=== PATIENT | female | born 1945 | race Asian ===

== ENCOUNTER 2016-10-25 05:09 | Day surgery (SDC) | payer OTHER ==
[2016-10-24 13:04] VITALS: BMI 25.9
[2016-10-25 08:21] LABS: INR 0.97 (0.82-1.09); PROTHROMBIN TIME (PATIENT) 10.7 SEC (9.98-11.88)
[2016-10-25 08:24] LABS: ACTIVATED PTT 34.1 SECONDS (26.9-34.4)
[2016-10-25] MEDS ORDERED: LIDOCAINE HCL 1%, 10 MG/ML (20ML VIAL) ONE (09:09)
[2016-10-25] MEDS ORDERED: BUPIVACAINE HCL/PF 0.5% (5MG/ML) 10 ML VIAL ONE (09:09)
[2016-10-25] MEDS ORDERED: ONDANSETRON 4 MG/2 ML VIAL IVPUSH PRN ×2 (09:41→10:57)
[2016-10-25] MEDS ORDERED: oxyCODONE HCL 5 MG TABLET PO PRN (09:41)
[2016-10-25] MEDS ORDERED: LACTATED RINGERS SOLUTION 1,000 ML IV SCH ×2 (09:45→11:00)
[2016-10-25] MEDS ORDERED: MIDAZOLAM HCL 2 MG/2 ML SINGLE DOSE VIAL ONE (09:46)
[2016-10-25] MEDS ORDERED: PROPOFOL 20 ML ONE (09:46)
[2016-10-25] MEDS ORDERED: LIDOCAINE HCL/PF 2% SDV 5ML VIAL ONE (09:48)
[2016-10-25] MEDS ORDERED: ceFAZolin SODIUM 1 GM VIAL ONE (09:48)
--- NOTE | 2016-10-25 10:08 | HP ---
Satellite [facility] - Chief Complaint Chief Complaint: left CTS History of Present Illness: left CTS History Source: Patient Limitations to Obtaining History: No Limitations - Past Medical History Allergies/Adverse Reactions: Allergies Allergy/AdvReac Type Severity Reaction Status Date / Time No Known Drug Allergies Allergy Verified 10/25/16 08:25 Cardiovascular: Yes: CAD (unclear), HTN, Hyperlipdemia Musculoskeletal: Yes: Other (right femoral fracture s/p repair) Endocrine: Yes: Diabetes Mellitus - Current Medications Current Medications: Home Medications Medication Instructions Recorded Atorvastatin Ca [Lipitor] 40 mg PO HS #30 tablet 04/29/14 Ferrous Sulfate [Feosol] 1 tab PO DAILY #30 ud 04/29/14 Metoprolol Succinate [Toprol XL -] 50 mg PO DAILY #30 tab.sr.24h 04/29/14 Nateglinide [Starlix (Nf) -] 120 mg PO TID #90 tablet 04/29/14 Furosemide [Lasix -] 40 mg PO DAILY 06/12/14 Aspirin [ASA -] 81 mg PO DAILY 04/05/16 Sitagliptin Phosphate [Januvia] 50 mg PO DAILY 04/05/16 Humalog 14 units SCJ ACDIN 09/05/16 Humalog 16 units SCJ ACBK 09/05/16 Meclizine HCl 12.5 mg PO DAILY 10/24/16 Satellite Physical Exam - Physical Examination Vital Signs: Vital Signs Period Temp Pulse Resp BP Sys/Gomez Pulse Ox Last 24 Hr 97.8 F 59 16 130/70 100 General Appearance: Well Nourished ENT: Clear Lung: Clear to auscultation Heart: Regular rate & rhythm Breasts: Soft Abdomen: Soft Extremities: No edema Satellite Impression/Plan - Impression/Plan Impression: left CTS, tenosynovitis Operative Procedure: Left CTR, tenosynovectomy Date to be Performed: 10/25/16
[2016-10-25] MEDS ORDERED: ceFAZolin SODIUM 1 GM VIAL IVPB ONE (10:19)
--- NOTE | 2016-10-25 10:56 | OP ---
Operative Note - Note: Operative Date: 10/25/16 Pre-Operative Diagnosis: left CTS, tenosynovitis Operation: left CTR, tenosynovectomy Post-Operative Diagnosis: Same as Pre-op Surgeon: Joshua Calderón Anesthesiologist/ORGANIZATIONAL DEVELOPMENT SPECIALIST: Austin Hernandez Anesthesia: General, Local Specimens Removed: tenosynovium Estimated Blood Loss (mls): 0 Blood Volume Replaced (mls): 0 Fluid Volume Replaced (mls): 500 Operative Report Dictated: Yes
[2016-10-25] MEDS ORDERED: PROMETHAZINE HCL 25 MG/1 ML VIAL IVPUSH PRN (10:57)
[2016-10-25 12:40] VITALS: TEMP 97.8
[2016-10-25 14:58] VITALS: BP 123/62; PULSE 70
--- NOTE | 2016-10-25 20:53 | SPEC ---
DATE OF OPERATION: 10/25/2016 PREOPERATIVE DIAGNOSIS: Left carpal tunnel syndrome with tenosynovitis. POSTOPERATIVE DIAGNOSIS: Left carpal tunnel syndrome with tenosynovitis. PROCEDURE: Left carpal tunnel release and tenosynovectomy of all 9 flexor tendons. SURGEON: Davi Walker MD ASSISTANTS: None. ANESTHESIA: MAC anesthesia, local injection of 12 mL of 0.5% Marcaine and 1% Lidocaine mix. ANESTHESIOLOGIST: Austin Hernandez MD. DRAINS: None. COMPLICATIONS: None. SPECIMEN: Tenosynovium, left wrist. BLOOD LOSS: None. BLOOD GIVEN: None. FLUID REPLACEMENT: 500 mL Plasmalyte. This patient is a 71-year-old female with preoperative diagnosis of left carpal tunnel syndrome. After understanding the potential risks, complications, alternatives and benefits of surgery versus nonsurgical treatment, the patient elected to undergo this procedure. DESCRIPTION OF PROCEDURE: The patient was brought to the operating room, peripheral IV placed and intravenous sedation was given. One gram of intravenous Ancef was given. MAC anesthesia was induced. A tourniquet was applied to the left upper arm and the left upper extremity was prepped and draped in sterile fashion. The entire case was done under 3.8 loupe magnification. A marking pen was utilized to jana out a longitudinal incision in an already existing skin crease. Twenty mL of 0.5% Marcaine mixed with 1% Lidocaine was injected in and around the surgical incision. The left upper extremity was elevated, exsanguinated with an Esmarch bandage and the tourniquet inflated to 250 mmHg. A No. 15 scalpel blade was utilized to cut down through the skin. Subcutaneous hemostasis was achieved with the bipolar cautery. Dissection was done through the superficial palmar fascia. Self-retaining retractors were placed into the wound. Under direct visualization, the transverse carpal ligament was transected with a No. 15 scalpel blade, exposing the median nerve and the contents of the carpal tunnel. The distal and proximal extents of the release were completed with a Littler scissor and checked with irrigation and my small finger. They were seen to be complete. Limited dissection was done on the radial side of the median nerve and more extensive dissection was done on the ulnar side of the median nerve. The patients nerve was seen to be quite compressed by epineurium and therefore a limited epineurotomy was performed. A Ragnell retractor was used to gently retract the median nerve in a radial direction. The patient had a lot of tenosynovitis and therefore a tenosynovectomy was performed off all 9 flexor tendons. This was passed off the field as tenosynovium, left wrist. The floor of the carpal tunnel was checked. There were no abnormal masses or ganglion cysts. The area was copiously irrigated and washed out and closure begun. Undyed 4-0 Vicryl was used to close the deep dermal layer. Final skin reapproximation was done with horizontal mattress 4-0 nylon sutures. The area was then washed and dried, covered with Xeroform, 4x4s, fluffs between the fingers, Webril and a 4-inch plaster roll was utilized to make a volar splint, which was then wrapped with Laura and Coban. The tourniquet was taken down after a total tourniquet time of 15 minutes. There were no complications during the case. The patient tolerated the procedure quite well and was brought to the ambulatory recovery room in stable condition. DAVI WALKER M.D. [id number]
--- NOTE | 2016-10-26 14:47 | PATH ---
Surgical Pathology Report Patient Name: BARNEY VEGA [facility]. Rec. #: [id number] /Age/Gender: 1945 (Age: 71) / F Account: [id number] Location: [facility] SURGICAL Taken: 10/25/2016 Received: 10/25/2016 Reported: 10/26/2016 Physicians: Joshua Calderón M.D. Specimen(s) Received LEFT TENOSYNOVIUM Clinical History Left carpal tunnel syndrome Final Diagnosis SOFT TISSUE, LEFT WRIST, CARPAL TUNNEL RELEASE: TENOSYNOVIUM. Electronically Signed Ricki Chowdhury M.D. Gross Description Received in formalin labeled "left tenosynovium," is a 1.3 x 0.9 x 0.3 cm aggregate of cabrera-yellow, irregular portions of soft tissue. The specimen is submitted in toto in one cassette. /10/25/201610/25/2016
== END 2016-10-25 14:10 | disposition home or self-care (01) ==
LOC: JASU-SURG 05:09
PROVIDERS: ATTEND Orthopaedic Surgery
PROC: 0LB60ZZ Excision of Left Lower Arm and Wrist Tendon, Open Approach (ICD-10-PCS; 2016-10-25)
PROC: 01N50ZZ Release Median Nerve, Open Approach (ICD-10-PCS; principal; 2016-10-25 09:30)
DX: G56.02 Carpal tunnel syndrome, left upper limb (principal); M65.88 Other synovitis and tenosynovitis, other site
CPT/HCPCS: 36415; 85610; 85730; 88304-TC; 94760

== ENCOUNTER 2017-08-11 08:49 | Emergency (ER) | payer OTHER ==
[2017-08-11 08:55] VITALS: TEMP 98.5; BMI 27.9
[2017-08-11] MEDS ORDERED: MAG HYDROX/AL HYDROX/SIMETH 30 ML UNIT-DOSE CUP PO ONE (09:22)
[2017-08-11] MEDS ORDERED: FAMOTIDINE IV 20 MG/12 ML VIAL IVPUSH ONE (09:22)
[2017-08-11] MEDS ORDERED: SODIUM CHLORIDE 500 ML IV STA (09:23)
[2017-08-11] MEDS ORDERED: SUCRALFATE 1 GM TABLET (FP) PO ONE (09:23)
[2017-08-11] MEDS ORDERED: FAMOTIDINE 20 MG/50 ML IVPB 20 MG/50 ML MG IVPB ONE (09:33)
[2017-08-11] MEDS ORDERED: MAG HYDROX/AL HYDROX/SIMETH 30 ML UNIT-DOSE CUP ONE (09:33)
[2017-08-11] MEDS ORDERED: SUCRALFATE 1 GM TABLET (FP) ONE (09:33)
--- NOTE | 2017-08-11 09:34 | PDOC ---
*Physical Exam - Vital Signs Last Vital Signs Temp Pulse Resp BP Pulse Ox 98.5 F 90 20 137/76 99 08/11/17 08:50 08/11/17 08:50 08/11/17 08:50 08/11/17 08:50 08/11/17 08:50 Heart Score/ECG Review #1 ECG reviewed & interpreted by me at: 09:35 08/11/17 09:40 NSR 67, T wave flat III, V4-V6, no std/bette, QTC 416 msec ED Treatment Course - LABORATORY CBC & Chemistry Diagram: 08/11/17 09:28 08/11/17 09:28 Medical Decision Making - Medical Decision Making 08/11/17 09:31 Pt seen by the Advanced Practice Provider under my direct supervision Pt interviewed and examined Ancillary studies reviewed I agree with plan as outlined by the Advanced Practice Provider CHERYL Zarate Vital Signs Temp Pulse Resp BP Pulse Ox 98.5 F 90 20 137/76 99 08/11/17 08:50 08/11/17 08:50 08/11/17 08:50 08/11/17 08:50 08/11/17 08:50 72-year-old female with past medical history diabetes, gastric bypass presents to the emergency department for epigastric pain for last several days. Patient reports intermittent burning-like epigastric pain is worsened after eating some spicy food. Patient is a status post cholecystectomy. Denies recent illnesses, fevers, chills. Patient did get recent blood work performed yesterday by her director of cardiac rehabilitation secondary to her chronic kidney disease. She is followed up by director of cardiac rehabilitation Dr. Garcia. Patient has had low calcium an elevated parathyroid hormones in the past. I examined the patient and the patient has epigastric tenderness to palpation with no focal rebound or guarding. It is very possible this may be gastritis, epigastric ulcer disease, duodenal ulcer disease. However, it is important to investigate for bariatric complications. We'll obtain labs, treat as GERD, and obtain CAT scan of the abdomen pelvis. If the workup is unremarkable, and the patient reports feeling better after GERD medications, the patient can be discharged with PMD follow-up. 08/11/17 10:56 CBC, BMP 08/11/17 09:28 08/11/17 09:28 CMP Sodium 138 mmol/L (136-145) 08/11/17 09:28 Potassium 4.1 mmol/L (3.5-5.1) 08/11/17 09:28 Chloride 109 mmol/L (98-107) H 08/11/17:28 Carbon Dioxide 21 mmol/L (21-32) 08/11/17 09: Anion Gap 8 (8-16) 08/11/17: BUN 39 mg/dL (7-18) H 08/11/17:28 Creatinine 1.5 mg/dL (0.55-1.02) H 08/11/17: Creat Clearance w eGFR 34.23 (>60) 08/11/17: Random Glucose 281 mg/dL (74-106) H 08/11/17: Calcium 6.9 mg/dL (8.5-10.1) L* 08/11/17: Total Bilirubin 0.3 mg/dL (0.2-1.0) D 08/11/17: AST 17 U/L (15-37) 08/11/17: ALT 15 U/L (12-78) 08/11/17: Alkaline Phosphatase 113 U/L (45-117) D 08/11/17: Creatine Kinase 80 IU/L (26-192) 08/11/17: Troponin I < 0.02 ng/ml (0.00-0.05) 08/11/17: Total Protein 7.1 g/dl (6.4-8.2) 08/11/17: Albumin 3.4 g/dl (3.4-5.0) 08/11/17: Cr stable. Calcium noted to be 6.9. Will replete. CHERYL Zarate had touch base with pt's director of cardiac rehabilitation Dr. Garcia who agrees with repletion and if pt eligible for discharge, to be d/c with oral calcium supplements. CT pending. *DC/Admit/Observation/Transfer - Referrals Referrals: Nydia Peres MD [Primary Care Provider] - - Patient Instructions - Post Discharge Activity
--- NOTE | 2017-08-11 09:36 | PDOC ---
History of Present Illness - General Chief Complaint: Pain Stated Complaint: STOMACH PAIN Time Seen by Provider: 08/11/17 09:05 History Source: Patient - History of Present Illness Timing/Duration: reports: constant Quality: reports: moderate Abdominal Pain Onset Location: reports: epigastric Pain Radiation: reports: no radiation Aggravating Factors: improves with: Eating Past History - Past Medical History Allergies/Adverse Reactions: Allergies Allergy/AdvReac Type Severity Reaction Status Date / Time No Known Drug Allergies Allergy Verified 08/11/17 08:52 Home Medications: Ambulatory Orders Atorvastatin Ca [Lipitor] 40 mg PO HS #30 tablet 04/29/14 Ferrous Sulfate [Feosol] 1 tab PO DAILY #30 ud 04/29/14 Metoprolol Succinate [Toprol XL -] 50 mg PO DAILY #30 tab.sr.24h 04/29/14 Nateglinide [Starlix (Nf) -] 120 mg PO TID #90 tablet 04/29/14 Furosemide [Lasix -] 40 mg PO DAILY 06/12/14 Aspirin [ASA -] 81 mg PO DAILY 04/05/16 Sitagliptin Phosphate [Januvia] 50 mg PO DAILY 04/05/16 Calcium Carbonate 650 mg PO BID #60 tablet 08/11/17 Famotidine [Pepcid] 20 mg PO DAILY #14 tablet 08/11/17 Insulin Lispro [Humalog] 14 unit SQ ACDIN 08/11/17 Insulin Lispro [Humalog] 16 unit SQ ACBK 08/11/17 Mag Hydrox/Al Hydrox/Simeth [Mylanta Suspension -] 30 ml PO Q6H #1 bottle Anemia: Yes Asthma: No Cancer: No Cardiac Disorders: Yes (HX.SOB,CARDIAC CATHERIZATION) CVA: No COPD: No CHF: No DVT: No Dementia: No Diabetes: Yes GI Disorders: Yes (GASTRIC BYPASS) Disorders: No HTN: Yes Hypercholesterolemia: Yes Liver Disease: No Seizures: No Thyroid Disease: No - Surgical History Abdominal Surgery: Yes (GASTRIC BYPASS) Appendectomy: No Cardiac Surgery: Yes (cardiac cath) Cholecystectomy: Yes Lung Surgery: No Neurologic Surgery: No Orthopedic Surgery: Yes (femur fx repair/rt knee replacement) - Suicide/Smoking/Psychosocial Hx Smoking Status: No Smoking History: Never smoked Have you smoked in the past 12 months: No Number of Cigarettes Smoked Daily: 0 Hx Alcohol Use: No Drug/Substance Use Hx: No Substance Use Type: None Hx Substance Use Treatment: No Review of Systems - Review of Systems Constitutional: No: Chills, Fever, Unintentional Wgt. Loss Respiratory: No: Shortness of Breath Cardiac (ROS): No: Chest Pain ABD/GI: No: Blood Streaked Bowels, Constipated, Diarrhea, Nausea, Rectal Bleeding, Vomiting, Tarry Stools : No: Dysuria *Physical Exam - Vital Signs Last Vital Signs Temp Pulse Resp BP Pulse Ox 98.5 F 90 20 137/76 99 08/11/17 08:50 08/11/17 08:50 08/11/17 08:50 08/11/17 08:50 08/11/17 08:50 - Physical Exam General Appearance: Yes: Appropriately Dressed. No: Apparent Distress HEENT: positive: Normal Voice Neck: positive: Supple Respiratory/Chest: positive: Lungs Clear, Normal Breath Sounds. negative: Respiratory Distress Cardiovascular: positive: Regular Rate, S1, S2 Gastrointestinal/Abdominal: positive: Normal Bowel Sounds, Tender (to epigastrium), Soft. negative: Pulsatile Mass, Distended, Guarding, Rebound, Hepatomegaly, Spleenomegaly Musculoskeletal: negative: CVA Tenderness Extremity: positive: Normal Inspection Integumentary: positive: Dry, Warm Neurologic: positive: Fully Oriented, Alert, Normal Mood/Affect ED Treatment Course - LABORATORY CBC & Chemistry Diagram: 08/11/17 09:28 08/11/17 09:28 - RADIOLOGY Radiology Studies Ordered: Category Date Time Status ABDOMEN & PELVIS CT W/O CONTR [CT] Stat CT Scan 08/11/17 09:30 Ordered CHEST X-RAY PORTABLE* [RAD] Stat Radiology 08/11/17 09:21 Ordered Medical Decision Making - Medical Decision Making 08/11/17 09:58 72-year-old female, history of HTN, CAD, IDDM, CKD (of note has had chronic low ca w/ increased PTH on labs-m/l complication of CKD), status post moriah and gastric bypass remotely, here with epigastric pain 1 week, unable to describe pain, non-radiating, 7/10, worse after food. Had nausea 2 days ago that has since resolved. No vomiting, change in bowel movements, melena, bright red blood per rectum, fever or chills. Denies flank pain or dysuria. No CP/SOB. States she has never had this pain before. Has not taken anything for pain See exam Possible gastritis/GERD vs gastric ulcer, less likely CBD stone/cholangitis, consider complication of previous bypass surgery, less likely cardiac -pain control -labs -CT as d/w ED attg 08/11/17 10:06 08/11/17 10:[address] Garcia of renal who follows up with patient, agrees with a gram of calcium gluconate in ED and states if patient discharged, to be started on calcium carbonate 650 twice a day and for patient to call office for appointment on Sunday08/11/17 12:[address] unremarkable. Patient better with meds and able to tolerate po. Will discharge with PMD and renal follow-up *DC/Admit/Observation/Transfer Diagnosis at time of Disposition: Epigastric abdominal pain - Discharge Dispostion Disposition: HOME Condition at time of disposition: Improved - Prescriptions Prescriptions: Calcium Carbonate 650 mg PO BID #60 tablet Famotidine [Pepcid] 20 mg PO DAILY #14 tablet Mag Hydrox/Al Hydrox/Simeth [Mylanta Suspension -] 30 ml PO Q6H #1 bottle - Referrals Referrals: Nydia Peres MD [Primary Care Provider] - - Patient Instructions Printed Discharge Instructions: Gastritis Additional Instructions: Take medications as prescribed Follow-up with Dr. Garcia on Sunday. Also follow-up with your PMD - Post Discharge Activity
[2017-08-11 09:48] LABS: BASO % 1.3 % (0-2.0); EOS % 4.4 % (0-4.5); HEMATOCRIT 32.2 % (32.4-45.2); HEMOGLOBIN 10.4 GM/dL (10.7-15.3); LYMPH % 20.2 % (8-40); MCH 28.7 pg (25.7-33.7); MCHC 32.3 g/dl (32.0-36.0); MEAN CELL VOLUME 88.9 fl (80-96); MEAN PLT VOLUME 8.1 fl (7.5-11.1); MONO % 8.1 % (3.8-10.2); PLATELET COUNT 184 K/MM3 (134-434); RBC 3.62 M/mm3 (3.60-5.2); WHITE BLOOD COUNT 6.5 K/mm3 (4.0-10.0)
[2017-08-11 09:57] LABS: URINE APPEARANCE CLEAR; URINE BILIRUBIN NEGATIVE (NEGATIVE); URINE BLOOD NEGATIVE (NEGATIVE); URINE COLOR LTYELLOW; URINE GLUCOSE (UA) 3+ (NEGATIVE); URINE KETONE NEGATIVE (NEGATIVE); URINE NITRITE NEGATIVE (NEGATIVE); URINE PROTEIN NEGATIVE (NEGATIVE); URINE UROBILINOGEN NEGATIVE mg/dL (0.2-1.0)
[2017-08-11 09:58] LABS: URINE LEUK ESTERASE 2+ (NEGATIVE)
[2017-08-11 09:59] LABS: EPI CELLS RARE /HPF (FEW); GRANULAR CASTS 2 /lpf; URINE HYALINE CAST 1 /lpf; URINE MUCUS RARE
[2017-08-11 10:09] LABS: ALBUMIN 3.4 g/dl (3.4-5.0); ANION GAP 8 (8-16); BILIRUBIN,TOTAL 0.3 mg/dL (0.2-1.0); BLOOD UREA NITROGEN 39 mg/dL (7-18); CHLORIDE 109 mmol/L (98-107); CO2 21 mmol/L (21-32); CREATININE 1.5 mg/dL (0.55-1.02); GLUCOSE,RANDOM 281 mg/dL (74-106); POTASSIUM 4.1 mmol/L (3.5-5.1); SGOT/AST 17 U/L (15-37); SGPT/ALT 15 U/L (12-78); SODIUM 138 mmol/L (136-145); TOT PROT 7.1 g/dl (6.4-8.2)
[2017-08-11 10:12] LABS: ALK PHOS 113 U/L (45-117)
[2017-08-11 10:15] LABS: CALCIUM 6.9 mg/dL (8.5-10.1)
[2017-08-11] MEDS ORDERED: CALCIUM GLUCONATE 10% - 1,000 MG/10 ML VIAL IVPUSH ONE ×2 (10:15→10:34)
[2017-08-11] MEDS ORDERED: CALCIUM GLUCONATE 10% - 1,000 MG/10 ML VIAL ONE (11:29)
[2017-08-11] MEDS ORDERED: morphine CARPU-JECT 4 MG/1 ML DISP.SYRIN IVPUSH ONE (11:54)
[2017-08-11] MEDS ORDERED: morphine CARPU-JECT 10 MG/1 ML DISP.SYRIN ONE (11:54)
[2017-08-11 12:10] VITALS: BP 130/60; PULSE 55
[2017-08-11 12:58] LABS: LIPASE 166 U/L (73-393)
--- NOTE | 2017-08-11 16:32 | EKG ---
Test Reason : Blood Pressure : / mmHG Vent. Rate : 067 BPM Atrial Rate : 067 BPM P-R Int : 172 ms QRS Dur : 068 ms QT Int : 394 ms P-R-T Axes : 024 007 057 degrees QTc Int : 416 ms NORMAL SINUS RHYTHM CANNOT RULE OUT ANTERIOR INFARCT (CITED ON OR BEFORE 11-AUG-2017) ABNORMAL ECG WHEN COMPARED WITH ECG OF 23-NOV-2015 01:41, CRITERIA FOR INFERIOR INFARCT ARE NO LONGER PRESENT NON-SPECIFIC CHANGE IN ST SEGMENT IN INFERIOR LEADS NONSPECIFIC T WAVE ABNORMALITY NO LONGER EVIDENT IN INFERIOR LEADS T WAVE INVERSION NO LONGER EVIDENT IN ANTERIOR LEADS QT HAS SHORTENED Confirmed by HARVINDER SHOEMAKER MD ([id number]) on 08/11/2017 4:32:24 PM Referred By: Confirmed By:HARVINDER SHOEMAKER MD
== END 2017-08-11 13:33 | disposition home or self-care (01) ==
LOC: JER 08:49
PROC: 3E033NZ Introduction of Analgesics, Hypnotics, Sedatives into Peripheral Vein, Percutaneous Approach (ICD-10-PCS; principal; 2017-08-11)
DX: R10.13 Epigastric pain (principal); I12.9 Hypertensive chronic kidney disease with stage 1 through stage 4 chronic kidney disease, or unspecified chronic kidney disease; E11.22 Type 2 diabetes mellitus with diabetic chronic kidney disease; N18.9 Chronic kidney disease, unspecified; Z79.84 Long term (current) use of oral hypoglycemic drugs; Z98.84 Bariatric surgery status
CPT/HCPCS: 36415; 71045-TC; 74176-TC; 80053; 81003; 81015; 82550; 83690; 84484; 85025; 87086; 93005; 93010; 96374; 99283-25

== ENCOUNTER 2018-04-18 15:20 | Emergency (ER) | payer OTHER ==
--- NOTE | 2018-04-18 15:24 | PDOC ---
Rapid Medical Evaluation Time Seen by Provider: 04/18/18 15:22 Medical Evaluation: Allergies Allergy/AdvReac Type Severity Reaction Status Date / Time No Known Drug Allergies Allergy Verified 08/11/17 08:52 04/18/18 15:22 I have performed a brief in-person evaluation of this patient. The patient presents with a chief complaint of: right arm pain x 1 week. Seen by pmd who did xray with normal results Given pain medication that is not effective. States pain is with or without movement Pertinent physical exam findings are NAD even and unlabored breathing moving right arm without difficulty I have ordered the following: none The patient will proceed to Ed for further evaluation
[2018-04-18 15:25] VITALS: BP 135/40; PULSE 65; TEMP 98.5; BMI 25.9
[2018-04-18] MEDS ORDERED: KETOROLAC TROMETHAMINE 30 MG/1 ML VIAL IM ONE (15:49)
[2018-04-18] MEDS ORDERED: KETOROLAC TROMETHAMINE 30 MG/1 ML VIAL ONE (15:52)
--- NOTE | 2018-04-18 15:55 | PDOC ---
History of Present Illness - General Chief Complaint: Pain, Acute Stated Complaint: RT ARM PAIN Time Seen by Provider: 04/18/18 15:22 History Source: Patient Exam Limitations: No Limitations - History of Present Illness Initial Comments: 04/18/18 15:53 73 yr female with c/o right arm and neck pain for 3 days not relieved with naprosyn, worse with movement and sleeping. pt denies any trauma, no fever no chest pain or shortness of breath. Pt saw her PMD 04/09/18 for same had neck and shoulder xray done here. Past History - Past Medical History Allergies/Adverse Reactions: Allergies Allergy/AdvReac Type Severity Reaction Status Date / Time No Known Drug Allergies Allergy Verified 04/18/18 15:24 Home Medications: Ambulatory Orders Atorvastatin Ca [Lipitor] 40 mg PO HS #30 tablet 04/29/14 Ferrous Sulfate [Feosol] 1 tab PO DAILY #30 ud 04/29/14 Metoprolol Succinate [Toprol XL -] 50 mg PO DAILY #30 tab.sr.24h 04/29/14 Furosemide [Lasix -] 40 mg PO DAILY 06/12/14 Aspirin [ASA -] 81 mg PO DAILY 04/05/16 Sitagliptin Phosphate [Januvia] 50 mg PO DAILY 04/05/16 Calcium Carbonate 650 mg PO BID #60 tablet 08/11/17 Famotidine [Pepcid] 20 mg PO DAILY #14 tablet 08/11/17 Insulin Lispro [Humalog] 14 unit SQ ACDIN 08/11/17 Insulin Lispro [Humalog] 16 unit SQ ACBK 08/11/17 Furosemide 40 mg PO DAILY 04/15/18 Meloxicam 15 mg PO DAILY 04/15/18 Nateglinide [Starlix (Nf)] 120 mg PO TID 04/15/18 Sertraline HCl [Zoloft -] 50 mg PO DAILY 04/15/18 Sitagliptin Phosphate [Januvia] 50 mg PO DAILY 04/15/18 Cyclobenzaprine HCl [Flexeril -] 5 mg PO TID PRN #21 tablet 04/18/18 Anemia: Yes Asthma: No Cancer: No Cardiac Disorders: Yes (HX.SOB,CARDIAC CATHERIZATION) CVA: No COPD: No CHF: No DVT: No Dementia: No Diabetes: Yes GI Disorders: Yes (GASTRIC BYPASS) Disorders: No HTN: Yes Hypercholesterolemia: Yes Liver Disease: No Seizures: No Thyroid Disease: No - Surgical History Abdominal Surgery: Yes (GASTRIC BYPASS) Appendectomy: No Cardiac Surgery: Yes (cardiac cath) Cholecystectomy: Yes Lung Surgery: No Neurologic Surgery: No Orthopedic Surgery: Yes (femur fx repair/rt knee replacement) - Suicide/Smoking/Psychosocial Hx Smoking Status: No Smoking History: Never smoked Have you smoked in the past 12 months: No Number of Cigarettes Smoked Daily: 0 Hx Alcohol Use: No Drug/Substance Use Hx: No Substance Use Type: None Hx Substance Use Treatment: No Review of Systems - Review of Systems Able to Perform ROS?: Yes Is the patient limited Wolof proficient: No Constitutional: No: Symptoms Reported HEENTM: No: Symptoms Reported Respiratory: No: Symptoms reported Cardiac (ROS): No: Symptoms Reported ABD/GI: No: Symptoms Reported : No: Symptoms Reported Musculoskeletal: Yes: Symptoms Reported *Physical Exam - Vital Signs Last Vital Signs Temp Pulse Resp BP Pulse Ox 98.5 F 65 18 135/40 98 04/18/18 15:21 04/18/18 15:21 04/18/18 15:21 04/18/18 15:21 04/18/18 15:21 - Physical Exam General Appearance: Yes: Nourished, Appropriately Dressed HEENT: positive: EOMI, [place] Neck: positive: Supple, Tender lateral. negative: Tender, Tender midline Respiratory/Chest: positive: Lungs Clear, Normal Breath Sounds Cardiovascular: positive: Regular Rhythm, Regular Rate Musculoskeletal: positive: Normal Inspection, Decreased Range of Motion, Muscle Spasm (lateral soft tissue paraspinal cervical muscle tenderness, pain reproduced with turning to the right and raising the arm, no midline tenderness) . negative: CVA Tenderness, CVA Tenderness (R), CVA Tenderness (L), Vertebral Tenderness Extremity: positive: Normal Capillary Refill, Normal Inspection, Normal Range of Motion. negative: Tender Integumentary: positive: Normal Color, Dry, Warm Neurologic: positive: Fully Oriented, Alert, Normal Mood/Affect, Normal Response , Motor Strength 5/5 Medical Decision Making - Medical Decision Making 04/18/18 15:57 cc: neck pain radiates to the shoulder right side for one week worse at night and with movement pt states pain started after blood draw from the right antecub area no swelling to the distal arm , warm pink cap refil 2 seconds all digits will get US to r/o dvt toradol for pain 04/19/18 15:21 I called pt today for courtesy follow up her pain has improved "just a little" she has no other symptoms pt has apt Apr 25 with , I have encourage pr to return to ER if pain is continuing. Pt understands and will return if it is worse or continuing. *DC/Admit/Observation/Transfer Diagnosis at time of Disposition: Cervical radiculopathy - Discharge Dispostion Disposition: HOME Condition at time of disposition: Good - Prescriptions Prescriptions: Cyclobenzaprine HCl [Flexeril -] 5 mg PO TID PRN #21 tablet PRN Reason: Muscle Spasms - Referrals Referrals: Nydia Peres MD [Primary Care Provider] - Santy Abdi MD [Staff Physician] - - Patient Instructions Additional Instructions: please follow with the orthopedist or your primary care next week take flexeril for muscle spasm take with the naprosyn or take with extra strength tylenol 975mg every 4-6hrs also apply Icy Hot or aspercream to the area of pain sold over the counter apply warm compresses to the neck area make sure you are sleeping on a good mattress and pillow as this can cause neck pain and make it worse Return to ER for any worsening symptoms - Post Discharge Activity
== END 2018-04-18 17:11 | disposition home or self-care (01) ==
LOC: JERFT 15:20
PROC: 3E0233Z Introduction of Anti-inflammatory into Muscle, Percutaneous Approach (ICD-10-PCS; principal; 2018-04-18)
DX: M54.12 Radiculopathy, cervical region (principal); Z98.84 Bariatric surgery status; I10 Essential (primary) hypertension; E78.00 Pure hypercholesterolemia, unspecified; E11.9 Type 2 diabetes mellitus without complications
CPT/HCPCS: 93971; 99281-25

== ENCOUNTER 2018-06-17 06:14 | Day surgery (SDC) | payer OTHER ==
[2018-06-14 09:10] VITALS: BMI 25.9
[~2018-06-17 06:14] MED LIST: BSS (NA/CA/MG/K) BALANCED SALT SOLUTION OPHTH SOLN 15 ML BOTTLE OS ONE; CHONDROITIN SU A/HYALUR SOD 1 KIT IO ONE; EPINEPHrine/PF 1 MG/1 ML (1:1,000) AMPULE SQ ONE; LIDOCAINE HCL 1% PRESERVATIVE FREE - 30ML VIAL IO ONE; POVIDONE-IODINE 5% OPHTHALMIC PREP 30 ML SOLUTION OS ONE; TETRACAINE 0.5% OPHTH SOLN 2 ML BOTTLE OS ONE; TOBRA 0.3%/DEXAMETH 0.1% OPHTHALMIC SUSP 2.5 ML BTL OS ONE
[2018-06-17 06:58] VITALS: TEMP 97.8
[2018-06-17] MEDS: CYCLOPENTOLATE HCL 1% OPHTH SOLN 2 ML BOTTLE ONE ×3 (07:00→07:20)
[2018-06-17] MEDS: TROPICAMIDE 1% OPHTH SOLN 15 ML BOTTLE ONE ×3 (07:00→07:20)
[2018-06-17] MEDS: PHENYLEPHRINE 2.5% OPHTH SOLN 15 ML BOTTLE ONE ×3 (07:00→07:20)
[2018-06-17] MEDS: MOXIFLOXACIN HCL 0.5% OPHTHALMIC 3 ML BOTTLE ONE ×3 (07:00→07:20)
[2018-06-17] MEDS: DICLOFENAC SODIUM 0.1% OPHTHALMIC 2.5ML BOTTLE ONE ×3 (07:00→07:20)
[2018-06-17] MEDS ORDERED: CHONDROITIN SU A/HYALUR SOD 1 KIT ONE (07:15)
[2018-06-17] MEDS ORDERED: EPINEPHrine/PF 1 MG/1 ML (1:1,000) AMPULE ONE (07:23)
[2018-06-17] MEDS ORDERED: TOBRA 0.3%/DEXAMETH 0.1% OPHTHALMIC SUSP 2.5 ML BTL ONE (07:23)
[2018-06-17] MEDS ORDERED: POVIDONE-IODINE 5% OPHTHALMIC PREP 30 ML SOLUTION ONE (07:24)
[2018-06-17] MEDS ORDERED: TETRACAINE 0.5% OPHTH SOLN 2 ML BOTTLE ONE (07:24)
[2018-06-17] MEDS ORDERED: LIDOCAINE HCL/PF 1% SDV 5ML VIAL ONE (07:24)
[2018-06-17] MEDS ORDERED: MIDAZOLAM HCL 2 MG/2 ML SINGLE DOSE VIAL ONE (08:14)
[2018-06-17] MEDS ORDERED: TETRACAINE 0.5% OPHTH SOLN 2 ML BOTTLE OS ONE (08:16)
[2018-06-17] MEDS ORDERED: POVIDONE-IODINE 5% OPHTHALMIC PREP 30 ML SOLUTION OS ONE (08:19)
[2018-06-17] MEDS ORDERED: LIDOCAINE HCL 1% PRESERVATIVE FREE - 30ML VIAL IO ONE (08:29)
[2018-06-17] MEDS ORDERED: CHONDROITIN SU A/HYALUR SOD 1 KIT IO ONE (08:29)
[2018-06-17] MEDS ORDERED: BSS (NA/CA/MG/K) BALANCED SALT SOLUTION OPHTH SOLN 15 ML BOTTLE OS ONE (08:29)
[2018-06-17] MEDS ORDERED: PHENYLEPHRINE/KETOROLAC 4 ML VIAL IO ONE ×2 (08:41→11:30)
[2018-06-17] MEDS ORDERED: TOBRA 0.3%/DEXAMETH 0.1% OPHTHALMIC SUSP 2.5 ML BTL OS ONE (08:59)
[2018-06-17 13:35] VITALS: BP 113/56; PULSE 70
--- NOTE | 2018-06-17 22:45 | OP ---
DATE OF OPERATION: 06/17/2018 SPECIALIST: Johnathan Scott MD PREOPERATIVE DIAGNOSIS: Cataract, left eye. POSTOPERATIVE DIAGNOSIS: Cataract, left eye. PROCEDURE: Phacoemulsification of cataract, left eye, with in-the-bag placement of AU00T0, 22.5 diopter intraocular lens with use of Omidria. ANESTHESIA: Local. DESCRIPTION OF PROCEDURE: Patient was brought to the operating room, and the left eye was prepped and draped in the usual sterile fashion for ophthalmic surgery. The microscope was swung into position. After tetracaine eye drops were placed on the eye, the 2.75 keratome was used to enter the anterior chamber at approximately 2 o'clock position with an accessory port made at approximately 5 o'clock position after filling the anterior chamber with 0.5 mL of preservative-free lidocaine and Viscoat. Cystotome and Utrata forceps were used to make a continuous circular capsulorrhexis with BSS, performing hydrodissection and hydrodelineation and rotation of the lens nucleus. Phacoemulsification was carried out in a [id number] technique, and IA was used to remove residual cortical material from the capsular bag. The capsular bag was found to be intact, into which was injected with Provisc, and a 22.5 diopter AU00T0 IOL was injected. Sinskey hook was used to dial into position, and IA was used to remove residual viscoelastic from the capsular bag and anterior chamber. BSS was used to perform hydration of the corneal lip wounds which were then found to be watertight. The contact lens soaked in TobraDex solution for approximately 10 minutes was then draped in the cornea. The eye was patched and shielded. The patient was transferred to recovery room in a stable condition, having tolerated the procedure well. JOHNATHAN SCOTT M.D. [id number]
== END 2018-06-17 10:05 | disposition home or self-care (01) ==
LOC: JASU-SURG 06:14
PROVIDERS: ATTEND Ophthalmology
PROC: 08RK3JZ Replacement of Left Lens with Synthetic Substitute, Percutaneous Approach (ICD-10-PCS; principal; 2018-06-17 08:00)
DX: H26.9 Unspecified cataract (principal)
CPT/HCPCS: 82962; C9447

== ENCOUNTER 2018-07-15 06:31 | Day surgery (SDC) | payer OTHER ==
[2018-07-12 18:08] VITALS: BMI 25.9
[~2018-07-15 06:31] MED LIST changes: -BSS (NA/CA/MG/K) BALANCED SALT SOLUTION OPHTH SOLN 15 ML BOTTLE OS ONE; -CHONDROITIN SU A/HYALUR SOD 1 KIT IO ONE; -EPINEPHrine/PF 1 MG/1 ML (1:1,000) AMPULE SQ ONE; -LIDOCAINE HCL 1% PRESERVATIVE FREE - 30ML VIAL IO ONE; -POVIDONE-IODINE 5% OPHTHALMIC PREP 30 ML SOLUTION OS ONE; -TETRACAINE 0.5% OPHTH SOLN 2 ML BOTTLE OS ONE; +TOBRA 0.3%/DEXAMETH 0.1% OPHTHALMIC SUSP 2.5 ML BTL OD ONE; -TOBRA 0.3%/DEXAMETH 0.1% OPHTHALMIC SUSP 2.5 ML BTL OS ONE
[2018-07-15 06:50] VITALS: TEMP 97.8
[2018-07-15] MEDS: CYCLOPENTOLATE HCL 1% OPHTH SOLN 2 ML BOTTLE ONE ×2 (07:10→07:19)
[2018-07-15] MEDS: TROPICAMIDE 1% OPHTH SOLN 15 ML BOTTLE ONE ×2 (07:11→07:19)
[2018-07-15] MEDS: PHENYLEPHRINE 2.5% OPHTH SOLN 15 ML BOTTLE ONE ×2 (07:11→07:19)
[2018-07-15] MEDS: MOXIFLOXACIN HCL 0.5% OPHTHALMIC 3 ML BOTTLE ONE ×2 (07:11→07:19)
[2018-07-15] MEDS: DICLOFENAC SODIUM 0.1% OPHTHALMIC 2.5ML BOTTLE ONE ×2 (07:11→07:19)
[2018-07-15] MEDS ORDERED: POVIDONE-IODINE 5% OPHTHALMIC PREP 30 ML SOLUTION ONE (07:50)
[2018-07-15] MEDS ORDERED: CHONDROITIN SU A/HYALUR SOD 1 KIT ONE (07:50)
[2018-07-15] MEDS ORDERED: TOBRA 0.3%/DEXAMETH 0.1% OPHTHALMIC SUSP 2.5 ML BTL ONE (07:54)
[2018-07-15] MEDS ORDERED: BSS (NA/CA/MG/K) BALANCED SALT SOLUTION OPHTH SOLN 15 ML BOTTLE ONE (07:55)
[2018-07-15] MEDS ORDERED: LIDOCAINE HCL/PF 1% SDV 5ML VIAL ONE (07:55)
[2018-07-15] MEDS ORDERED: TETRACAINE 0.5% OPHTH SOLN 2 ML BOTTLE ONE (07:55)
[2018-07-15] MEDS ORDERED: TETRACAINE 0.5% OPHTH SOLN 2 ML BOTTLE OD ONE (08:24)
[2018-07-15] MEDS ORDERED: POVIDONE-IODINE 5% OPHTHALMIC PREP 30 ML SOLUTION OD ONE (08:26)
[2018-07-15] MEDS ORDERED: MIDAZOLAM HCL 2 MG/2 ML SINGLE DOSE VIAL ONE (08:26)
[2018-07-15] MEDS ORDERED: LIDOCAINE HCL 1% PRESERVATIVE FREE - 30ML VIAL IO ONE (08:39)
[2018-07-15] MEDS ORDERED: BSS (NA/CA/MG/K) BALANCED SALT SOLUTION OPHTH SOLN 15 ML BOTTLE OD ONE (08:39)
[2018-07-15] MEDS ORDERED: CHONDROITIN SU A/HYALUR SOD 1 KIT IO ONE ×2 (08:39)
[2018-07-15] MEDS ORDERED: EPINEPHrine/PF 1 MG/1 ML (1:1,000) AMPULE SQ ONE (08:48)
[2018-07-15] MEDS ORDERED: TOBRA 0.3%/DEXAMETH 0.1% OPHTHALMIC SUSP 2.5 ML BTL OD ONE (09:04)
[2018-07-15 10:22] VITALS: BP 135/65; PULSE 64
--- NOTE | 2018-07-15 20:12 | OP ---
DATE OF OPERATION: 07/15/2018 SURGEON: Johnathan Scott MD PREOPERATIVE DIAGNOSIS: Cataract, right eye. POSTOPERATIVE DIAGNOSIS: Cataract, right eye. ANESTHESIA: Local. DESCRIPTION OF PROCEDURE: Patient was brought to the operating room, and the right eye was prepped and draped in the usual sterile fashion for ophthalmic surgery. The microscope was swung into position, after placing tetracaine eye drops. The 2.75 keratome was used to enter the anterior chamber at approximately 10 o'clock position with an accessory port made at 2 o'clock position after filling the anterior chamber with 0.5 mL of preservative-free lidocaine and Viscoat. The cystotome and Utrata forceps were used to make a continuous circular capsulorrhexis. BSS was used to perform hydrodissection and hydrodelineation of the lens nucleus which was rotated freely. Phacoemulsification was carried out in the [id number] technique. IA was used to remove residual cortical material from the capsular bag which was found to be intact and which was injected with an [id number] 22.5 diopter IOL and dialed into position using the Sinskey hook. IA was used to remove viscoelastic from the capsular bag and anterior chamber. BSS was used to perform hydration of the corneal lip wounds which were then found to be watertight. Contact lens soaked in TobraDex solution for approximately 10 minutes was then draped on the cornea. The eye was patched and shielded. The patient was transferred to recovery room in a stable condition, having tolerated the procedure well. JOHNATHAN SCOTT M.D. [id number]
== END 2018-07-15 10:26 | disposition home or self-care (01) ==
LOC: JASU-SURG 06:31
PROVIDERS: ATTEND Ophthalmology
PROC: 08RJ3JZ Replacement of Right Lens with Synthetic Substitute, Percutaneous Approach (ICD-10-PCS; principal; 2018-07-15 08:00)
DX: H26.9 Unspecified cataract (principal)
CPT/HCPCS: 82962

== ENCOUNTER 2018-08-06 08:07 | Day surgery (SDC) | payer OTHER ==
[2018-08-05 14:45] VITALS: BMI 26.1
[2018-08-06 09:35] VITALS: TEMP 98
[2018-08-06 10:03] VITALS: PULSE 62
[2018-08-06 10:44] LABS: BASO % 1.2 % (0-2.0); EOS % 4.3 % (0-4.5); HEMOGLOBIN 9.6 GM/dL (10.7-15.3); LYMPH % 29.3 % (8-40); MCH 29.8 pg (25.7-33.7); MCHC 34.4 g/dl (32.0-36.0); MEAN CELL VOLUME 86.7 fl (80-96); MEAN PLT VOLUME 7.8 fl (7.5-11.1); MONO % 7.1 % (3.8-10.2); NEUT % 58.1 % (42.8-82.8); PLATELET COUNT 204 K/MM3 (134-434); RBC 3.23 M/mm3 (3.60-5.2); RDW 13.1 % (11.6-15.6); WHITE BLOOD COUNT 5.5 K/mm3 (4.0-10.0)
[2018-08-06 11:26] LABS: GLUCOSE,RANDOM 135 mg/dL (74-106)
[2018-08-06 11:27] LABS: ALBUMIN 3.5 g/dl (3.4-5.0); ANION GAP 10 MMOL/L (8-16); BILIRUBIN,TOTAL 0.5 mg/dL (0.2-1); BLOOD UREA NITROGEN 31 mg/dL (7-18); CALCIUM 8.5 mg/dL (8.5-10.1); CHLORIDE 112 mmol/L (98-107); CO2 23 mmol/L (21-32); CREATININE 1.6 mg/dL (0.55-1.3); POTASSIUM 4.4 mmol/L (3.5-5.1); SODIUM 145 mmol/L (136-145); TOT PROT 6.9 g/dl (6.4-8.2)
[2018-08-06 11:28] LABS: ALK PHOS 77 U/L (45-117); BILIRUBIN,DIRECT 0.2 mg/dL (0.0-0.2); SGOT/AST 25 U/L (15-37); SGPT/ALT 18 U/L (13-61)
[2018-08-06 11:36] VITALS: BP 139/52
--- NOTE | 2018-08-07 13:02 | PATH ---
Surgical Pathology Report Patient Name: BARNEY VEGA [facility]. Rec. #: [id number] /Age/Gender: 1945 (Age: 73) / F Account: [id number] Location: ASU-ENDOSCOPY Taken: 08/06/2018 Received: 08/06/2018 Reported: 08/07/2018 Physicians: Loki Matute D.O. Specimen(s) Received BX CECAL POLYP Clinical History Family history of malignancy Postoperative diagnosis: Colon polyp, diverticulosis Final Diagnosis CECUM, POLYP, BIOPSY: POLYPOID COLONIC MUCOSA WITH SMALL LYMPHOID AGGREGATE AND SUPERFICIAL HYPERPLASTIC FEATURES. Electronically Signed Rubina Barone M.D. Gross Description Received in formalin, labeled "biopsy polyp cecum" is a cabrera, irregular portion of soft tissue measuring 0.3 cm. in greatest dimension. The specimen is submitted in toto in one cassette. /08/06/201808/06/2018
== END 2018-08-06 10:52 | disposition home or self-care (01) ==
LOC: JASU-ENDO 08:07
PROVIDERS: ATTEND Internal Medicine Gastroenterology
PROC: 0DBH8ZX Excision of Cecum, Via Natural or Artificial Opening Endoscopic, Diagnostic (ICD-10-PCS; principal; 2018-08-06 09:45)
DX: Z12.11 Encounter for screening for malignant neoplasm of colon (principal); K57.30 Diverticulosis of large intestine without perforation or abscess without bleeding; D12.0 Benign neoplasm of cecum; K64.4 Residual hemorrhoidal skin tags
CPT/HCPCS: 36415; 80048; 80076; 82962; 85025; 88305-TC

== ENCOUNTER 2019-05-27 12:43 | Emergency (ER) | payer OTHER ==
[2019-05-27 12:49] VITALS: BP 109/50; PULSE 64; TEMP 98; BMI 26.2
--- NOTE | 2019-05-27 13:13 | PDOC ---
History of Present Illness - General Chief Complaint: Rash Stated Complaint: BODY RASH Time Seen by Provider: 05/27/19 12:51 - History of Present Illness Initial Comments: 05/27/19 13:10 CHIEF COMPLAINT: pruritis HISTORY OF PRESENT ILLNESS: 74 yo F with hx of HTN, HLD, CAD, IDDM, CKD presents to fast track with itching. Patient reports that she has had unbearable itching for 3 weeks, to the point where she has been causing herself bruising with scratching. She reports the itching to her back is the worst and she has to scratch her back "like a pig" against a wall in order not to cause herself nail valera from scratching. No recent travel or sick contacts. PAST MEDICAL HISTORY: HTN, HLD, CAD, IDDM, CKD FAMILY HISTORY: Denies SOCIAL HISTORY: Denies tobacco, alcohol, illicit drug use. SURGICAL HISTORY: Denies ALLERGIES: No known drug allergies REVIEW OF SYSTEMS General/Constitutional: Denies fever or chills. Denies weakness, weight change. HEENT: Denies change in vision. Denies ear pain or discharge. Denies sore throat. Cardiovascular: Denies chest pain or shortness of breath. Respiratory: Denies cough, wheezing, or hemoptysis. Gastrointestinal: Denies nausea, vomiting, diarrhea or constipation. Denies rectal bleeding. Genitourinary: Denies dysuria, frequency, or change in urination. Musculoskeletal: Denies joint or muscle swelling or pain. Denies neck or back pain. Skin: Generalized itching. Neurologic: Denies headache, vertigo, loss of consciousness, or loss of sensation. Psychiatric: Denies depression or anxiety. PHYSICAL EXAM General Appearance: Well-appearing, appropriately dressed. No apparent distress , no intoxication. HEENT: EOMI, PERRLA, normal ENT inspection, normal voice, TMs normal, pharynx normal. No conjunctival pallor. No photophobia, scleral icterus. Neck: Supple. Trachea midline. No tenderness, rigidity, carotid bruit, stridor , lymphadenopathy, or thyromegaly. Respiratory/Chest: Lungs CTAB. No shortness of breath, chest tenderness, respiratory distress, accessory muscle use. No crackles, rales, rhonchi, stridor , wheezing, dullness Cardiovascular: RRR. S1, S2. No JVD, murmur, bradycardia, tachycardia. Vascular Pulses: Dorsalis-Pedis (R): 2+, Dorsalis-Pedis (L): 2+ Gastrointestinal/Abdominal: Normal bowel sounds. Abdomen soft, non-distended. No tenderness or rebound tenderness. No organomegaly, pulsatile mass, guarding , hernia, hepatomegaly, splenomegaly. Lymphatic: No adenopathy, tenderness. Musculoskeletal/Extremities: Normal inspection. FROM of all extremities, normal capillary refill. Pelvis Stable. No CVA tenderness. No tenderness to extremities, pedal edema, swelling, erythema or deformity. Integumentary: Multiple areas of purpura to b/l arms. No urticaria to skin. Neurologic: hat body sorter II-XII intact. Fully oriented, alert. Appropriate mood/affect. Motor strength 5/5. No appreciable EOM palsy, facial droop or sensory deficit. Past History - Past Medical History Allergies/Adverse Reactions: Allergies Allergy/AdvReac Type Severity Reaction Status Date / Time No Known Drug Allergies Allergy Verified 05/27/19 12:49 Home Medications: Ambulatory Orders Atorvastatin Ca [Lipitor] 40 mg PO HS #30 tablet 04/29/14 Ferrous Sulfate [Feosol] 1 tab PO DAILY #30 ud 04/29/14 Metoprolol Succinate [Toprol XL -] 50 mg PO DAILY #30 tab.sr.24h 04/29/14 Furosemide [Lasix -] 40 mg PO DAILY 06/12/14 Aspirin [ASA -] 81 mg PO DAILY 04/05/16 Calcium Carbonate 650 mg PO BID #60 tablet 08/11/17 Insulin Lispro [Humalog] 14 unit SQ ACDIN 08/11/17 Insulin Lispro [Humalog] 16 unit SQ ACBK 08/11/17 Meloxicam 15 mg PO DAILY 04/15/18 Nateglinide [Starlix (Nf) -] 120 mg PO TID 04/15/18 Sertraline HCl [Zoloft -] 50 mg PO DAILY 04/15/18 Sitagliptin Phosphate [Januvia] 50 mg PO DAILY 04/15/18 Cyclobenzaprine HCl [Flexeril -] 5 mg PO TID PRN #21 tablet 04/18/18 Hydroxyzine HCl 25 mg PO TID #14 tablet 05/27/19 Anemia: Yes Asthma: No Cancer: No Cardiac Disorders: Yes (HX.SOB,CARDIAC CATHERIZATION) CVA: No COPD: No CHF: No DVT: No Dementia: No Diabetes: Yes GI Disorders: Yes (GASTRIC BYPASS) Disorders: No HTN: Yes Hypercholesterolemia: Yes Liver Disease: No Seizures: No Thyroid Disease: No - Surgical History Abdominal Surgery: Yes (GASTRIC BYPASS) Appendectomy: No Cardiac Surgery: Yes (cardiac cath) Cholecystectomy: Yes Lung Surgery: No Neurologic Surgery: No Orthopedic Surgery: Yes (femur fx repair/rt knee replacement) - Psycho Social/Smoking Cessation Hx Smoking Status: No Smoking History: Never smoked Have you smoked in the past 12 months: No Number of Cigarettes Smoked Daily: 0 Hx Alcohol Use: No Drug/Substance Use Hx: No Substance Use Type: None Hx Substance Use Treatment: No *Physical Exam - Vital Signs Last Vital Signs Temp Pulse Resp BP Pulse Ox 98 F 64 18 109/50 L 99 05/27/19 12:45 05/27/19 12:45 05/27/19 12:45 05/27/19 12:45 05/27/19 12:45 ED Treatment Course - LABORATORY CBC & Chemistry Diagram: 05/27/19 13:13 05/27/19 13:13 Medical Decision Making - Medical Decision Making 05/27/19 13:24 74 yo F with hx of HTN, HLD, CAD, IDDM, CKD presents to fast track with itching. Patient with hx of CKD. Differential includes drug inducted pruritis, dermatitis, uremic pruritis, TTP. -labs 05/27/19 14:08 patient creatinine 2.3, at baseline. -hydroxyzine Advised patient to take medication as prescribed and follow up with PCP and dermatology within the next week. Advised patient of signs and symptoms for return to ED. Patient verbalized understanding and agrees to plan. Discharge - Discharge Information Problems reviewed: Yes Clinical Impression/Diagnosis: Pruritus Condition: Stable Disposition: HOME - Admission No - Additional Discharge Information Prescriptions: Hydroxyzine HCl 25 mg PO TID #14 tablet - Follow up/Referral Referrals: Nydia Peres MD [Primary Care Provider] - - Patient Discharge Instructions Patient Printed Discharge Instructions: DI for Itching - Post Discharge Activity
[2019-05-27 13:37] LABS: BASO % 1.2 % (0-2.0); EOS % 10.3 % (0-4.5); HEMATOCRIT 31.4 % (32.4-45.2); HEMOGLOBIN 10.1 GM/dL (10.7-15.3); LYMPH % 23.3 % (8-40); MCH 29.2 pg (25.7-33.7); MCHC 32.2 g/dl (32.0-36.0); MEAN CELL VOLUME 90.7 fl (80-96); MEAN PLT VOLUME 7.9 fl (7.5-11.1); MONO % 7.1 % (3.8-10.2); NEUT % 58.1 % (42.8-82.8); PLATELET COUNT 267 K/MM3 (134-434); RBC 3.46 M/mm3 (3.60-5.2); RDW 13.9 % (11.6-15.6)
[2019-05-27 14:02] LABS: ALBUMIN 3.8 g/dl (3.4-5.0); BILIRUBIN,TOTAL 0.3 mg/dL (0.2-1); BLOOD UREA NITROGEN 59.4 mg/dL (7-18); CALCIUM 8.4 mg/dL (8.5-10.1); CREATININE 2.3 mg/dL (0.55-1.3); POTASSIUM 4.1 mmol/L (3.5-5.1); TOT PROT 7.4 g/dl (6.4-8.2)
== END 2019-05-27 14:53 | disposition home or self-care (01) ==
LOC: JERFT 12:43
DX: L29.8 Other pruritus (principal); D69.2 Other nonthrombocytopenic purpura; I25.10 Atherosclerotic heart disease of native coronary artery without angina pectoris; Z98.61 Coronary angioplasty status; I13.10 Hypertensive heart and chronic kidney disease without heart failure, with stage 1 through stage 4 chronic kidney disease, or unspecified chronic kidney disease; N18.9 Chronic kidney disease, unspecified; E11.22 Type 2 diabetes mellitus with diabetic chronic kidney disease; Z79.4 Long term (current) use of insulin; D64.9 Anemia, unspecified; E78.00 Pure hypercholesterolemia, unspecified; Z98.84 Bariatric surgery status; Z90.49 Acquired absence of other specified parts of digestive tract; Z96.651 Presence of right artificial knee joint
CPT/HCPCS: 36415; 80053; 85025; 99282-25

== ENCOUNTER 2019-08-12 17:43 | Emergency (ER) | payer OTHER ==
--- NOTE | 2019-08-12 18:22 | PDOC ---
Rapid Medical Evaluation Chief Complaint: Injury Time Seen by Provider: 08/12/19 18:19 Medical Evaluation: Allergies Allergy/AdvReac Type Severity Reaction Status Date / Time No Known Drug Allergies Allergy Verified 05/27/19 12:49 08/12/19 18:19 Pt c/o: mechanical fall and hit her head, no loc, on baby asa, unknown last tdap Pt on brief exam: lac to rt forehead with abrasion Pt ordered for: tdap, head and facial ct Pt to proceed to the ED Discharge Disposition - Diagnosis Facial laceration - Referrals - Patient Instructions - Post Discharge Activity
[2019-08-12] MEDS ORDERED: DIPHTH,PERTUSS(ACELL),TET 0.5 ML DISP.SYRIN IM ONE ×2 (18:23→21:43)
[2019-08-12 18:25] VITALS: BMI 25.6
--- NOTE | 2019-08-12 20:58 | PDOC ---
History of Present Illness - General Chief Complaint: Injury Stated Complaint: FALL Time Seen by Provider: 08/12/19 18:19 - History of Present Illness Initial Comments: Cori Meraz is a 74yo woman with a PMH of HTN, HLD, CAD, IDDM, CKD, vertigo, s /p gastric bypass who presents following a fall at home today. She states that she was walking down the hallway when her foot slipped, which she says happens often as she reports poor balance at baseline. Her , at bedside, confirms that she needs someone to help her walk. Ms Meraz says that she has a walker at home, but she was not using it this evening. She denies any lightheadedness, chest pain, difficulty breathing, focal weakness, numbness or other symptoms prior to the fall. She reports that she attempted to catch herself on the wall but instead struck her head on the wall. She landed on her buttocks on the ground. She denies any LOC but notes a forehead injury with "a lot of bleeding" at home. Past History - Past Medical History Allergies/Adverse Reactions: Allergies Allergy/AdvReac Type Severity Reaction Status Date / Time No Known Drug Allergies Allergy Verified 05/27/19 12:49 Home Medications: Ambulatory Orders Atorvastatin Ca [Lipitor] 40 mg PO HS #30 tablet 04/29/14 Ferrous Sulfate [Feosol] 1 tab PO DAILY #30 ud 04/29/14 Metoprolol Succinate [Toprol XL -] 50 mg PO DAILY #30 tab.sr.24h 04/29/14 Furosemide [Lasix -] 40 mg PO DAILY 06/12/14 Calcium Carbonate 650 mg PO BID #60 tablet 08/11/17 Insulin Lispro [Humalog] 14 unit SQ ACDIN 08/11/17 Insulin Lispro [Humalog] 16 unit SQ ACBK 08/11/17 Nateglinide [Starlix (Nf) -] 120 mg PO TID 04/15/18 Sertraline HCl [Zoloft -] 50 mg PO DAILY 04/15/18 Sitagliptin Phosphate [Januvia] 50 mg PO DAILY 04/15/18 Cyclobenzaprine HCl [Flexeril -] 5 mg PO TID PRN #21 tablet 04/18/18 Hydroxyzine HCl 25 mg PO TID #14 tablet 05/27/19 Anemia: Yes Asthma: No Cancer: No Cardiac Disorders: Yes (HX.SOB,CARDIAC CATHERIZATION) CVA: No COPD: No CHF: No DVT: No Dementia: No Diabetes: Yes GI Disorders: Yes (GASTRIC BYPASS) Disorders: No HTN: Yes Hypercholesterolemia: Yes Liver Disease: No Seizures: No Thyroid Disease: No - Surgical History Abdominal Surgery: Yes (GASTRIC BYPASS) Appendectomy: No Cardiac Surgery: Yes (cardiac cath) Cholecystectomy: Yes Lung Surgery: No Neurologic Surgery: No Orthopedic Surgery: Yes (femur fx repair/rt knee replacement) - Immunization History Immunization Up to Date: Yes - Psycho Social/Smoking Cessation Hx Smoking Status: No Smoking History: Never smoked Have you smoked in the past 12 months: No Number of Cigarettes Smoked Daily: 0 Information on smoking cessation initiated: No Hx Alcohol Use: No Drug/Substance Use Hx: No Substance Use Type: None Hx Substance Use Treatment: No Review of Systems - Review of Systems Comments:: General: No fevers, no chills, no weight or appetite change, no malaise HEENT: No changes in vision, no changes in hearing, no congestion, no sore throat CV: No chest pain, no palpitations, no LE edema Pulm: No SOB, no cough, no wheezing GI: No nausea or vomiting, no change in bowel habits, no melena : No frequency, no urgency, no dysuria Musc: No back pain, no joint swelling. See HPI Skin: No rash, no lesions, no erythema Endo: No excessive thirst, no heat/cold intolerance Heme: No unusual bruising or bleeding, no swollen glands Neuro: No syncope, no numbness/tingling, no focal weakness Vasc: No claudication Psych: No recent change in mood, no SI or HI *Physical Exam - Vital Signs Last Vital Signs Temp Pulse Resp BP Pulse Ox 97.8 F 58 L 16 162/59 L 99 08/12/19 18:18 08/12/19 18:18 08/12/19 18:18 08/12/19 18:18 08/12/19 18:18 - Physical Exam General: Comfortable, no acute distress HEENT: Right lateral forehead with 5cm, L-shaped full thickness laceration and 2cm superficial laceration lateral to R eye. No active bleeding, no apparent foreign material. No underlying hematoma or significant swelling. No visible trauma to posterior head, no neck tenderness. PERRL, EOMI, MMM, voice normal, normal neck ROM. Cards: RRR, no murmur appreciated Pulm: Comfortable on room air, clear to auscultation bilaterally Abd: Soft, nontender, nondistended Back: No deformity, no erythema, no abrasion, no ecchymosis Ext: Atraumatic. No LE edema. ROM intact. Strength equal bilaterally Vasc: Extremities WWP. Skin: Normal color, no rashes or lesions Neuro: A&Ox3, CN grossly intact, normal speech, motor/sensory grossly intact and symmetric Psych: Mood appropriate to situation Procedures - Laceration/Wound Repair Right Face Wound Length: 2.6 to 5.0 cm Wound Explored: clean Wound's Depth, Shape: into muscle, flap Irrigated w/ Saline: Yes Betadine Prep: No Anesthesia: 1% Lidocaine Amount of Anesthetic (ccs): 5 Wound Debrided: None Wound Repaired With: Sutures Suture Size/Type: 5:0, proline Number of Sutures: 11 Layer Closure: No Sterile Dressing Applied: No (Over hairline) Right Eye Wound Length: to 2.5 cm Wound Explored: clean Wound's Depth, Shape: superficial, linear Irrigated w/ Saline: Yes Betadine Prep: No Anesthesia: 1% Lidocaine Wound Debrided: None Wound Repaired With: Sutures Suture Size/Type: 5:0, proline Number of Sutures: 7 Layer Closure: No Medical Decision Making - Medical Decision Making 08/12/19 20:58 Cori Meraz is a 74yo woman with a PMH of HTN, HLD, CAD, IDDM, CKD, vertigo, s /p gastric bypass who presents following an apparently mechanical fall at home today. She denies any LOC but has lacerations to the forehead and lateral right face. - CT head, CT facial bones completed prior to being seen. No acute injury - Tetanus ordered - 2x facial lacerations will require repair. To be cleaned and sutured. 08/12/19 21:59 - Lateration cleaned and sutured at bedside. Wound was well approximated; no complications were noted - Home wound care discussed in detail with Ms Meraz and her . Both state understanding and agreement with the instructions. Will return Sunday or Sunday for suture removal - Tetanus given - Pt declined pain medication - Will d/c home Discussed with Dr Jesus Rutherford PGY2 Discharge - Discharge Information Problems reviewed: Yes Clinical Impression/Diagnosis: Facial laceration Qualifiers: Encounter type: initial encounter Qualified Code(s): S01.81XA - Laceration without foreign body of other part of head, initial encounter Condition: Stable Disposition: HOME - Admission No - Follow up/Referral Referrals: Nydia Peres MD [Primary Care Provider] - - Patient Discharge Instructions Patient Printed Discharge Instructions: DI for Laceration Repair of the Scalp Additional Instructions: Discharge Instructions: You were seen in the emergency department with two lacerations to your face and forehead The lacerations were repaired with a total of 18 stitches (11 over the forehead, 7 next to the eye) Home Care: - You should avoid getting the wound wet for at least 24 hours. After 24hrs, you may wash your face and shower normally. It is OK to use a plain soap and allow water to run over the wound. Do not scrub at the wound, and pat dry after washing. Do not rub with a towel. - You may leave the wound open to air. - Do not apply any lotions, ointments, creams or other topical medications to the wound - Some redness and swelling is expected after an injury. You may see a small amount of bleeding or pinkish drainage on the bandage when you remove it. This is normal. - You may use 650-1000mg acetaminophen (Tylenol) every 6-8 hours as needed for pain. Follow Up: - You will need to be seen in 5-7 days for suture removal. You can return to the emergency room or see your regular doctor. - Seek immediate medical care if your wound becomes significantly more painful, swollen, red, you have a large amount of thick drainage, you have fevers to 101F or higher, or you have red streaking from the wound. - Post Discharge Activity
--- NOTE | 2019-08-12 22:26 | PDOC ---
Documentation entered by Staci Crawford SCRIBE, acting as scribe for Chelo Lee MD. Chelo Lee MD: This documentation has been prepared by the Yvette bonds Nirvannie, SCRIBE, under my direction and personally reviewed by me in its entirety. I confirm that the documentation accurately reflects all work, treatment, procedures, and medical decision making performed by me. Attending Attestation - Resident Resident Name: Cherise Rutherford - ED Attending Attestation I have performed the following: I have examined & evaluated the patient, The case was reviewed & discussed with the resident, I agree w/resident's findings & plan, Exceptions are as noted - HPI HPI: 08/12/19 21:34 The patient is a year old female, with a significant past medical history of HTN , HLD, CAD, IDDM, CKD, who presents to the emergency department s/p fall with facial laceration. Patient notes hitting her head. She is unaware of her last tetanus. She denies recent chest pain or shortness of breath. Allergies: NKDA Primary Care Physician: Dr. Peres - Physicial Exam PE: 08/12/19 22:20 74-year-old female had a mechanical fall and fell against the wall sustaining to forehead lacerations on her right side. No loss of consciousness Head there is a full-thickness L-shaped 5 cm laceration and also superficial 2 cm laceration adjacent to her lateral right eye neck no cervical vertebral tenderness lungs cta b/l cvs abd nontender extremities no deformities skin no laceration neuro axox3,ambulatory, no gross focal neuro deficits - Medical Decision Making 08/12/19 22:25 CAT scan of the head did not show any acute intracranial pathology, no skull fracture no bleed CAT scan of facial bones was negative for any fractures Patient received updated tetanus Both her lacerations were cleaned and sutured Impression closed head injury, lacerations Plan discharge home
[2019-08-12 22:56] VITALS: BP 143/59; PULSE 62; TEMP 98.9
== END 2019-08-12 22:56 | disposition home or self-care (01) ==
LOC: JER 17:43
PROC: 3E0234Z Introduction of Serum, Toxoid and Vaccine into Muscle, Percutaneous Approach (ICD-10-PCS; principal; 2019-08-12)
PROC: 0JQ10ZZ Repair Face Subcutaneous Tissue and Fascia, Open Approach (ICD-10-PCS; 2019-08-12)
DX: S01.81XA Laceration without foreign body of other part of head, initial encounter (principal); W01.198A Fall on same level from slipping, tripping and stumbling with subsequent striking against other object, initial encounter; Y93.01 Activity, walking, marching and hiking; Y92.038 Other place in apartment as the place of occurrence of the external cause; Y99.8 Other external cause status; I25.10 Atherosclerotic heart disease of native coronary artery without angina pectoris; Z98.61 Coronary angioplasty status; I13.10 Hypertensive heart and chronic kidney disease without heart failure, with stage 1 through stage 4 chronic kidney disease, or unspecified chronic kidney disease; N18.9 Chronic kidney disease, unspecified; E11.22 Type 2 diabetes mellitus with diabetic chronic kidney disease; Z79.4 Long term (current) use of insulin; E78.00 Pure hypercholesterolemia, unspecified; D64.9 Anemia, unspecified; Z96.651 Presence of right artificial knee joint; Z98.84 Bariatric surgery status
CPT/HCPCS: 11721; 12014; 70450-TC; 70486-TC; 90471; 90715; 99282-25; G0463-25

== ENCOUNTER 2019-08-18 09:20 | Emergency (ER) | payer OTHER ==
[2019-08-18 09:42] VITALS: BP 130/53; PULSE 57; TEMP 97.7; BMI 25.6
--- NOTE | 2019-08-18 10:13 | PDOC ---
Suture Removal/Wound Check HPI - History of Present Illness Chief Complaint: Suture/Staple Removal(Here) Stated Complaint: STITCHES REMOVAL Time Seen by Provider: 08/18/19 09:49 History Source: Yes: Patient Exam Limitations: Yes: No Limitations Past History - Past Medical History Allergies/Adverse Reactions: Allergies Allergy/AdvReac Type Severity Reaction Status Date / Time No Known Drug Allergies Allergy Verified 08/18/19 09:38 Home Medications: Ambulatory Orders Atorvastatin Ca [Lipitor] 40 mg PO HS #30 tablet 04/29/14 Ferrous Sulfate [Feosol] 1 tab PO DAILY #30 ud 04/29/14 Metoprolol Succinate [Toprol XL -] 50 mg PO DAILY #30 tab.sr.24h 04/29/14 Furosemide [Lasix -] 40 mg PO DAILY 06/12/14 Calcium Carbonate 650 mg PO BID #60 tablet 08/11/17 Insulin Lispro [Humalog] 14 unit SQ ACDIN 08/11/17 Insulin Lispro [Humalog] 16 unit SQ ACBK 08/11/17 Nateglinide [Starlix (Nf) -] 120 mg PO TID 04/15/18 Sertraline HCl [Zoloft -] 50 mg PO DAILY 04/15/18 Sitagliptin Phosphate [Januvia] 50 mg PO DAILY 04/15/18 Cyclobenzaprine HCl [Flexeril -] 5 mg PO TID PRN #21 tablet 04/18/18 Hydroxyzine HCl 25 mg PO TID #14 tablet 05/27/19 Anemia: Yes Asthma: No Cancer: No Cardiac Disorders: Yes (HX.SOB,CARDIAC CATHERIZATION) CVA: No COPD: No CHF: No DVT: No Dementia: No Diabetes: Yes GI Disorders: Yes (GASTRIC BYPASS) Disorders: No HTN: Yes Hypercholesterolemia: Yes Liver Disease: No Seizures: No Thyroid Disease: No - Surgical History Abdominal Surgery: Yes (GASTRIC BYPASS) Appendectomy: No Cardiac Surgery: Yes (cardiac cath) Cholecystectomy: Yes Lung Surgery: No Neurologic Surgery: No Orthopedic Surgery: Yes (femur fx repair/rt knee replacement) - Immunization History Immunization Up to Date: Yes - Psycho Social/Smoking Cessation Hx Smoking Status: No Smoking History: Never smoked Have you smoked in the past 12 months: No Number of Cigarettes Smoked Daily: 0 Hx Alcohol Use: No Drug/Substance Use Hx: No Substance Use Type: None Hx Substance Use Treatment: No Suture Removal/Wound Check PE - Physical Exam Laceration/Wound Check Symptoms: reports: None, Improved, Resolved. denies: Pain, Fever, Redness, Discharge, Bleeding Location of Laceration/Wound: right: Head (healed lac along R lateral eyebrow and along R frontal scalp) *Physical Exam - Vital Signs Last Vital Signs Temp Pulse Resp BP Pulse Ox 97.7 F 57 L 18 130/53 L 99 08/18/19 09:39 08/18/19 09:39 08/18/19 09:39 08/18/19 09:39 08/18/19 09:39 Medical Decision Making - Medical Decision Making 74 y/o F presents for suture removal s/p lac repair on 08/12. Denies fever, redness, discharge. 18 sutures removed stable for dc 08/18/19 10:12 Discharge - Discharge Information Problems reviewed: Yes Clinical Impression/Diagnosis: Visit for suture removal Condition: Stable Disposition: HOME - Admission No - Additional Discharge Information Prescription Drug Monitoring Program (I-STOP) results: I-STOP not reviewed - Follow up/Referral - Patient Discharge Instructions Patient Printed Discharge Instructions: DI for Suture Removal - Post Discharge Activity
== END 2019-08-18 10:14 | disposition home or self-care (01) ==
LOC: JER 09:20
DX: Z48.817 Encounter for surgical aftercare following surgery on the skin and subcutaneous tissue (principal); Z48.02 Encounter for removal of sutures; I25.10 Atherosclerotic heart disease of native coronary artery without angina pectoris; I10 Essential (primary) hypertension; E11.9 Type 2 diabetes mellitus without complications; Z79.4 Long term (current) use of insulin; D64.9 Anemia, unspecified; E78.00 Pure hypercholesterolemia, unspecified; Z98.84 Bariatric surgery status; Z96.651 Presence of right artificial knee joint
CPT/HCPCS: 99281-25

== ENCOUNTER 2021-02-23 20:01 | Emergency (ER) | payer OTHER ==
[2021-02-23 20:07] VITALS: TEMP 98; BMI 25.4
[2021-02-23] MEDS ORDERED: DIPHTH,PERTUSS(ACELL),TET 0.5 ML DISP.SYRIN IM ONE ×2 (21:41→21:53)
[2021-02-24 01:53] VITALS: BP 152/73; PULSE 79
== END 2021-02-24 01:54 | disposition home or self-care (01) ==
LOC: JER 20:01
PROC: 3E0234Z Introduction of Serum, Toxoid and Vaccine into Muscle, Percutaneous Approach (ICD-10-PCS; principal; 2021-02-23)
DX: M25.561 Pain in right knee (principal); S80.211A Abrasion, right knee, initial encounter; W18.39XA Other fall on same level, initial encounter; Y92.019 Unspecified place in single-family (private) house as the place of occurrence of the external cause; Y93.01 Activity, walking, marching and hiking
CPT/HCPCS: 73502-TC-RT-FY; 73552-TC-RT-FY; 73562-TC-RT-FY; 73590-TC-RT-FY; 73700-TC-RT; 90471; 90715; 99285-25

== ENCOUNTER 2021-03-16 18:10 | Inpatient (IN) | payer OTHER ==
[2021-03-16 12:00] VITALS: BMI 25.6
[~2021-03-16 18:10] MED LIST changes: +ACETAMINOPHEN 500 MG TABLET (FP) PO PRN; +GLYCOPYRROLATE 0.2 MG/1 ML VIAL IVPB ONE; +IBUPROFEN 400 MG TABLET (FP) PO PRN; +ONDANSETRON 4 MG/2 ML VIAL IVPUSH PRN; -TOBRA 0.3%/DEXAMETH 0.1% OPHTHALMIC SUSP 2.5 ML BTL OD ONE; +ceFAZolin SODIUM 1 GM VIAL IVPB ONE; +hydrALAZINE HCL 20 MG/ML VIAL IVPUSH ONE; +oxyCODONE HCL 5 MG TABLET PO PRN
[2021-03-16] MEDS: LACTATED RINGERS SOLUTION 1,000 ML IV SCH ×2 (19:01→21:03)
[2021-03-16] MEDS ORDERED: DEXTROSE 5%-WATER - 50 ML IVPB ONE (19:56)
[2021-03-16] MEDS ORDERED: ceFAZolin SODIUM 1 GM VIAL ONE (19:56)
[2021-03-16] MEDS ORDERED: CEFAZOLIN 1 GM/D5W 1 GM/50 ML BAG IVPB SCH (20:00)
[2021-03-16] MEDS: CEFAZOLIN 1 GM in DEXTROSE 5%-WATER - 1 GM/50 ML IVPB IVPB SCH (20:08)
[2021-03-16] MEDS ORDERED: INSULIN (NOVOLOG) ASPART 100 UNITS/ML 10ML VIAL ONE (22:00)
[2021-03-16] MEDS: ATORVASTATIN CA 20 MG TABLET (FP) PO SCH (22:06)
[2021-03-16] MEDS: LOSARTAN POTASSIUM 25 MG TABLET PO SCH (22:06)
[2021-03-16] MEDS: INSULIN SLIDING SCALE (NOVOLOG) 1 VIAL SQ SCH (22:09)
[2021-03-17] MEDS ORDERED: ceFAZolin SODIUM 1 GM VIAL ONE ×3 (03:10→21:00)
[2021-03-17] MEDS ORDERED: DEXTROSE 5%-WATER - 50 ML IVPB ONE ×3 (03:10→21:00)
[2021-03-17] MEDS: CEFAZOLIN 1 GM in DEXTROSE 5%-WATER - 1 GM/50 ML IVPB IVPB SCH ×3 (04:19→21:00)
[2021-03-17] MEDS: sitaGLIPtin PHOSPHATE 50 MG TABLET PO SCH (06:22)
[2021-03-17] MEDS: INSULIN SLIDING SCALE (NOVOLOG) 1 VIAL SQ SCH ×4 (06:22→21:37)
[2021-03-17 09:41] LABS: BASO % 0.6 % (0-2.0); EOS % 1.3 % (0-4.5); HEMATOCRIT 27.5 % (32.4-45.2); HEMOGLOBIN 9.3 GM/dL (10.7-15.3); MCH 30.2 pg (25.7-33.7); MCHC 33.7 g/dl (32.0-36.0); MEAN CELL VOLUME 89.6 fl (80-96); MEAN PLT VOLUME 7.3 fl (7.5-11.1); NEUT % 68.1 % (42.8-82.8); PLATELET COUNT 264 10^3/uL (134-434); RBC 3.07 M/mm3 (3.60-5.2); RDW 13.8 % (11.6-15.6); WHITE BLOOD COUNT 7.8 K/mm3 (4.0-10.0)
[2021-03-17 10:16] LABS: CALCIUM 9.2 mg/dL (8.5-10.1)
[2021-03-17 10:17] LABS: ALBUMIN 3.4 g/dl (3.4-5.0)
[2021-03-17 10:21] LABS: BILIRUBIN,TOTAL 0.5 mg/dL (0.2-1)
[2021-03-17] MEDS: SERTRALINE HCL 50 MG TABLET (FP) PO SCH (10:32)
[2021-03-17] MEDS: CALCITRIOL 0.25 MCG CAPSULE (FP) PO SCH (10:32)
[2021-03-17] MEDS: SODIUM BICARBONATE 650 MG TABLET PO SCH (10:32)
[2021-03-17] MEDS: VITAMIN B COMPLEX W/C COMBO TABLET (FP) PO SCH (10:32)
[2021-03-17] MEDS: FUROSEMIDE 40 MG TABLET (FP) PO SCH (10:32)
[2021-03-17] MEDS: FERROUS SO4 325 MG TABLET (FP) PO SCH (10:32)
[2021-03-17] MEDS: CYANOCOBALAMIN 1,000 MCG TABLET (FP) PO SCH (10:32)
[2021-03-17] MEDS: LOSARTAN POTASSIUM 25 MG TABLET PO SCH (10:32)
[2021-03-17 10:34] LABS: ERYTHROCYTE SEDIMENTATION RATE 63 mm/hr (0-30)
[2021-03-17] MEDS: LACTATED RINGERS SOLUTION 1,000 ML IV SCH (20:36)
[2021-03-17] MEDS: ATORVASTATIN CA 20 MG TABLET (FP) PO SCH (21:00)
[2021-03-17] MEDS: HEPARIN NA (PORCINE) 5,000 UNITS/ML 1ML VIAL SQ SCH (21:00)
[2021-03-18] MEDS ORDERED: DEXTROSE 5%-WATER - 50 ML IVPB ONE ×2 (03:46→12:00)
[2021-03-18] MEDS ORDERED: ceFAZolin SODIUM 1 GM VIAL ONE ×2 (03:46→11:59)
[2021-03-18] MEDS: CEFAZOLIN 1 GM in DEXTROSE 5%-WATER - 1 GM/50 ML IVPB IVPB SCH ×2 (03:49→12:17)
[2021-03-18] MEDS: sitaGLIPtin PHOSPHATE 50 MG TABLET PO SCH (06:14)
[2021-03-18] MEDS: INSULIN SLIDING SCALE (NOVOLOG) 1 VIAL SQ SCH ×2 (06:14→12:30)
[2021-03-18 07:55] VITALS: BP 184/69; PULSE 54; TEMP 98.4
[2021-03-18 09:26] LABS: HEMATOCRIT 26.4 % (32.4-45.2); HEMOGLOBIN 8.9 GM/dL (10.7-15.3); MCH 30.3 pg (25.7-33.7); MCHC 33.7 g/dl (32.0-36.0); MEAN CELL VOLUME 89.8 fl (80-96); MEAN PLT VOLUME 7.4 fl (7.5-11.1); PLATELET COUNT 238 10^3/uL (134-434); RBC 2.94 M/mm3 (3.60-5.2); RDW 13.4 % (11.6-15.6); WHITE BLOOD COUNT 6.9 K/mm3 (4.0-10.0)
[2021-03-18] MEDS ORDERED: LOSARTAN POTASSIUM 25 MG TABLET PO ONE (09:52)
[2021-03-18] MEDS ORDERED: LOSARTAN POTASSIUM 50 MG TABLET PO SCH (10:30)
[2021-03-18] MEDS ORDERED: PT OWN MED DRAWER 7, Y5N ONE ×2 (11:59→12:20)
[2021-03-18] MEDS: SODIUM BICARBONATE 650 MG TABLET PO SCH (12:17)
[2021-03-18] MEDS: SERTRALINE HCL 50 MG TABLET (FP) PO SCH (12:17)
[2021-03-18] MEDS: FUROSEMIDE 40 MG TABLET (FP) PO SCH (12:17)
[2021-03-18] MEDS: FERROUS SO4 325 MG TABLET (FP) PO SCH (12:17)
[2021-03-18] MEDS: HEPARIN NA (PORCINE) 5,000 UNITS/ML 1ML VIAL SQ SCH (12:18)
[2021-03-18] MEDS: CALCITRIOL 0.25 MCG CAPSULE (FP) PO SCH (12:21)
[2021-03-18] MEDS: CYANOCOBALAMIN 1,000 MCG TABLET (FP) PO SCH (12:21)
[2021-03-18] MEDS: VITAMIN B COMPLEX W/C COMBO TABLET (FP) PO SCH (12:22)
[2021-03-19] MEDS ORDERED: LOSARTAN POTASSIUM 25 MG TABLET PO SCH (08:00)
== END 2021-03-18 15:28 | disposition home health service (06) | DRG 572 ==
LOC: JASUSAT 18:10 → J6S 18:10 → JASUSAT 18:11
PROVIDERS: ADMIT Internal Medicine; ATTEND Plastic Surgery
PROC: 0SCC0ZZ Extirpation of Matter from Right Knee Joint, Open Approach (ICD-10-PCS; 2021-03-16)
PROC: 3E10X8Z Irrigation of Skin and Mucous Membranes using Irrigating Substance (ICD-10-PCS; 2021-03-16)
PROC: 2W1QX6Z Compression of Right Lower Leg using Pressure Dressing (ICD-10-PCS; 2021-03-16)
PROC: 0JBN0ZZ Excision of Right Lower Leg Subcutaneous Tissue and Fascia, Open Approach (ICD-10-PCS; principal; 2021-03-16 16:00)
DX: S80.11XA Contusion of right lower leg, initial encounter (principal); S80.01XA Contusion of right knee, initial encounter; E11.9 Type 2 diabetes mellitus without complications; I48.91 Unspecified atrial fibrillation; Z96.659 Presence of unspecified artificial knee joint; S81.801A Unspecified open wound, right lower leg, initial encounter; I12.9 Hypertensive chronic kidney disease with stage 1 through stage 4 chronic kidney disease, or unspecified chronic kidney disease; E11.22 Type 2 diabetes mellitus with diabetic chronic kidney disease; N18.9 Chronic kidney disease, unspecified; D64.9 Anemia, unspecified; W18.39XA Other fall on same level, initial encounter; Y92.091 Bathroom in other non-institutional residence as the place of occurrence of the external cause
CPT/HCPCS: 36415; 80048; 80053; 82962; 85025; 85027; 85651; 87070; 87186; 87205; 88304-TC; 94760; 97116-GP; 97162-GP; C9803; J1644; U0003; U0005

== ENCOUNTER 2021-04-01 20:40 | Observation (INO) | payer OTHER ==
[2021-04-01] MEDS ORDERED: MECLIZINE HCL 25 MG TABLET (FP) PO ONE (21:29)
[2021-04-01] MEDS ORDERED: ACETAMINOPHEN 500 MG TABLET (FP) PO ONE (21:30)
[2021-04-01] MEDS ORDERED: ACETAMINOPHEN 325 MG TABLET (FP) ONE (21:46)
[2021-04-01] MEDS ORDERED: MECLIZINE HCL 25 MG TABLET (FP) ONE (21:46)
[2021-04-01 21:53] LABS: EOS % 14.8 % (0-4.5); HEMATOCRIT 30.4 % (32.4-45.2); HEMOGLOBIN 10.3 GM/dL (10.7-15.3); LYMPH % 19.4 % (8-40); MCHC 33.7 g/dl (32.0-36.0); MEAN CELL VOLUME 89.1 fl (80-96); MEAN PLT VOLUME 7.1 fl (7.5-11.1); MONO % 9.1 % (3.8-10.2); NEUT % 53.7 % (42.8-82.8); PLATELET COUNT 286 10^3/uL (134-434); RBC 3.42 M/mm3 (3.60-5.2); RDW 13.7 % (11.6-15.6)
[2021-04-01 22:11] LABS: CHLORIDE 102 mmol/L (98-107); SODIUM 138 mmol/L (136-145)
[2021-04-01 22:13] LABS: ALBUMIN 3.8 g/dl (3.4-5.0); ANION GAP 8 MMOL/L (8-16); BLOOD UREA NITROGEN 34.4 mg/dL (7-18); CALCIUM 10.4 mg/dL (8.5-10.1); CO2 27 mmol/L (21-32)
[2021-04-01 22:14] LABS: GLUCOSE,RANDOM 119 mg/dL (74-106)
[2021-04-01 22:16] LABS: SGPT/ALT 30 U/L (13-61)
[2021-04-01 22:17] LABS: SGOT/AST 50 U/L (15-37)
[2021-04-01 22:18] LABS: BILIRUBIN,TOTAL 0.4 mg/dL (0.2-1)
[2021-04-01 22:19] LABS: ALK PHOS 219 U/L (45-117)
[2021-04-02] MEDS ORDERED: oxyCODONE HCL 5 MG TABLET PO PRN ×2 (04:20→06:02)
[2021-04-02] MEDS ORDERED: ACETAMINOPHEN 500 MG TABLET (FP) PO PRN ×2 (04:20→06:01)
[2021-04-02] MEDS ORDERED: sitaGLIPtin PHOSPHATE 50 MG TABLET ONE (05:40)
[2021-04-02] MEDS ORDERED: NATEGLINIDE 120 MG PO SCH (06:00)
[2021-04-02] MEDS: INSULIN SLIDING SCALE (NOVOLOG) 1 VIAL SQ SCH ×4 (06:05→21:33)
[2021-04-02] MEDS ORDERED: ACETAMINOPHEN 325 MG TABLET (FP) PO PRN (06:18)
[2021-04-02] MEDS ORDERED: MECLIZINE HCL 25 MG TABLET (FP) PO PRN (06:27)
[2021-04-02] MEDS: sitaGLIPtin PHOSPHATE 50 MG TABLET PO SCH (06:56)
[2021-04-02] MEDS ORDERED: FUROSEMIDE 40 MG TABLET (FP) ONE (08:41)
[2021-04-02] MEDS ORDERED: LOSARTAN POTASSIUM 50 MG TABLET ONE (08:41)
[2021-04-02] MEDS ORDERED: FERROUS SO4 325 MG TABLET (FP) ONE (08:42)
[2021-04-02] MEDS ORDERED: PT OWN MED DRAWER 7, Y5N ONE (08:42)
[2021-04-02] MEDS ORDERED: SERTRALINE HCL 50 MG TABLET (FP) ONE (08:42)
[2021-04-02] MEDS: LOSARTAN POTASSIUM 50 MG TABLET PO SCH (09:05)
[2021-04-02] MEDS: FERROUS SO4 325 MG TABLET (FP) PO SCH (09:05)
[2021-04-02] MEDS: SERTRALINE HCL 50 MG TABLET (FP) PO SCH (09:06)
[2021-04-02] MEDS: FUROSEMIDE 40 MG TABLET (FP) PO SCH (09:06)
[2021-04-02] MEDS ORDERED: CALCIUM CARBONATE 650 MG TABLET PO SCH (10:00)
[2021-04-02] MEDS: VITAMIN B COMPLEX W/C COMBO TABLET (FP) PO SCH (10:20)
[2021-04-02] MEDS: CALCITRIOL 0.25 MCG CAPSULE (FP) PO SCH (10:20)
[2021-04-02] MEDS: CYANOCOBALAMIN 1,000 MCG TABLET (FP) PO SCH (10:20)
[2021-04-02] MEDS: SODIUM BICARBONATE 650 MG TABLET PO SCH (10:20)
[2021-04-02] MEDS ORDERED: SODIUM CHLORIDE 1,000 ML IV SCH (10:30)
[2021-04-02 18:16] VITALS: BMI 25.2
[2021-04-02] MEDS: ATORVASTATIN CA 20 MG TABLET (FP) PO SCH (21:33)
[2021-04-03] MEDS: sitaGLIPtin PHOSPHATE 50 MG TABLET PO SCH (06:45)
[2021-04-03] MEDS: INSULIN SLIDING SCALE (NOVOLOG) 1 VIAL SQ SCH ×4 (06:46→21:12)
[2021-04-03 08:40] LABS: BASO % 2.1 % (0-2.0); EOS % 13.5 % (0-4.5); HEMATOCRIT 25.6 % (32.4-45.2); HEMOGLOBIN 8.6 GM/dL (10.7-15.3); LYMPH % 19.1 % (8-40); MCH 30.2 pg (25.7-33.7); MCHC 33.5 g/dl (32.0-36.0); MEAN PLT VOLUME 7.8 fl (7.5-11.1); MONO % 8.4 % (3.8-10.2); NEUT % 56.9 % (42.8-82.8); PLATELET COUNT 230 10^3/uL (134-434); RBC 2.84 M/mm3 (3.60-5.2); RDW 13.6 % (11.6-15.6); WHITE BLOOD COUNT 5.4 K/mm3 (4.0-10.0)
[2021-04-03 09:12] LABS: BLOOD UREA NITROGEN 29.6 mg/dL (7-18); CALCIUM 9.2 mg/dL (8.5-10.1)
[2021-04-03 09:16] LABS: CREATININE 1.8 mg/dL (0.55-1.3)
[2021-04-03] MEDS ORDERED: PT OWN MED DRAWER 7, Y5N ONE (10:25)
[2021-04-03] MEDS: SODIUM BICARBONATE 650 MG TABLET PO SCH (10:43)
[2021-04-03] MEDS: CYANOCOBALAMIN 1,000 MCG TABLET (FP) PO SCH (10:44)
[2021-04-03] MEDS: FUROSEMIDE 40 MG TABLET (FP) PO SCH (10:44)
[2021-04-03] MEDS: FERROUS SO4 325 MG TABLET (FP) PO SCH (10:44)
[2021-04-03] MEDS: SERTRALINE HCL 50 MG TABLET (FP) PO SCH (10:44)
[2021-04-03] MEDS: LOSARTAN POTASSIUM 50 MG TABLET PO SCH (10:44)
[2021-04-03] MEDS: CALCITRIOL 0.25 MCG CAPSULE (FP) PO SCH (10:44)
[2021-04-03] MEDS: VITAMIN B COMPLEX W/C COMBO TABLET (FP) PO SCH (10:45)
[2021-04-03] MEDS: ATORVASTATIN CA 20 MG TABLET (FP) PO SCH (21:12)
[2021-04-04] MEDS ORDERED: hydrALAZINE HCL 20 MG/ML VIAL IVPUSH PRN (06:07)
[2021-04-04] MEDS: sitaGLIPtin PHOSPHATE 50 MG TABLET PO SCH (06:34)
[2021-04-04] MEDS: INSULIN SLIDING SCALE (NOVOLOG) 1 VIAL SQ SCH ×4 (06:37→21:14)
[2021-04-04] MEDS ORDERED: PT OWN MED DRAWER 7, Y5N ONE (09:21)
[2021-04-04] MEDS: CALCITRIOL 0.25 MCG CAPSULE (FP) PO SCH (09:32)
[2021-04-04] MEDS: FUROSEMIDE 40 MG TABLET (FP) PO SCH (09:33)
[2021-04-04] MEDS: CYANOCOBALAMIN 1,000 MCG TABLET (FP) PO SCH (09:33)
[2021-04-04] MEDS: FERROUS SO4 325 MG TABLET (FP) PO SCH (09:33)
[2021-04-04] MEDS: SERTRALINE HCL 50 MG TABLET (FP) PO SCH (09:33)
[2021-04-04] MEDS: LOSARTAN POTASSIUM 50 MG TABLET PO SCH (09:33)
[2021-04-04] MEDS: SODIUM BICARBONATE 650 MG TABLET PO SCH (09:34)
[2021-04-04] MEDS: VITAMIN B COMPLEX W/C COMBO TABLET (FP) PO SCH (09:34)
[2021-04-04] MEDS: ATORVASTATIN CA 20 MG TABLET (FP) PO SCH (21:09)
[2021-04-05] MEDS: sitaGLIPtin PHOSPHATE 50 MG TABLET PO SCH (07:22)
[2021-04-05] MEDS: INSULIN SLIDING SCALE (NOVOLOG) 1 VIAL SQ SCH ×2 (07:22→11:09)
[2021-04-05] MEDS ORDERED: PT OWN MED DRAWER 7, Y5N ONE (09:27)
[2021-04-05] MEDS: SODIUM BICARBONATE 650 MG TABLET PO SCH (09:34)
[2021-04-05] MEDS: FERROUS SO4 325 MG TABLET (FP) PO SCH (09:34)
[2021-04-05] MEDS: CALCITRIOL 0.25 MCG CAPSULE (FP) PO SCH (09:34)
[2021-04-05] MEDS: VITAMIN B COMPLEX W/C COMBO TABLET (FP) PO SCH (09:34)
[2021-04-05] MEDS: CYANOCOBALAMIN 1,000 MCG TABLET (FP) PO SCH (09:34)
[2021-04-05] MEDS: FUROSEMIDE 40 MG TABLET (FP) PO SCH (09:34)
[2021-04-05] MEDS: LOSARTAN POTASSIUM 50 MG TABLET PO SCH (09:34)
[2021-04-05] MEDS: SERTRALINE HCL 50 MG TABLET (FP) PO SCH (09:34)
[2021-04-05 16:57] VITALS: BP 153/74; PULSE 57; TEMP 98.6
== END 2021-04-05 17:59 | disposition home or self-care (01) ==
LOC: JER 20:40 → JERBED 04-02 02:33 → J5S 04-02 11:02
PROVIDERS: ADMIT Internal Medicine; ATTEND Internal Medicine
PROC: 3E013VG Introduction of Insulin into Subcutaneous Tissue, Percutaneous Approach (ICD-10-PCS; principal; 2021-04-02)
PROC: 3E0337Z Introduction of Electrolytic and Water Balance Substance into Peripheral Vein, Percutaneous Approach (ICD-10-PCS; 2021-04-02)
DX: R42 Dizziness and giddiness (principal); I10 Essential (primary) hypertension; E78.5 Hyperlipidemia, unspecified; Z98.84 Bariatric surgery status; L08.9 Local infection of the skin and subcutaneous tissue, unspecified; R79.89 Other specified abnormal findings of blood chemistry; R51.9 Headache, unspecified; E11.9 Type 2 diabetes mellitus without complications; D64.9 Anemia, unspecified
CPT/HCPCS: 36415; 70450-TC; 80048; 80053; 82550; 82962; 84484; 85025; 93005; 93010; 96360; 96372; 99285-25; C9803; G0378; U0003; U0005

== ENCOUNTER 2021-04-10 07:47 | Emergency (ER) | payer OTHER ==
[2021-04-10 08:07] VITALS: BMI 25.6
[2021-04-10] MEDS ORDERED: ACETAMINOPHEN 1000 MG/100 ML VIAL (NON FORMULARY) IVPB ONE (08:43)
[2021-04-10] MEDS ORDERED: METOCLOPRAMIDE HCL INJECTION 10 MG/2 ML VIAL IVPUSH ONE (08:43)
[2021-04-10] MEDS ORDERED: SODIUM CHLORIDE 0.9% 500 ML INFUS.BAG IV ONE (08:44)
[2021-04-10] MEDS ORDERED: ACETAMINOPHEN INJECTION 100 ML IVPB ONE (09:00)
[2021-04-10] MEDS ORDERED: METOCLOPRAMIDE HCL INJECTION 10 MG/2 ML VIAL ONE (09:00)
[2021-04-10 09:30] LABS: BASO % 0.8 % (0-2.0); EOS % 3.2 % (0-4.5); HEMATOCRIT 28.1 % (32.4-45.2); HEMOGLOBIN 9.7 GM/dL (10.7-15.3); MCH 30.8 pg (25.7-33.7); MCHC 34.7 g/dl (32.0-36.0); MEAN CELL VOLUME 88.8 fl (80-96); MEAN PLT VOLUME 7.3 fl (7.5-11.1); MONO % 6.2 % (3.8-10.2); NEUT % 74.8 % (42.8-82.8); PLATELET COUNT 223 10^3/uL (134-434); RBC 3.16 M/mm3 (3.60-5.2); RDW 13.6 % (11.6-15.6); WHITE BLOOD COUNT 10.9 K/mm3 (4.0-10.0)
[2021-04-10 09:50] LABS: CHLORIDE 102 mmol/L (98-107); SODIUM 135 mmol/L (136-145)
[2021-04-10 09:52] LABS: ALBUMIN 3.4 g/dl (3.4-5.0); ANION GAP 8 MMOL/L (8-16); BLOOD UREA NITROGEN 32.4 mg/dL (7-18); CALCIUM 8.6 mg/dL (8.5-10.1); CO2 25 mmol/L (21-32)
[2021-04-10 09:53] LABS: GLUCOSE,RANDOM 176 mg/dL (74-106)
[2021-04-10 09:55] LABS: SGPT/ALT 19 U/L (13-61)
[2021-04-10 09:56] LABS: CREATININE 1.4 mg/dL (0.55-1.3); SGOT/AST 28 U/L (15-37)
[2021-04-10 09:57] LABS: BILIRUBIN,TOTAL 0.9 mg/dL (0.2-1); TOT PROT 7.2 g/dl (6.4-8.2)
[2021-04-10 10:00] LABS: ALK PHOS 131 U/L (45-117)
[2021-04-10] MEDS ORDERED: NICARDIPINE 25 MG in DEXTROSE 5%-WATER - 240 ML IVPB SCH (11:44)
[2021-04-10 13:46] LABS: INR 0.94 (0.83-1.09); PROTHROMBIN TIME (PATIENT) 11.6 SEC (9.7-13.0)
[2021-04-10 13:48] LABS: ACTIVATED PTT 25.7 SECONDS (25.2-36.5)
[2021-04-10] MEDS ORDERED: hydrALAZINE HCL 20 MG/ML VIAL IVPUSH ONE (14:24)
[2021-04-10] MEDS ORDERED: hydrALAZINE HCL 20 MG/ML VIAL ONE (14:26)
[2021-04-10 14:35] VITALS: BP 182/87; PULSE 112; TEMP 99
== END 2021-04-10 14:30 | disposition short-term general hospital (02) ==
LOC: JER 07:47
PROC: 3E033GC Introduction of Other Therapeutic Substance into Peripheral Vein, Percutaneous Approach (ICD-10-PCS; principal; 2021-04-10)
DX: S06.5X9A Traumatic subdural hemorrhage with loss of consciousness of unspecified duration, initial encounter (principal); W19.XXXA Unspecified fall, initial encounter
CPT/HCPCS: 36415; 70450-TC; 72125-TC; 80053; 84484; 85025; 85610; 85730; 86850; 86900; 86901; 93005; 93010; 99291; C9803; J0131; U0003; U0005

== ENCOUNTER 2021-06-22 16:58 | Inpatient (IN) | payer OTHER ==
[2021-06-22 17:25] VITALS: BMI 28.3
[2021-06-22] MEDS ORDERED: ACETAMINOPHEN 1000 MG/100 ML BAG IVPB ONE (17:38)
[2021-06-22 18:15] LABS: BASO % 1.2 % (0-2.0); EOS % 2.3 % (0-4.5); HEMATOCRIT 29.7 % (32.4-45.2); HEMOGLOBIN 9.9 GM/dL (10.7-15.3); LYMPH % 24.5 % (8-40); MCH 29.2 pg (25.7-33.7); MCHC 33.4 g/dl (32.0-36.0); MEAN CELL VOLUME 87.3 fl (80-96); MEAN PLT VOLUME 7.7 fl (7.5-11.1); MONO % 7.3 % (3.8-10.2); NEUT % 64.7 % (42.8-82.8); PLATELET COUNT 199 10^3/uL (134-434); RDW 16.1 % (11.6-15.6); WHITE BLOOD COUNT 5.7 K/mm3 (4.0-10.0)
[2021-06-22 18:21] LABS: INR 0.97 (0.83-1.09); PROTHROMBIN TIME (PATIENT) 11.3 SEC (9.7-13.0)
[2021-06-22 18:24] LABS: ACTIVATED PTT 27.9 SECONDS (25.2-36.5)
[2021-06-22 18:50] LABS: ALBUMIN 3.6 g/dl (3.4-5.0); ALK PHOS 108 U/L (45-117); ANION GAP 7 MMOL/L (8-16); BILIRUBIN,TOTAL 0.7 mg/dL (0.2-1); BLOOD UREA NITROGEN 39.9 mg/dL (7-18); CALCIUM 9.5 mg/dL (8.5-10.1); CHLORIDE 108 mmol/L (98-107); CO2 25 mmol/L (21-32); CREATININE 1.8 mg/dL (0.55-1.3); GLUCOSE,RANDOM 143 mg/dL (74-106); SGOT/AST 22 U/L (15-37); SGPT/ALT 18 U/L (13-61); SODIUM 140 mmol/L (136-145); TOT PROT 7.4 g/dl (6.4-8.2)
[2021-06-22 19:14] LABS: MAGNESIUM 1.9 mg/dL (1.8-2.4)
[2021-06-23 02:02] LABS: EPI CELLS 19 /uL (0-25.1); HYALINE CASTS 2 /uL (0-3.1); URINE APPEARANCE CLEAR; URINE BACTERIA 56 /uL (0-1359); URINE BILIRUBIN NEGATIVE (NEGATIVE); URINE COLOR YELLOW; URINE GLUCOSE (UA) NEGATIVE (NEGATIVE); URINE KETONE NEGATIVE (NEGATIVE); URINE LEUK ESTERASE TRACE (NEGATIVE); URINE NITRITE NEGATIVE (NEGATIVE); URINE PROTEIN 3+ (NEGATIVE); URINE RBC 17 /uL (0-23.9); URINE UROBILINOGEN 0.2 mg/dL (0.2-1.0); URINE WBC 117 /uL (0-25.8)
[2021-06-23] MEDS ORDERED: ACETAMINOPHEN 325 MG TABLET (FP) PO PRN (02:32)
[2021-06-23] MEDS ORDERED: ONDANSETRON 4 MG/2 ML VIAL IVPUSH PRN (02:34)
[2021-06-23] MEDS: HEPARIN NA (PORCINE) 5,000 UNITS/ML 1ML VIAL SQ SCH ×3 (06:45→21:03)
[2021-06-23] MEDS: INSULIN SLIDING SCALE (NOVOLOG) 1 VIAL SQ SCH ×3 (06:46→18:16)
[2021-06-23] MEDS ORDERED: hydrALAZINE HCL 20 MG/ML VIAL IVPUSH ONE (06:48)
[2021-06-23] MEDS ORDERED: LORazepam 2 MG/ML SDV VIAL ONE (07:25)
[2021-06-23] MEDS ORDERED: LORazepam 2 MG/ML SDV VIAL IVPUSH ONE ×3 (07:27→07:45)
[2021-06-23] MEDS ORDERED: amLODIPine BESYLATE 2.5 MG TABLET (FP) PO ONE (07:59)
[2021-06-23] MEDS ORDERED: levETIRAcetam 500 MG/5 ML INJECTION VIAL IVPB ONE (08:00)
[2021-06-23] MEDS ORDERED: PHENobarbital SODIUM 65 MG/1 ML VIAL IVPUSH ONE (08:15)
[2021-06-23 09:51] LABS: CALCIUM 9.2 mg/dL (8.5-10.1); CREATININE 1.7 mg/dL (0.55-1.3)
[2021-06-23 09:52] LABS: ALBUMIN 3.2 g/dl (3.4-5.0); BILIRUBIN,TOTAL 0.7 mg/dL (0.2-1); TOT PROT 6.7 g/dl (6.4-8.2)
[2021-06-23] MEDS: SERTRALINE HCL 50 MG TABLET (FP) PO SCH (10:00)
[2021-06-23 10:11] LABS: BLOOD UREA NITROGEN 39.1 mg/dL (7-18); PHOSPHOROUS 3.7 mg/dL (2.5-4.9)
[2021-06-23 10:16] LABS: BASO % 1.5 % (0-2.0); HEMATOCRIT 27.2 % (32.4-45.2); MCH 28.9 pg (25.7-33.7); MCHC 33.3 g/dl (32.0-36.0); MEAN CELL VOLUME 86.8 fl (80-96); MEAN PLT VOLUME 8.1 fl (7.5-11.1); MONO % 7.6 % (3.8-10.2); NEUT % 53.9 % (42.8-82.8); PLATELET COUNT 196 10^3/uL (134-434); RBC 3.13 M/mm3 (3.60-5.2); RDW 16.6 % (11.6-15.6); WHITE BLOOD COUNT 5.8 K/mm3 (4.0-10.0)
[2021-06-23] MEDS: ATORVASTATIN CA 20 MG TABLET (FP) PO SCH (21:03)
[2021-06-23] MEDS: levETIRAcetam 500 MG/5 ML INJECTION VIAL IVPB SCH (21:03)
[2021-06-23] MEDS: MELATONIN 5 MG TABLETS PO SCH (21:35)
[2021-06-24] MEDS: INSULIN SLIDING SCALE (NOVOLOG) 1 VIAL SQ SCH ×5 (02:10→21:33)
[2021-06-24] MEDS: HEPARIN NA (PORCINE) 5,000 UNITS/ML 1ML VIAL SQ SCH ×3 (06:20→21:25)
[2021-06-24 07:08] LABS: BASO % 0.9 % (0-2.0); EOS % 1.8 % (0-4.5); HEMATOCRIT 30.5 % (32.4-45.2); HEMOGLOBIN 10.2 GM/dL (10.7-15.3); LYMPH % 17.9 % (8-40); MCH 29.2 pg (25.7-33.7); MCHC 33.4 g/dl (32.0-36.0); MEAN CELL VOLUME 87.7 fl (80-96); MEAN PLT VOLUME 8.2 fl (7.5-11.1); MONO % 6.7 % (3.8-10.2); NEUT % 72.7 % (42.8-82.8); PLATELET COUNT 195 10^3/uL (134-434); RBC 3.48 M/mm3 (3.60-5.2); RDW 16.4 % (11.6-15.6)
[2021-06-24 07:16] LABS: INR 1.03 (0.83-1.09); PROTHROMBIN TIME (PATIENT) 11.5 SEC (9.7-13.0)
[2021-06-24 07:18] LABS: ACTIVATED PTT 35.1 SECONDS (25.2-36.5)
[2021-06-24] MEDS ORDERED: LABETALOL HCL 5 MG/1 ML (100MG/20 ML VIAL) IVPUSH ONE ×3 (08:40→22:24)
[2021-06-24 09:13] LABS: ALBUMIN 3.3 g/dl (3.4-5.0); BILIRUBIN,TOTAL 0.8 mg/dL (0.2-1); BLOOD UREA NITROGEN 31.7 mg/dL (7-18); CREATININE 1.5 mg/dL (0.55-1.3); MAGNESIUM 2.1 mg/dL (1.8-2.4)
[2021-06-24] MEDS: levETIRAcetam 500 MG/5 ML INJECTION VIAL IVPB SCH ×2 (09:19→21:26)
[2021-06-24] MEDS: SERTRALINE HCL 50 MG TABLET (FP) PO SCH (09:20)
[2021-06-24] MEDS ORDERED: cefTRIAXone SODIUM 1 GM VIAL ONE (12:23)
[2021-06-24] MEDS ORDERED: DEXTROSE 5%-WATER - 50 ML IVPB ONE (12:24)
[2021-06-24] MEDS: CEFTRIAXONE 1 GM in DEXTROSE 5%-WATER - 50 ML IVPB SCH (12:25)
[2021-06-24] MEDS: DEXTROSE 5%-0.45% SALINE 1,000 ML IV SCH (12:27)
[2021-06-24] MEDS ORDERED: ACETAMINOPHEN 1000 MG/100 ML BAG IVPB ONE (21:03)
[2021-06-24] MEDS: MELATONIN 5 MG TABLETS PO SCH (23:44)
[2021-06-24] MEDS: ATORVASTATIN CA 20 MG TABLET (FP) PO SCH (23:44)
[2021-06-25] MEDS ORDERED: hydrALAZINE HCL 20 MG/ML VIAL IVPUSH ONE (01:57)
[2021-06-25] MEDS: DEXTROSE 5%-0.45% SALINE 1,000 ML IV SCH ×2 (02:45→12:40)
[2021-06-25] MEDS ORDERED: hydrALAZINE HCL 20 MG/ML VIAL IM PRN (03:30)
[2021-06-25] MEDS ORDERED: hydrALAZINE HCL 20 MG/ML VIAL IVPUSH PRN ×2 (06:08→09:51)
[2021-06-25] MEDS: HEPARIN NA (PORCINE) 5,000 UNITS/ML 1ML VIAL SQ SCH ×3 (06:26→21:32)
[2021-06-25] MEDS: INSULIN SLIDING SCALE (NOVOLOG) 1 VIAL SQ SCH ×4 (06:38→22:07)
[2021-06-25] MEDS ORDERED: DEXTROSE 5%-WATER - 50 ML IVPB ONE (10:11)
[2021-06-25] MEDS ORDERED: cefTRIAXone SODIUM 1 GM VIAL ONE (10:11)
[2021-06-25] MEDS: levETIRAcetam 500 MG/5 ML INJECTION VIAL IVPB SCH ×2 (10:20→21:32)
[2021-06-25] MEDS: SERTRALINE HCL 50 MG TABLET (FP) PO SCH (10:22)
[2021-06-25] MEDS: amLODIPine BESYLATE 5 MG TABLET (FP) PO SCH (10:22)
[2021-06-25] MEDS: CEFTRIAXONE 1 GM in DEXTROSE 5%-WATER - 50 ML IVPB SCH (10:22)
[2021-06-25] MEDS: hydrALAZINE HCL 20 MG/ML VIAL IVPUSH PRN (16:47)
[2021-06-25] MEDS: ATORVASTATIN CA 20 MG TABLET (FP) PO SCH (21:34)
[2021-06-25] MEDS: MELATONIN 5 MG TABLETS PO SCH (21:34)
[2021-06-26] MEDS: HEPARIN NA (PORCINE) 5,000 UNITS/ML 1ML VIAL SQ SCH ×3 (06:31→21:50)
[2021-06-26] MEDS: INSULIN SLIDING SCALE (NOVOLOG) 1 VIAL SQ SCH ×4 (06:32→21:51)
[2021-06-26] MEDS ORDERED: DEXTROSE 5%-WATER - 50 ML IVPB ONE (08:46)
[2021-06-26] MEDS ORDERED: cefTRIAXone SODIUM 1 GM VIAL ONE (08:46)
[2021-06-26] MEDS: levETIRAcetam 500 MG/5 ML INJECTION VIAL IVPB SCH ×2 (09:09→21:50)
[2021-06-26] MEDS: hydrALAZINE HCL 20 MG/ML VIAL IVPUSH PRN ×2 (09:11→23:03)
[2021-06-26] MEDS: amLODIPine BESYLATE 5 MG TABLET (FP) PO SCH (09:11)
[2021-06-26] MEDS: CEFTRIAXONE 1 GM in DEXTROSE 5%-WATER - 50 ML IVPB SCH (09:12)
[2021-06-26] MEDS: SERTRALINE HCL 50 MG TABLET (FP) PO SCH (11:23)
[2021-06-26] MEDS: AMINO ACIDS 4.25%/D5W 1,000 ML IV SCH ×2 (16:00→21:50)
[2021-06-26] MEDS ORDERED: PT OWN MED DRAWER 7, Y5N ONE (16:54)
[2021-06-26] MEDS ORDERED: levETIRAcetam 500 MG/5 ML INJECTION VIAL IVPB ONE (17:45)
[2021-06-26 19:09] LABS: CALCIUM 7.7 mg/dL (8.5-10.1)
[2021-06-26 19:10] LABS: BLOOD UREA NITROGEN 26.1 mg/dL (7-18)
[2021-06-26 19:13] LABS: CREATININE 1.3 mg/dL (0.55-1.3)
[2021-06-26] MEDS ORDERED: ONDANSETRON 4 MG/2 ML VIAL IVPUSH PRN (19:25)
[2021-06-26] MEDS ORDERED: ACETAMINOPHEN 325 MG TABLET (FP) PO PRN (19:25)
[2021-06-26] MEDS: MELATONIN 5 MG TABLETS PO SCH (21:50)
[2021-06-26] MEDS: ATORVASTATIN CA 20 MG TABLET (FP) PO SCH (21:50)
[2021-06-27] MEDS: HEPARIN NA (PORCINE) 5,000 UNITS/ML 1ML VIAL SQ SCH ×3 (06:41→21:55)
[2021-06-27] MEDS: INSULIN SLIDING SCALE (NOVOLOG) 1 VIAL SQ SCH ×4 (06:41→21:59)
[2021-06-27] MEDS ORDERED: PT OWN MED DRAWER 7, Y5N ONE ×2 (06:47→08:09)
[2021-06-27 07:41] LABS: BASO % 1.1 % (0-2.0); EOS % 2.9 % (0-4.5); HEMATOCRIT 25.7 % (32.4-45.2); HEMOGLOBIN 8.7 GM/dL (10.7-15.3); LYMPH % 15.8 % (8-40); MCH 29.7 pg (25.7-33.7); MCHC 33.8 g/dl (32.0-36.0); MEAN PLT VOLUME 8.4 fl (7.5-11.1); MONO % 6.5 % (3.8-10.2); NEUT % 73.7 % (42.8-82.8); PLATELET COUNT 213 10^3/uL (134-434); RBC 2.92 M/mm3 (3.60-5.2); RDW 15.8 % (11.6-15.6); WHITE BLOOD COUNT 6.5 K/mm3 (4.0-10.0)
[2021-06-27] MEDS ORDERED: cefTRIAXone SODIUM 1 GM VIAL ONE (08:07)
[2021-06-27] MEDS ORDERED: DEXTROSE 5%-WATER - 50 ML IVPB ONE (08:08)
[2021-06-27 08:51] LABS: CALCIUM 7.2 mg/dL (8.5-10.1)
[2021-06-27 08:52] LABS: BLOOD UREA NITROGEN 37.1 mg/dL (7-18)
[2021-06-27 08:54] LABS: CREATININE 1.3 mg/dL (0.55-1.3)
[2021-06-27 08:56] LABS: BILIRUBIN,TOTAL 0.4 mg/dL (0.2-1)
[2021-06-27 09:02] LABS: ALBUMIN 2.6 g/dl (3.4-5.0)
[2021-06-27] MEDS: levETIRAcetam 500 MG/5 ML INJECTION VIAL IVPB SCH ×2 (09:06→21:54)
[2021-06-27] MEDS: amLODIPine BESYLATE 5 MG TABLET (FP) PO SCH (09:08)
[2021-06-27] MEDS: CEFTRIAXONE 1 GM in DEXTROSE 5%-WATER - 50 ML IVPB SCH (09:10)
[2021-06-27] MEDS: SERTRALINE HCL 50 MG TABLET (FP) PO SCH (09:11)
[2021-06-27] MEDS: AMINO ACIDS 4.25%/D5W 1,000 ML IV SCH ×2 (10:00→21:55)
[2021-06-27] MEDS: hydrALAZINE HCL 20 MG/ML VIAL IVPUSH PRN (18:16)
[2021-06-27] MEDS: METOPROLOL TARTRATE 5 MG/5 ML VIAL IVPUSH PRN (21:26)
[2021-06-27] MEDS: MELATONIN 5 MG TABLETS PO SCH (21:55)
[2021-06-27] MEDS: ATORVASTATIN CA 20 MG TABLET (FP) PO SCH (21:55)
[2021-06-27] MEDS ORDERED: hydrALAZINE HCL 20 MG/ML VIAL IVPUSH ONE (22:41)
[2021-06-28] MEDS: METOPROLOL TARTRATE 5 MG/5 ML VIAL IVPUSH PRN (01:23)
[2021-06-28] MEDS: hydrALAZINE HCL 20 MG/ML VIAL IVPUSH PRN ×2 (02:09→08:17)
[2021-06-28] MEDS: HEPARIN NA (PORCINE) 5,000 UNITS/ML 1ML VIAL SQ SCH ×3 (05:50→21:49)
[2021-06-28] MEDS: AMINO ACIDS 4.25%/D5W 1,000 ML IV SCH ×3 (06:39→21:22)
[2021-06-28] MEDS: INSULIN SLIDING SCALE (NOVOLOG) 1 VIAL SQ SCH ×4 (06:41→21:59)
[2021-06-28 07:10] LABS: HEMATOCRIT 28.5 % (32.4-45.2); HEMOGLOBIN 9.6 GM/dL (10.7-15.3); LYMPH % 14.7 % (8-40); MCH 29.4 pg (25.7-33.7); MCHC 33.9 g/dl (32.0-36.0); MEAN CELL VOLUME 86.9 fl (80-96); MEAN PLT VOLUME 8.3 fl (7.5-11.1); MONO % 5.8 % (3.8-10.2); NEUT % 76.5 % (42.8-82.8); PLATELET COUNT 240 10^3/uL (134-434); RBC 3.27 M/mm3 (3.60-5.2); WHITE BLOOD COUNT 6.4 K/mm3 (4.0-10.0)
[2021-06-28 07:23] LABS: ALBUMIN 2.5 g/dl (3.4-5.0); BLOOD UREA NITROGEN 46.3 mg/dL (7-18); CALCIUM 7.2 mg/dL (8.5-10.1)
[2021-06-28 07:26] LABS: CREATININE 1.1 mg/dL (0.55-1.3)
[2021-06-28 07:28] LABS: BILIRUBIN,TOTAL 0.3 mg/dL (0.2-1); TOT PROT 6.3 g/dl (6.4-8.2)
[2021-06-28] MEDS ORDERED: DEXTROSE 5%-WATER - 50 ML IVPB ONE (09:13)
[2021-06-28] MEDS ORDERED: cefTRIAXone SODIUM 1 GM VIAL ONE (09:13)
[2021-06-28] MEDS: amLODIPine BESYLATE 5 MG TABLET (FP) PO SCH (09:30)
[2021-06-28] MEDS: CEFTRIAXONE 1 GM in DEXTROSE 5%-WATER - 50 ML IVPB SCH (09:30)
[2021-06-28] MEDS: levETIRAcetam 500 MG/5 ML INJECTION VIAL IVPB SCH ×2 (09:30→21:49)
[2021-06-28] MEDS: SERTRALINE HCL 50 MG TABLET (FP) PO SCH (09:31)
[2021-06-28] MEDS ORDERED: METOPROLOL TARTRATE 5 MG/5 ML VIAL IVPUSH PRN (10:25)
[2021-06-28] MEDS: KCL 10 MEQ IVPB 10 MEQ/100 ML INFUS.BAG IVPB SCH ×2 (11:29→13:24)
[2021-06-28] MEDS: hydrALAZINE HCL 20 MG/ML VIAL IVPUSH SCH ×4 (11:29→22:02)
[2021-06-28] MEDS: ATORVASTATIN CA 20 MG TABLET (FP) PO SCH (21:23)
[2021-06-28] MEDS: MELATONIN 5 MG TABLETS PO SCH (21:50)
[2021-06-29] MEDS: hydrALAZINE HCL 20 MG/ML VIAL IVPUSH SCH ×6 (04:13→23:51)
[2021-06-29] MEDS: HEPARIN NA (PORCINE) 5,000 UNITS/ML 1ML VIAL SQ SCH ×3 (06:47→21:48)
[2021-06-29] MEDS: INSULIN SLIDING SCALE (NOVOLOG) 1 VIAL SQ SCH ×4 (06:57→21:57)
[2021-06-29] MEDS: AMINO ACIDS 4.25%/D5W 1,000 ML IV SCH ×3 (07:42→18:42)
[2021-06-29] MEDS ORDERED: cefTRIAXone SODIUM 1 GM VIAL ONE (09:25)
[2021-06-29] MEDS ORDERED: DEXTROSE 5%-WATER - 50 ML IVPB ONE (09:26)
[2021-06-29] MEDS: CEFTRIAXONE 1 GM in DEXTROSE 5%-WATER - 50 ML IVPB SCH (09:29)
[2021-06-29] MEDS: levETIRAcetam 500 MG/5 ML INJECTION VIAL IVPB SCH ×2 (10:18→21:50)
[2021-06-29] MEDS: SERTRALINE HCL 50 MG TABLET (FP) PO SCH (10:19)
[2021-06-29] MEDS ORDERED: ROCURONIUM BROMIDE 50 MG/5 ML SYRINGE ONE (10:30)
[2021-06-29] MEDS ORDERED: ePHEDrine SULFATE 50 MG/1 ML AMPULE ONE (10:30)
[2021-06-29] MEDS ORDERED: SUCCINYLCHOLINE CHLORIDE 200 MG/10 ML SYRINGE ONE (10:30)
[2021-06-29] MEDS ORDERED: LIDOCAINE HCL/PF 2% SDV 5ML VIAL ONE (10:30)
[2021-06-29] MEDS ORDERED: PROPOFOL 20 ML ONE ×2 (10:30)
[2021-06-29] MEDS ORDERED: DEXAMETHASONE SOD PHOSPHATE 4 MG/1 ML VIAL ONE (10:30)
[2021-06-29] MEDS ORDERED: KETOROLAC TROMETHAMINE 30 MG/1 ML VIAL ONE (10:30)
[2021-06-29] MEDS ORDERED: ALBUTEROL SO4 HFA INHALER IH ONE (11:24)
[2021-06-29] MEDS ORDERED: BUPIVACAINE HCL/PF 0.5% (5MG/ML) 10 ML VIAL ONE (11:49)
[2021-06-29] MEDS ORDERED: BUPIVACAINE LIPOSOME/PF (EXPAREL) 266 MG/20 ML VIAL ONE (11:49)
[2021-06-29] MEDS ORDERED: INDOCYANINE GREEN 25 MG/10 ML VIAL IVPUSH ONE (12:15)
[2021-06-29] MEDS ORDERED: ONDANSETRON 4 MG/2 ML VIAL IVPUSH PRN (13:15)
[2021-06-29] MEDS ORDERED: ACETAMINOPHEN 325 MG TABLET (FP) PO PRN (13:15)
[2021-06-29] MEDS ORDERED: METOPROLOL TARTRATE 5 MG/5 ML VIAL IVPUSH PRN (13:15)
[2021-06-29] MEDS: ATORVASTATIN CA 20 MG TABLET (FP) PO SCH (21:51)
[2021-06-29] MEDS: MELATONIN 5 MG TABLETS PO SCH (21:51)
[2021-06-29] MEDS ORDERED: AMINO ACIDS 4.25%/D5W 1,000 ML IV SCH (22:00)
[2021-06-30] MEDS: hydrALAZINE HCL 20 MG/ML VIAL IVPUSH SCH ×5 (04:20→18:40)
[2021-06-30] MEDS: HEPARIN NA (PORCINE) 5,000 UNITS/ML 1ML VIAL SQ SCH ×3 (05:42→22:12)
[2021-06-30] MEDS: AMINO ACIDS 4.25%/D5W 1,000 ML IV SCH ×2 (05:43→18:02)
[2021-06-30] MEDS: INSULIN SLIDING SCALE (NOVOLOG) 1 VIAL SQ SCH ×4 (07:00→22:34)
[2021-06-30] MEDS ORDERED: cefTRIAXone SODIUM 1 GM VIAL ONE (09:28)
[2021-06-30] MEDS ORDERED: DEXTROSE 5%-WATER - 50 ML IVPB ONE (09:28)
[2021-06-30] MEDS: SERTRALINE HCL 50 MG TABLET (FP) PO SCH (09:36)
[2021-06-30] MEDS: levETIRAcetam 500 MG/5 ML INJECTION VIAL IVPB SCH ×2 (09:36→22:11)
[2021-06-30] MEDS: CEFTRIAXONE 1 GM in DEXTROSE 5%-WATER - 50 ML IVPB SCH (09:37)
[2021-06-30] MEDS ORDERED: PT OWN MED DRAWER 7, Y5N ONE ×4 (10:57→17:26)
[2021-06-30] MEDS: MELATONIN 5 MG TABLETS PO SCH (21:37)
[2021-06-30] MEDS: ATORVASTATIN CA 20 MG TABLET (FP) PO SCH (21:37)
[2021-07-01] MEDS: hydrALAZINE HCL 20 MG/ML VIAL IVPUSH SCH ×6 (00:06→22:05)
[2021-07-01] MEDS: HEPARIN NA (PORCINE) 5,000 UNITS/ML 1ML VIAL SQ SCH ×3 (07:01→22:12)
[2021-07-01] MEDS: AMINO ACIDS 4.25%/D5W 1,000 ML IV SCH ×3 (07:01→20:00)
[2021-07-01] MEDS: INSULIN SLIDING SCALE (NOVOLOG) 1 VIAL SQ SCH ×4 (07:05→22:31)
[2021-07-01] MEDS ORDERED: PT OWN MED DRAWER 7, Y5N ONE (09:06)
[2021-07-01] MEDS ORDERED: DEXTROSE 5%-WATER - 50 ML IVPB ONE (09:07)
[2021-07-01] MEDS ORDERED: cefTRIAXone SODIUM 1 GM VIAL ONE (09:07)
[2021-07-01] MEDS: levETIRAcetam 500 MG/5 ML INJECTION VIAL IVPB SCH ×2 (09:11→22:13)
[2021-07-01] MEDS: CEFTRIAXONE 1 GM in DEXTROSE 5%-WATER - 50 ML IVPB SCH (09:19)
[2021-07-01] MEDS: SERTRALINE HCL 50 MG TABLET (FP) PO SCH (09:19)
[2021-07-01 12:41] LABS: BASO % 0.7 % (0-2.0); EOS % 1.4 % (0-4.5); HEMATOCRIT 28.3 % (32.4-45.2); HEMOGLOBIN 9.7 GM/dL (10.7-15.3); LYMPH % 11.2 % (8-40); MCH 29.6 pg (25.7-33.7); MCHC 34.2 g/dl (32.0-36.0); MEAN CELL VOLUME 86.6 fl (80-96); MEAN PLT VOLUME 8.5 fl (7.5-11.1); MONO % 6.1 % (3.8-10.2); NEUT % 80.6 % (42.8-82.8); PLATELET COUNT 269 10^3/uL (134-434); RBC 3.26 M/mm3 (3.60-5.2); RDW 16.3 % (11.6-15.6); WHITE BLOOD COUNT 8.3 K/mm3 (4.0-10.0)
[2021-07-01] MEDS ORDERED: LORazepam 2 MG/ML SDV VIAL ONE (12:56)
[2021-07-01 13:09] LABS: CALCIUM 7.8 mg/dL (8.5-10.1); MAGNESIUM 2.3 mg/dL (1.8-2.4)
[2021-07-01] MEDS: LORazepam 2 MG/ML SDV VIAL IVPUSH SCH ×2 (13:09→18:15)
[2021-07-01 13:12] LABS: CREATININE 1.1 mg/dL (0.55-1.3)
[2021-07-01 13:14] LABS: BILIRUBIN,TOTAL 0.2 mg/dL (0.2-1)
[2021-07-01] MEDS: MELATONIN 5 MG TABLETS PO SCH (22:14)
[2021-07-01] MEDS: ATORVASTATIN CA 20 MG TABLET (FP) PO SCH (22:14)
[2021-07-02] MEDS: LORazepam 2 MG/ML SDV VIAL IVPUSH SCH ×3 (02:29→17:09)
[2021-07-02] MEDS: hydrALAZINE HCL 20 MG/ML VIAL IVPUSH SCH ×2 (02:29→06:30)
[2021-07-02] MEDS: AMINO ACIDS 4.25%/D5W 1,000 ML IV SCH (06:27)
[2021-07-02] MEDS: INSULIN SLIDING SCALE (NOVOLOG) 1 VIAL SQ SCH ×4 (06:29→22:16)
[2021-07-02] MEDS: HEPARIN NA (PORCINE) 5,000 UNITS/ML 1ML VIAL SQ SCH ×3 (06:29→22:15)
[2021-07-02] MEDS ORDERED: cefTRIAXone SODIUM 1 GM VIAL ONE (10:24)
[2021-07-02] MEDS ORDERED: DEXTROSE 5%-WATER - 50 ML IVPB ONE (10:24)
[2021-07-02] MEDS: levETIRAcetam 500 MG/5 ML INJECTION VIAL IVPB SCH ×2 (10:31→22:15)
[2021-07-02] MEDS: CEFTRIAXONE 1 GM in DEXTROSE 5%-WATER - 50 ML IVPB SCH (10:31)
[2021-07-02] MEDS: SERTRALINE HCL 50 MG TABLET (FP) PO SCH (10:32)
[2021-07-02] MEDS: LOSARTAN POTASSIUM 50 MG TABLET PEG SCH (10:32)
[2021-07-02] MEDS: METOPROLOL TARTRATE 25 MG TABLET (FP) PEG SCH ×2 (10:32→22:15)
[2021-07-02] MEDS: ATORVASTATIN CA 20 MG TABLET (FP) PO SCH (22:15)
[2021-07-02] MEDS: MELATONIN 5 MG TABLETS PO SCH (22:16)
[2021-07-03] MEDS: LORazepam 2 MG/ML SDV VIAL IVPUSH SCH ×3 (02:01→17:23)
[2021-07-03] MEDS: HEPARIN NA (PORCINE) 5,000 UNITS/ML 1ML VIAL SQ SCH ×3 (05:38→21:13)
[2021-07-03] MEDS: INSULIN SLIDING SCALE (NOVOLOG) 1 VIAL SQ SCH ×4 (06:05→21:09)
[2021-07-03] MEDS ORDERED: DEXTROSE 5%-WATER - 50 ML IVPB ONE (09:09)
[2021-07-03] MEDS ORDERED: cefTRIAXone SODIUM 1 GM VIAL ONE (09:09)
[2021-07-03] MEDS: levETIRAcetam 500 MG/5 ML INJECTION VIAL IVPB SCH ×2 (09:13→21:13)
[2021-07-03] MEDS: METOPROLOL TARTRATE 25 MG TABLET (FP) PEG SCH ×2 (09:14→21:13)
[2021-07-03] MEDS: SERTRALINE HCL 50 MG TABLET (FP) PO SCH (09:14)
[2021-07-03] MEDS: CEFTRIAXONE 1 GM in DEXTROSE 5%-WATER - 50 ML IVPB SCH (09:14)
[2021-07-03] MEDS: LOSARTAN POTASSIUM 50 MG TABLET PEG SCH (09:32)
[2021-07-03] MEDS ORDERED: ALBUTEROL SO4 2.5/IPRATROPIUM 0.5 INH SOL 3 ML VIAL.NEB. NEB PRN (09:46)
[2021-07-03] MEDS: MELATONIN 5 MG TABLETS PO SCH (21:09)
[2021-07-03] MEDS: ATORVASTATIN CA 20 MG TABLET (FP) PO SCH (21:13)
[2021-07-04] MEDS: LORazepam 2 MG/ML SDV VIAL IVPUSH SCH ×3 (01:57→17:04)
[2021-07-04] MEDS: INSULIN SLIDING SCALE (NOVOLOG) 1 VIAL SQ SCH ×4 (06:12→21:46)
[2021-07-04] MEDS: HEPARIN NA (PORCINE) 5,000 UNITS/ML 1ML VIAL SQ SCH ×3 (06:14→21:01)
[2021-07-04] MEDS ORDERED: DEXTROSE 5%-WATER - 50 ML IVPB ONE (10:07)
[2021-07-04] MEDS ORDERED: cefTRIAXone SODIUM 1 GM VIAL ONE (10:07)
[2021-07-04] MEDS: METOPROLOL TARTRATE 25 MG TABLET (FP) PEG SCH ×2 (10:20→21:02)
[2021-07-04] MEDS: levETIRAcetam 500 MG/5 ML INJECTION VIAL IVPB SCH ×2 (10:20→21:01)
[2021-07-04] MEDS: SERTRALINE HCL 50 MG TABLET (FP) PO SCH (10:20)
[2021-07-04] MEDS: CEFTRIAXONE 1 GM in DEXTROSE 5%-WATER - 50 ML IVPB SCH (10:20)
[2021-07-04] MEDS: LOSARTAN POTASSIUM 50 MG TABLET PEG SCH (10:21)
[2021-07-04 13:20] LABS: EOS % 3.5 % (0-4.5); HEMATOCRIT 25.8 % (32.4-45.2); HEMOGLOBIN 8.8 GM/dL (10.7-15.3); LYMPH % 14.9 % (8-40); MCH 29.5 pg (25.7-33.7); MCHC 34.2 g/dl (32.0-36.0); MEAN CELL VOLUME 86.2 fl (80-96); MONO % 8.4 % (3.8-10.2); NEUT % 72.2 % (42.8-82.8); PLATELET COUNT 282 10^3/uL (134-434); RBC 2.99 M/mm3 (3.60-5.2); RDW 16.4 % (11.6-15.6); WHITE BLOOD COUNT 7.8 K/mm3 (4.0-10.0)
[2021-07-04 13:27] LABS: BLOOD UREA NITROGEN 58.6 mg/dL (7-18); CALCIUM 7.9 mg/dL (8.5-10.1)
[2021-07-04 13:31] LABS: CREATININE 1.3 mg/dL (0.55-1.3)
[2021-07-04 13:32] LABS: BILIRUBIN,TOTAL 0.4 mg/dL (0.2-1)
[2021-07-04 13:35] LABS: ALBUMIN 2.3 g/dl (3.4-5.0)
[2021-07-04] MEDS: MELATONIN 5 MG TABLETS PO SCH (21:01)
[2021-07-04] MEDS: ATORVASTATIN CA 20 MG TABLET (FP) PO SCH (21:02)
[2021-07-05] MEDS: LORazepam 2 MG/ML SDV VIAL IVPUSH SCH ×3 (02:40→17:49)
[2021-07-05] MEDS: HEPARIN NA (PORCINE) 5,000 UNITS/ML 1ML VIAL SQ SCH ×2 (06:15→13:24)
[2021-07-05] MEDS: INSULIN SLIDING SCALE (NOVOLOG) 1 VIAL SQ SCH ×3 (06:17→17:47)
[2021-07-05] MEDS: levETIRAcetam 500 MG/5 ML INJECTION VIAL IVPB SCH (10:31)
[2021-07-05] MEDS: SERTRALINE HCL 50 MG TABLET (FP) PO SCH (10:31)
[2021-07-05] MEDS: METOPROLOL TARTRATE 25 MG TABLET (FP) PEG SCH (10:31)
[2021-07-05] MEDS: LOSARTAN POTASSIUM 50 MG TABLET PEG SCH (10:31)
[2021-07-05 18:42] VITALS: BP 141/55; PULSE 69; TEMP 98.6
== END 2021-07-05 21:00 | DRG 100 ==
LOC: JER 16:58 → JERBED 22:44 → J5S 06-23 03:01 → J4W 06-23 03:31 → JICU 06-23 08:40 → J2W 06-25 11:36 → J4S 07-01 13:52
PROVIDERS: ADMIT Internal Medicine; ATTEND Internal Medicine
PROC: 0DH64UZ Insertion of Feeding Device into Stomach, Percutaneous Endoscopic Approach (ICD-10-PCS; principal; 2021-06-29 10:00)
DX: G40.901 Epilepsy, unspecified, not intractable, with status epilepticus (principal); I63.9 Cerebral infarction, unspecified; R44.3 Hallucinations, unspecified; N39.0 Urinary tract infection, site not specified; F02.81 Dementia in other diseases classified elsewhere, unspecified severity, with behavioral disturbance; I13.0 Hypertensive heart and chronic kidney disease with heart failure and stage 1 through stage 4 chronic kidney disease, or unspecified chronic kidney disease; E46 Unspecified protein-calorie malnutrition; R47.01 Aphasia; R45.1 Restlessness and agitation; I25.10 Atherosclerotic heart disease of native coronary artery without angina pectoris; E11.22 Type 2 diabetes mellitus with diabetic chronic kidney disease; E78.5 Hyperlipidemia, unspecified; N18.9 Chronic kidney disease, unspecified; D64.9 Anemia, unspecified; G30.9 Alzheimer's disease, unspecified; K21.9 Gastro-esophageal reflux disease without esophagitis; E11.65 Type 2 diabetes mellitus with hyperglycemia; I50.9 Heart failure, unspecified; E11.43 Type 2 diabetes mellitus with diabetic autonomic (poly)neuropathy; R62.7 Adult failure to thrive; K57.90 Diverticulosis of intestine, part unspecified, without perforation or abscess without bleeding; R63.0 Anorexia; K44.9 Diaphragmatic hernia without obstruction or gangrene; R55 Syncope and collapse
CPT/HCPCS: 36415; 70450-TC; 71045-TC-FY; 72100-TC-FY; 72125-TC; 73523-TC-FY; 74018-TC-FY; 80048; 80053; 80061; 80177; 81003; 82310; 82550; 82728; 82962; 83540; 83550; 83735; 84100; 84439; 84443; 84484; 85025; 85045; 85610; 85730; 86850; 86900; 86901; 87086; 87186; 93005; 93010; 93306-TC; 93880-TC; 94640; 94760; 97162-GP; 99285-25; C9803-CS; J1644; U0003; U0005

== ENCOUNTER 2021-07-08 03:54 | Inpatient (IN) | payer OTHER ==
[2021-07-08 04:00] VITALS: BMI 25.0
[2021-07-08] MEDS ORDERED: levETIRAcetam 500 MG/5 ML INJECTION VIAL IVPB ONE ×2 (06:27→06:34)
[2021-07-08] MEDS ORDERED: METOPROLOL TARTRATE 5 MG/5 ML VIAL IVPUSH ONE (06:30)
[2021-07-08] MEDS ORDERED: METOPROLOL TARTRATE 5 MG/5 ML VIAL ONE ×2 (06:35→13:15)
[2021-07-08] MEDS ORDERED: ACETAMINOPHEN 1000 MG/100 ML VIAL IVPB ONE (06:35)
[2021-07-08] MEDS ORDERED: ACETAMINOPHEN INJECTION 100 ML IVPB ONE (07:21)
[2021-07-08 07:30] LABS: HEMATOCRIT 28.3 % (32.4-45.2); HEMOGLOBIN 9.6 GM/dL (10.7-15.3); MCH 29.2 pg (25.7-33.7); MCHC 33.8 g/dl (32.0-36.0); MEAN CELL VOLUME 86.6 fl (80-96); PLATELET COUNT 241 10^3/uL (134-434); RBC 3.27 M/mm3 (3.60-5.2); RDW 15.9 % (11.6-15.6); WHITE BLOOD COUNT 6.6 K/mm3 (4.0-10.0)
[2021-07-08 07:51] LABS: INR 1.07 (0.83-1.09)
[2021-07-08 07:53] LABS: ACTIVATED PTT 28.3 SECONDS (25.2-36.5)
[2021-07-08 08:03] LABS: CHLORIDE 110 mmol/L (98-107); SODIUM 140 mmol/L (136-145)
[2021-07-08 08:05] LABS: ALBUMIN 2.5 g/dl (3.4-5.0); BLOOD UREA NITROGEN 37.1 mg/dL (7-18); CALCIUM 8.4 mg/dL (8.5-10.1); CO2 27 mmol/L (21-32); GLUCOSE,RANDOM 177 mg/dL (74-106)
[2021-07-08 08:08] LABS: CREATININE 1.1 mg/dL (0.55-1.3); SGOT/AST 414 U/L (15-37); SGPT/ALT 105 U/L (13-61)
[2021-07-08 08:10] LABS: BILIRUBIN,TOTAL 0.6 mg/dL (0.2-1); TOT PROT 6.9 g/dl (6.4-8.2)
[2021-07-08 08:23] LABS: ALK PHOS 212 U/L (45-117); ANION GAP 3 MMOL/L (8-16)
[2021-07-08 10:25] LABS: ANISOCYTOSIS 0; HELMET CELLS 0; HOWELL-JOLLY BODIES 0; MACROCYTOSIS 0; OVALOCYTE 0; PLATELET ESTIMATE NORMAL; ROULEAU 0; SICKELED CELLS 0; TARGET CELLS 0; TEAR DROP CELLS 0; TOXIC GRANULATION 0
[2021-07-08 10:25] LABS: ALBUMIN 2.4 g/dl (3.4-5.0); BLOOD UREA NITROGEN 38.2 mg/dL (7-18)
[2021-07-08 10:28] LABS: CREATININE 1.2 mg/dL (0.55-1.3)
[2021-07-08 10:30] LABS: BILIRUBIN,TOTAL 0.5 mg/dL (0.2-1); TOT PROT 6.3 g/dl (6.4-8.2)
[2021-07-08] MEDS ORDERED: hydrALAZINE HCL 20 MG/ML VIAL IVPUSH PRN (13:01)
[2021-07-08] MEDS: METOPROLOL TARTRATE 5 MG/5 ML VIAL IVPUSH PRN (13:15)
[2021-07-08] MEDS: D5-1/2NS+20 MEQ KCL - 20 MEQ/1,000 ML INFUS.BAG IV SCH (13:30)
[2021-07-08] MEDS: LOSARTAN POTASSIUM 50 MG TABLET PEG SCH (13:31)
[2021-07-08] MEDS: METOPROLOL TARTRATE 50 MG TABLET (FP) PEG SCH (13:31)
[2021-07-08] MEDS: HEPARIN NA (PORCINE) 5,000 UNITS/ML 1ML VIAL SQ SCH ×2 (13:34→22:47)
[2021-07-08] MEDS ORDERED: HEPARIN NA (PORCINE) 5,000 UNITS/ML 1ML VIAL ONE ×2 (14:11→21:44)
[2021-07-08] MEDS: INSULIN SLIDING SCALE (NOVOLOG) 1 VIAL SQ SCH (16:13)
[2021-07-09] MEDS: METOPROLOL TARTRATE 50 MG TABLET (FP) PEG SCH ×3 (01:11→21:50)
[2021-07-09] MEDS: ATORVASTATIN CA 20 MG TABLET (FP) GT SCH ×2 (01:11→21:50)
[2021-07-09] MEDS: HEPARIN NA (PORCINE) 5,000 UNITS/ML 1ML VIAL SQ SCH ×3 (05:50→21:50)
[2021-07-09] MEDS: INSULIN SLIDING SCALE (NOVOLOG) 1 VIAL SQ SCH ×2 (06:34→16:31)
[2021-07-09 08:36] LABS: HEMATOCRIT 27.9 % (32.4-45.2); HEMOGLOBIN 9.5 GM/dL (10.7-15.3); MCH 29.5 pg (25.7-33.7); MCHC 34.1 g/dl (32.0-36.0); MEAN CELL VOLUME 86.4 fl (80-96); MEAN PLT VOLUME 8.2 fl (7.5-11.1); PLATELET COUNT 197 10^3/uL (134-434); RBC 3.23 M/mm3 (3.60-5.2); RDW 15.6 % (11.6-15.6); WHITE BLOOD COUNT 7.1 K/mm3 (4.0-10.0)
[2021-07-09] MEDS: METOPROLOL TARTRATE 5 MG/5 ML VIAL IVPUSH PRN (08:46)
[2021-07-09 08:52] LABS: BLOOD UREA NITROGEN 31.5 mg/dL (7-18); CALCIUM 7.9 mg/dL (8.5-10.1)
[2021-07-09 08:53] LABS: ALBUMIN 2.3 g/dl (3.4-5.0)
[2021-07-09 08:56] LABS: CREATININE 1.1 mg/dL (0.55-1.3)
[2021-07-09 08:57] LABS: BILIRUBIN,TOTAL 0.5 mg/dL (0.2-1); TOT PROT 6.1 g/dl (6.4-8.2)
[2021-07-09] MEDS: LOSARTAN POTASSIUM 50 MG TABLET PEG SCH (11:08)
[2021-07-09] MEDS: SERTRALINE HCL 50 MG TABLET (FP) GT SCH (11:08)
[2021-07-09] MEDS: ASPIRIN 81 MG CHEWABLE TABLETS GT SCH (11:08)
[2021-07-09 11:44] LABS: ANISOCYTOSIS 0; HELMET CELLS 0; HOWELL-JOLLY BODIES 0; MACROCYTOSIS 0; OVALOCYTE 0; PLATELET ESTIMATE NORMAL; ROULEAU 0; SICKELED CELLS 0; TARGET CELLS 0; TEAR DROP CELLS 0; TOXIC GRANULATION 0
[2021-07-09] MEDS: D5-1/2NS+20 MEQ KCL - 20 MEQ/1,000 ML INFUS.BAG IV SCH (16:27)
[2021-07-10] MEDS: HEPARIN NA (PORCINE) 5,000 UNITS/ML 1ML VIAL SQ SCH ×3 (05:59→22:45)
[2021-07-10] MEDS: D5-1/2NS+20 MEQ KCL - 20 MEQ/1,000 ML INFUS.BAG IV SCH (06:00)
[2021-07-10] MEDS: INSULIN SLIDING SCALE (NOVOLOG) 1 VIAL SQ SCH ×2 (06:40→17:57)
[2021-07-10] MEDS: METOPROLOL TARTRATE 50 MG TABLET (FP) PEG SCH ×2 (09:32→22:45)
[2021-07-10] MEDS: SERTRALINE HCL 50 MG TABLET (FP) GT SCH (09:32)
[2021-07-10] MEDS: ASPIRIN 81 MG CHEWABLE TABLETS GT SCH (09:32)
[2021-07-10] MEDS: LOSARTAN POTASSIUM 50 MG TABLET PEG SCH (09:32)
[2021-07-10] MEDS: levETIRAcetam 250 MG TABLET PO SCH ×2 (10:37→22:45)
[2021-07-10] MEDS: ATORVASTATIN CA 20 MG TABLET (FP) GT SCH (22:45)
[2021-07-11] MEDS: METOPROLOL TARTRATE 5 MG/5 ML VIAL IVPUSH PRN (02:33)
[2021-07-11] MEDS: HEPARIN NA (PORCINE) 5,000 UNITS/ML 1ML VIAL SQ SCH ×3 (05:35→22:00)
[2021-07-11] MEDS: ALBUTEROL SO4 2.5/IPRATROPIUM 0.5 INH SOL 3 ML VIAL.NEB. NEB PRN (06:00)
[2021-07-11] MEDS: INSULIN SLIDING SCALE (NOVOLOG) 1 VIAL SQ SCH ×2 (06:11→17:14)
[2021-07-11 08:09] LABS: BASO % 1.1 % (0-2.0); HEMATOCRIT 25.7 % (32.4-45.2); HEMOGLOBIN 8.9 GM/dL (10.7-15.3); MCH 29.9 pg (25.7-33.7); MCHC 34.5 g/dl (32.0-36.0); MEAN CELL VOLUME 86.7 fl (80-96); MEAN PLT VOLUME 9.1 fl (7.5-11.1); MONO % 8.2 % (3.8-10.2); NEUT % 62.7 % (42.8-82.8); PLATELET COUNT 175 10^3/uL (134-434); RBC 2.96 M/mm3 (3.60-5.2); RDW 15.1 % (11.6-15.6); WHITE BLOOD COUNT 5.3 K/mm3 (4.0-10.0)
[2021-07-11 09:43] LABS: ALBUMIN 2.2 g/dl (3.4-5.0); BILIRUBIN,TOTAL 0.5 mg/dL (0.2-1); BLOOD UREA NITROGEN 21.3 mg/dL (7-18); CALCIUM 7.4 mg/dL (8.5-10.1); CREATININE 1.3 mg/dL (0.55-1.3); TOT PROT 5.8 g/dl (6.4-8.2)
[2021-07-11] MEDS: levETIRAcetam 250 MG TABLET PO SCH ×2 (10:07→21:55)
[2021-07-11] MEDS: LOSARTAN POTASSIUM 50 MG TABLET PEG SCH (10:07)
[2021-07-11] MEDS: ASPIRIN 81 MG CHEWABLE TABLETS GT SCH (10:07)
[2021-07-11] MEDS: SERTRALINE HCL 50 MG TABLET (FP) GT SCH (10:07)
[2021-07-11] MEDS: METOPROLOL TARTRATE 50 MG TABLET (FP) PEG SCH (10:07)
[2021-07-11] MEDS: amLODIPine BESYLATE 5 MG TABLET (FP) PEG SCH (14:08)
[2021-07-11] MEDS: ATORVASTATIN CA 20 MG TABLET (FP) GT SCH (21:54)
[2021-07-12] MEDS: METOPROLOL TARTRATE 50 MG TABLET (FP) PEG SCH ×3 (01:21→22:59)
[2021-07-12] MEDS: INSULIN SLIDING SCALE (NOVOLOG) 1 VIAL SQ SCH ×2 (06:09→17:10)
[2021-07-12] MEDS: HEPARIN NA (PORCINE) 5,000 UNITS/ML 1ML VIAL SQ SCH ×3 (06:34→22:59)
[2021-07-12] MEDS ORDERED: levETIRAcetam 250 MG TABLET PO SCH (14:03)
[2021-07-12] MEDS: ASPIRIN 81 MG CHEWABLE TABLETS GT SCH (14:41)
[2021-07-12] MEDS: SERTRALINE HCL 50 MG TABLET (FP) GT SCH (14:42)
[2021-07-12] MEDS: amLODIPine BESYLATE 5 MG TABLET (FP) PEG SCH (14:42)
[2021-07-12] MEDS: LOSARTAN POTASSIUM 50 MG TABLET PEG SCH (14:43)
[2021-07-12] MEDS: levETIRAcetam 250 MG TABLET PO SCH (14:44)
[2021-07-12] MEDS: ALBUTEROL SO4 2.5/IPRATROPIUM 0.5 INH SOL 3 ML VIAL.NEB. NEB PRN (20:31)
[2021-07-12] MEDS ORDERED: PT OWN MED DRAWER 7, Y5N ONE (21:17)
[2021-07-12] MEDS: ATORVASTATIN CA 20 MG TABLET (FP) GT SCH (22:59)
[2021-07-12] MEDS: levETIRAcetam 500 MG/5 ML ORAL SOLUTION (UNIT-DOSE CUPS) GT SCH (22:59)
[2021-07-13] MEDS: INSULIN SLIDING SCALE (NOVOLOG) 1 VIAL SQ SCH ×2 (06:11→16:28)
[2021-07-13] MEDS: HEPARIN NA (PORCINE) 5,000 UNITS/ML 1ML VIAL SQ SCH ×3 (06:12→21:10)
[2021-07-13] MEDS ORDERED: PT OWN MED DRAWER 7, Y5N ONE (09:02)
[2021-07-13] MEDS: METOPROLOL TARTRATE 50 MG TABLET (FP) PEG SCH ×2 (09:44→21:11)
[2021-07-13] MEDS: amLODIPine BESYLATE 5 MG TABLET (FP) PEG SCH (09:44)
[2021-07-13] MEDS: levETIRAcetam 500 MG/5 ML ORAL SOLUTION (UNIT-DOSE CUPS) GT SCH ×2 (09:44→21:11)
[2021-07-13] MEDS: ASPIRIN 81 MG CHEWABLE TABLETS GT SCH (09:44)
[2021-07-13] MEDS: SERTRALINE HCL 50 MG TABLET (FP) GT SCH (09:44)
[2021-07-13] MEDS: LOSARTAN POTASSIUM 50 MG TABLET PEG SCH (09:44)
[2021-07-13 11:33] LABS: HEMATOCRIT 29.2 % (32.4-45.2); HEMOGLOBIN 9.8 GM/dL (10.7-15.3); MCHC 33.4 g/dl (32.0-36.0); MEAN CELL VOLUME 86.9 fl (80-96); MEAN PLT VOLUME 8.1 fl (7.5-11.1); PLATELET COUNT 195 10^3/uL (134-434); RBC 3.36 M/mm3 (3.60-5.2); WHITE BLOOD COUNT 4.9 K/mm3 (4.0-10.0)
[2021-07-13] MEDS: LORazepam 2 MG/ML SDV VIAL IVPUSH PRN (15:24)
[2021-07-13] MEDS: ATORVASTATIN CA 20 MG TABLET (FP) GT SCH (21:11)
[2021-07-14] MEDS: LORazepam 2 MG/ML SDV VIAL IVPUSH PRN ×3 (00:28→17:16)
[2021-07-14] MEDS: INSULIN SLIDING SCALE (NOVOLOG) 1 VIAL SQ SCH ×2 (06:17→17:13)
[2021-07-14] MEDS: HEPARIN NA (PORCINE) 5,000 UNITS/ML 1ML VIAL SQ SCH ×3 (06:18→22:20)
[2021-07-14] MEDS: ASPIRIN 81 MG CHEWABLE TABLETS GT SCH (10:43)
[2021-07-14] MEDS: METOPROLOL TARTRATE 50 MG TABLET (FP) PEG SCH ×2 (10:43→22:20)
[2021-07-14] MEDS: LOSARTAN POTASSIUM 50 MG TABLET PEG SCH (10:43)
[2021-07-14] MEDS: amLODIPine BESYLATE 5 MG TABLET (FP) PEG SCH (10:43)
[2021-07-14] MEDS: SERTRALINE HCL 50 MG TABLET (FP) GT SCH (10:43)
[2021-07-14] MEDS: levETIRAcetam 500 MG/5 ML ORAL SOLUTION (UNIT-DOSE CUPS) GT SCH ×2 (10:44→22:20)
[2021-07-14] MEDS: ATORVASTATIN CA 20 MG TABLET (FP) GT SCH (22:20)
[2021-07-15 06:06] VITALS: TEMP 97.9
[2021-07-15] MEDS: INSULIN SLIDING SCALE (NOVOLOG) 1 VIAL SQ SCH (06:33)
[2021-07-15] MEDS: HEPARIN NA (PORCINE) 5,000 UNITS/ML 1ML VIAL SQ SCH (06:33)
[2021-07-15] MEDS: LOSARTAN POTASSIUM 50 MG TABLET PEG SCH (10:26)
[2021-07-15] MEDS: ASPIRIN 81 MG CHEWABLE TABLETS GT SCH (10:26)
[2021-07-15] MEDS: SERTRALINE HCL 50 MG TABLET (FP) GT SCH (10:26)
[2021-07-15] MEDS: METOPROLOL TARTRATE 50 MG TABLET (FP) PEG SCH (10:26)
[2021-07-15] MEDS: levETIRAcetam 500 MG/5 ML ORAL SOLUTION (UNIT-DOSE CUPS) GT SCH (10:26)
[2021-07-15] MEDS: amLODIPine BESYLATE 5 MG TABLET (FP) PEG SCH (10:26)
[2021-07-15 12:50] VITALS: BP 159/76; PULSE 69
== END 2021-07-15 15:23 | DRG 393 ==
LOC: JER 03:54 → INTOOBSV 05:44 → JERBED 05:44 → J4S 07-09 01:52 → OBSVTOIN 07-11 11:33 → J6S 07-13 13:47
PROVIDERS: ADMIT Internal Medicine; ATTEND Internal Medicine
PROC: 3E0G76Z Introduction of Nutritional Substance into Upper GI, Via Natural or Artificial Opening (ICD-10-PCS; principal; 2021-07-12)
DX: K94.23 Gastrostomy malfunction (principal); R53.2 Functional quadriplegia; R47.01 Aphasia; Y83.8 Other surgical procedures as the cause of abnormal reaction of the patient, or of later complication, without mention of misadventure at the time of the procedure; E78.5 Hyperlipidemia, unspecified; G40.909 Epilepsy, unspecified, not intractable, without status epilepticus; I69.391 Dysphagia following cerebral infarction; R13.10 Dysphagia, unspecified; I25.10 Atherosclerotic heart disease of native coronary artery without angina pectoris; I12.9 Hypertensive chronic kidney disease with stage 1 through stage 4 chronic kidney disease, or unspecified chronic kidney disease; N18.9 Chronic kidney disease, unspecified; E11.22 Type 2 diabetes mellitus with diabetic chronic kidney disease; G30.9 Alzheimer's disease, unspecified; F02.80 Dementia in other diseases classified elsewhere, unspecified severity, without behavioral disturbance, psychotic disturbance, mood disturbance, and anxiety; D64.9 Anemia, unspecified
CPT/HCPCS: 36415; 70450-TC; 71045-TC-FY; 73030-TC-RT-FY; 73070-TC-RT-FY; 73090-TC-RT-FY; 74018-TC-FY; 80053; 82962; 85025; 85027; 85610; 85730; 86850; 86900; 86901; 93005; 93010; 94640; 97116-GP; 97161-GP; 99285-25; C9803; G0378; J0131; J1644; U0003; U0005

== ENCOUNTER 2021-07-17 03:55 | Emergency (ER) | payer OTHER ==
[2021-07-17 04:12] VITALS: BMI 22.8
[2021-07-17 05:44] LABS: BASO % 1.1 % (0-2.0); EOS % 5.8 % (0-4.5); HEMATOCRIT 30.3 % (32.4-45.2); HEMOGLOBIN 10.3 GM/dL (10.7-15.3); LYMPH % 24.1 % (8-40); MCH 29.4 pg (25.7-33.7); MCHC 33.8 g/dl (32.0-36.0); MEAN CELL VOLUME 86.8 fl (80-96); MEAN PLT VOLUME 8.6 fl (7.5-11.1); MONO % 6.7 % (3.8-10.2); NEUT % 62.3 % (42.8-82.8); PLATELET COUNT 237 10^3/uL (134-434); RDW 15.1 % (11.6-15.6); WHITE BLOOD COUNT 7.2 K/mm3 (4.0-10.0)
[2021-07-17 06:02] LABS: CALCIUM 8.2 mg/dL (8.5-10.1)
[2021-07-17 06:03] LABS: BLOOD UREA NITROGEN 39.9 mg/dL (7-18)
[2021-07-17 06:06] LABS: CREATININE 1.3 mg/dL (0.55-1.3)
[2021-07-17 06:17] VITALS: TEMP 97.9
[2021-07-17] MEDS ORDERED: ASPIRIN 81 MG CHEWABLE TABLETS PO ONE (14:35)
[2021-07-17] MEDS ORDERED: LOSARTAN POTASSIUM 50 MG TABLET PEG ONE (14:36)
[2021-07-17] MEDS ORDERED: levETIRAcetam 500 MG/5 ML ORAL SOLUTION (UNIT-DOSE CUPS) PO ONE (14:37)
[2021-07-17] MEDS ORDERED: SERTRALINE HCL 50 MG TABLET (FP) PO ONE (14:37)
[2021-07-17] MEDS ORDERED: amLODIPine BESYLATE 5 MG TABLET (FP) PEG ONE (14:38)
[2021-07-17] MEDS ORDERED: METOPROLOL TARTRATE 50 MG TABLET (FP) PEG ONE (14:39)
[2021-07-17] MEDS ORDERED: amLODIPine BESYLATE 5 MG TABLET (FP) ONE (15:22)
[2021-07-17] MEDS ORDERED: LOSARTAN POTASSIUM 50 MG TABLET ONE (15:23)
[2021-07-17] MEDS ORDERED: METOPROLOL TARTRATE 50 MG TABLET (FP) ONE (15:23)
[2021-07-17 15:34] VITALS: BP 181/65; PULSE 65
== END 2021-07-17 15:38 | disposition home or self-care (01) ==
LOC: JER 03:55
DX: Z43.1 Encounter for attention to gastrostomy (principal)
CPT/HCPCS: 36415; 71045-TC-FY; 74018-TC-FY; 80048; 82962; 85025; 93005; 93010; 99284-25; C9803; U0003; U0005

== ENCOUNTER 2021-09-08 09:53 | Inpatient (IN) | payer OTHER ==
[2021-09-08 10:34] VITALS: BMI 22.4
[2021-09-08 10:59] LABS: BASO % 0.6 % (0-2.0); HEMATOCRIT 32.1 % (32.4-45.2); HEMOGLOBIN 10.5 GM/dL (10.7-15.3); LYMPH % 15.1 % (8-40); MCH 28.5 pg (25.7-33.7); MCHC 32.8 g/dl (32.0-36.0); MEAN CELL VOLUME 86.9 fl (80-96); MEAN PLT VOLUME 7.4 fl (7.5-11.1); MONO % 6.3 % (3.8-10.2); PLATELET COUNT 221 10^3/uL (134-434); RBC 3.69 M/mm3 (3.60-5.2); RDW 13.8 % (11.6-15.6); VENOUS BASE EXCESS -6.3 mmol/L (-2-2); VENOUS O2 SATURATION 66.8 % (70-80); VENOUS PCO2 37.5 mmHg (38-52); VENOUS PH 7.325 (7.310-7.410); WHITE BLOOD COUNT 6.7 K/mm3 (4.0-10.0)
[2021-09-08 11:09] LABS: INR 1.02 (0.83-1.09); PROTHROMBIN TIME (PATIENT) 11.7 SEC (9.7-13.0)
[2021-09-08 11:11] LABS: ACTIVATED PTT 32.8 SECONDS (25.2-36.5)
[2021-09-08 11:24] LABS: CALCIUM 9.2 mg/dL (8.5-10.1); EPI CELLS 3 /uL (0-25.1); HYALINE CASTS 1 /uL (0-3.1); URINE APPEARANCE CLEAR; URINE BACTERIA 2 /uL (0-1359); URINE BILIRUBIN NEGATIVE (NEGATIVE); URINE COLOR YELLOW; URINE GLUCOSE (UA) TRACE (NEGATIVE); URINE KETONE NEGATIVE (NEGATIVE); URINE LEUK ESTERASE NEGATIVE (NEGATIVE); URINE NITRITE NEGATIVE (NEGATIVE); URINE PROTEIN 2+ (NEGATIVE); URINE RBC 11 /uL (0-23.9); URINE UROBILINOGEN 0.2 mg/dL (0.2-1.0); URINE WBC 3 /uL (0-25.8)
[2021-09-08 11:25] LABS: ALBUMIN 3.6 g/dl (3.4-5.0); BLOOD UREA NITROGEN 46.6 mg/dL (7-18); MAGNESIUM 2.3 mg/dL (1.8-2.4)
[2021-09-08 11:28] LABS: CREATININE 1.4 mg/dL (0.55-1.3)
[2021-09-08 11:29] LABS: BILIRUBIN,TOTAL 0.6 mg/dL (0.2-1)
[2021-09-08 11:30] LABS: TOT PROT 7.4 g/dl (6.4-8.2)
[2021-09-08] MEDS ORDERED: levETIRAcetam 500 MG/5 ML INJECTION VIAL IVPB ONE ×2 (13:30→14:35)
[2021-09-08] MEDS ORDERED: levETIRAcetam 500 MG/5 ML ORAL SOLUTION (UNIT-DOSE CUPS) PO SCH (22:00)
[2021-09-08] MEDS ORDERED: ATORVASTATIN CA 20 MG TABLET (FP) PO SCH (22:00)
[2021-09-08] MEDS: levETIRAcetam 500 MG/5 ML INJECTION VIAL IVPB SCH (22:08)
[2021-09-08] MEDS: METOPROLOL TARTRATE 50 MG TABLET (FP) PO SCH (22:35)
[2021-09-08] MEDS ORDERED: ACETAMINOPHEN 1000 MG/100 ML BAG IVPB ONE (23:44)
[2021-09-09] MEDS: INSULIN SLIDING SCALE (NOVOLOG) 1 VIAL SQ SCH ×2 (06:12→17:16)
[2021-09-09 09:01] LABS: BASO % 0.5 % (0-2.0); EOS % 1.1 % (0-4.5); HEMATOCRIT 29.4 % (32.4-45.2); HEMOGLOBIN 9.6 GM/dL (10.7-15.3); LYMPH % 21.2 % (8-40); MCH 28.6 pg (25.7-33.7); MCHC 32.6 g/dl (32.0-36.0); MEAN CELL VOLUME 87.8 fl (80-96); MEAN PLT VOLUME 7.7 fl (7.5-11.1); MONO % 8.4 % (3.8-10.2); NEUT % 68.8 % (42.8-82.8); PLATELET COUNT 203 10^3/uL (134-434); RBC 3.35 M/mm3 (3.60-5.2); RDW 14.1 % (11.6-15.6); WHITE BLOOD COUNT 6.5 K/mm3 (4.0-10.0)
[2021-09-09 09:13] LABS: CALCIUM 8.5 mg/dL (8.5-10.1)
[2021-09-09 09:14] LABS: ALBUMIN 3.2 g/dl (3.4-5.0); BLOOD UREA NITROGEN 41.8 mg/dL (7-18)
[2021-09-09 09:17] LABS: CREATININE 1.3 mg/dL (0.55-1.3)
[2021-09-09 09:19] LABS: BILIRUBIN,TOTAL 0.4 mg/dL (0.2-1); TOT PROT 6.8 g/dl (6.4-8.2)
[2021-09-09] MEDS ORDERED: SERTRALINE HCL 50 MG TABLET (FP) PO SCH (10:00)
[2021-09-09] MEDS ORDERED: ASPIRIN 81 MG CHEWABLE TABLETS PO SCH (10:00)
[2021-09-09] MEDS ORDERED: ENOXAPARIN NA (PORCINE) 40 MG/0.4 ML DISP.SYRIN SQ SCH (10:00)
[2021-09-09] MEDS ORDERED: LOSARTAN POTASSIUM 50 MG TABLET PO SCH (10:00)
[2021-09-09] MEDS: METOPROLOL TARTRATE 50 MG TABLET (FP) PO SCH ×2 (10:01→21:58)
[2021-09-09] MEDS: levETIRAcetam 500 MG/5 ML INJECTION VIAL IVPB SCH ×2 (10:02→21:57)
[2021-09-09] MEDS: ATORVASTATIN CA 20 MG TABLET (FP) PO SCH (21:58)
[2021-09-10] MEDS: INSULIN SLIDING SCALE (NOVOLOG) 1 VIAL SQ SCH ×2 (06:28→17:00)
[2021-09-10] MEDS: LOSARTAN POTASSIUM 50 MG TABLET PO SCH (09:36)
[2021-09-10] MEDS: ASPIRIN 81 MG CHEWABLE TABLETS PO SCH (09:36)
[2021-09-10] MEDS: METOPROLOL TARTRATE 50 MG TABLET (FP) PO SCH ×2 (09:36→22:14)
[2021-09-10] MEDS: SERTRALINE HCL 25 MG TABLET (FP) PO SCH (09:36)
[2021-09-10] MEDS: levETIRAcetam 500 MG/5 ML INJECTION VIAL IVPB SCH ×2 (09:36→22:13)
[2021-09-10] MEDS: ENOXAPARIN NA (PORCINE) 40 MG/0.4 ML DISP.SYRIN SQ SCH (09:36)
[2021-09-10] MEDS ORDERED: SERTRALINE HCL 50 MG TABLET (FP) PO SCH (10:00)
[2021-09-10] MEDS ORDERED: SOTROVIMAB 500 MG in SODIUM CHLORIDE 100 ML IVPB ONE (11:00)
[2021-09-10] MEDS: ATORVASTATIN CA 20 MG TABLET (FP) PO SCH (22:13)
[2021-09-11] MEDS: INSULIN SLIDING SCALE (NOVOLOG) 1 VIAL SQ SCH ×2 (06:41→16:29)
[2021-09-11] MEDS: levETIRAcetam 500 MG/5 ML INJECTION VIAL IVPB SCH ×2 (10:13→21:16)
[2021-09-11] MEDS: ENOXAPARIN NA (PORCINE) 40 MG/0.4 ML DISP.SYRIN SQ SCH (10:34)
[2021-09-11] MEDS: METOPROLOL TARTRATE 50 MG TABLET (FP) PO SCH ×2 (10:50→21:16)
[2021-09-11] MEDS: ASPIRIN 81 MG CHEWABLE TABLETS PO SCH (10:50)
[2021-09-11] MEDS: SERTRALINE HCL 25 MG TABLET (FP) PO SCH (10:50)
[2021-09-11] MEDS: LOSARTAN POTASSIUM 50 MG TABLET PO SCH (10:50)
[2021-09-11] MEDS: ATORVASTATIN CA 20 MG TABLET (FP) PO SCH (21:16)
[2021-09-12] MEDS: INSULIN SLIDING SCALE (NOVOLOG) 1 VIAL SQ SCH ×2 (06:25→16:40)
[2021-09-12] MEDS: METOPROLOL TARTRATE 50 MG TABLET (FP) PO SCH ×2 (11:04→22:37)
[2021-09-12] MEDS: LOSARTAN POTASSIUM 50 MG TABLET PO SCH (11:04)
[2021-09-12] MEDS: SERTRALINE HCL 25 MG TABLET (FP) PO SCH (11:05)
[2021-09-12] MEDS: levETIRAcetam 500 MG/5 ML INJECTION VIAL IVPB SCH ×2 (11:05→22:37)
[2021-09-12] MEDS: ENOXAPARIN NA (PORCINE) 40 MG/0.4 ML DISP.SYRIN SQ SCH (11:05)
[2021-09-12] MEDS: ASPIRIN 81 MG CHEWABLE TABLETS PO SCH (11:05)
[2021-09-12] MEDS: ATORVASTATIN CA 20 MG TABLET (FP) PO SCH (22:37)
[2021-09-13] MEDS: INSULIN SLIDING SCALE (NOVOLOG) 1 VIAL SQ SCH ×2 (06:44→18:20)
[2021-09-13] MEDS: SERTRALINE HCL 25 MG TABLET (FP) PO SCH (10:03)
[2021-09-13] MEDS: ASPIRIN 81 MG CHEWABLE TABLETS PO SCH (10:03)
[2021-09-13] MEDS: LOSARTAN POTASSIUM 50 MG TABLET PO SCH (10:03)
[2021-09-13] MEDS: ENOXAPARIN NA (PORCINE) 40 MG/0.4 ML DISP.SYRIN SQ SCH (10:03)
[2021-09-13] MEDS: METOPROLOL TARTRATE 50 MG TABLET (FP) PO SCH ×2 (10:06→22:22)
[2021-09-13] MEDS: levETIRAcetam 500 MG/5 ML INJECTION VIAL IVPB SCH ×2 (11:31→22:22)
[2021-09-13 12:51] LABS: BASO % 1.1 % (0-2.0); EOS % 2.3 % (0-4.5); HEMATOCRIT 29.7 % (32.4-45.2); HEMOGLOBIN 9.9 GM/dL (10.7-15.3); LYMPH % 26.7 % (8-40); MCH 28.8 pg (25.7-33.7); MCHC 33.4 g/dl (32.0-36.0); MEAN CELL VOLUME 86.2 fl (80-96); MONO % 4.8 % (3.8-10.2); NEUT % 65.1 % (42.8-82.8); PLATELET COUNT 189 10^3/uL (134-434); RBC 3.44 M/mm3 (3.60-5.2); RDW 13.6 % (11.6-15.6); WHITE BLOOD COUNT 6.1 K/mm3 (4.0-10.0)
[2021-09-13 13:04] LABS: BLOOD UREA NITROGEN 33.8 mg/dL (7-18)
[2021-09-13 13:07] LABS: CALCIUM 8.4 mg/dL (8.5-10.1); CREATININE 1.4 mg/dL (0.55-1.3)
[2021-09-13] MEDS: ATORVASTATIN CA 20 MG TABLET (FP) PO SCH (22:22)
[2021-09-14] MEDS: SERTRALINE HCL 25 MG TABLET (FP) PO SCH (09:50)
[2021-09-14] MEDS: ENOXAPARIN NA (PORCINE) 40 MG/0.4 ML DISP.SYRIN SQ SCH (09:50)
[2021-09-14] MEDS: ASPIRIN 81 MG CHEWABLE TABLETS PO SCH (09:50)
[2021-09-14] MEDS: METOPROLOL TARTRATE 50 MG TABLET (FP) PO SCH (09:50)
[2021-09-14] MEDS: LOSARTAN POTASSIUM 50 MG TABLET PO SCH (09:51)
[2021-09-14] MEDS ORDERED: levETIRAcetam 250 MG TABLET PO SCH (10:00)
[2021-09-14] MEDS: INSULIN SLIDING SCALE (NOVOLOG) 1 VIAL SQ SCH (12:02)
[2021-09-14 15:04] VITALS: BP 133/58; PULSE 59; TEMP 97.2
[2021-09-15 15:08] LABS: SARS-CoV-2 NAA Detected (Not Detected)
== END 2021-09-14 16:17 | DRG 100 ==
LOC: JER 09:53 → JERBED 10:50 → J4S 15:19
PROVIDERS: ADMIT Internal Medicine; ATTEND Internal Medicine
PROC: XW033H6 Introduction of Other New Technology Monoclonal Antibody into Peripheral Vein, Percutaneous Approach, New Technology Group 6 (ICD-10-PCS; principal; 2021-09-08)
DX: R56.9 Unspecified convulsions (principal); U07.1 COVID-19; R53.2 Functional quadriplegia; G81.91 Hemiplegia, unspecified affecting right dominant side; R47.01 Aphasia; I10 Essential (primary) hypertension; E11.9 Type 2 diabetes mellitus without complications; E78.5 Hyperlipidemia, unspecified; G93.89 Other specified disorders of brain; K21.9 Gastro-esophageal reflux disease without esophagitis
CPT/HCPCS: 36415; 70450-TC; 71045-TC-FY; 72125-TC; 73110-TC-RT-FY; 73130-TC-RT-FY; 80048; 80053; 80177; 80307; 81003; 82550; 82803; 82962; 83735; 84484; 85025; 85610; 85730; 86850; 86900; 86901; 87086; 93005; 93010; 97116-GP; 97162-GP; 99285-25; C9803; M0247; Q0247; U0003; U0005

== ENCOUNTER 2022-08-25 15:44 | Inpatient (IN) | payer OTHER ==
[2022-08-25 17:56] LABS: HEMATOCRIT 28.1 % (32.4-45.2); HEMOGLOBIN 9.2 GM/dL (10.7-15.3); MCH 30.5 pg (25.7-33.7); MCHC 32.6 g/dl (32.0-36.0); MEAN CELL VOLUME 93.5 fl (80-96); MEAN PLT VOLUME 9.3 fl (7.5-11.1); PLATELET COUNT 218 10^3/uL (134-434); RDW 13.8 % (11.6-15.6); WHITE BLOOD COUNT 5.9 K/mm3 (4.0-10.0)
[2022-08-25] MEDS ORDERED: levETIRAcetam 500 MG TABLET (FP) PO ONE (18:07)
[2022-08-25] MEDS: levETIRAcetam 500 MG TABLET (FP) PO SCH ×2 (18:10→21:28)
[2022-08-25 18:16] LABS: BLOOD UREA NITROGEN 43.6 mg/dL (7-18); CALCIUM 8.3 mg/dL (8.5-10.1)
[2022-08-25 18:17] LABS: ALBUMIN 3.5 g/dl (3.4-5.0)
[2022-08-25 18:20] LABS: CREATININE 1.7 mg/dL (0.55-1.3)
[2022-08-25 18:22] LABS: BILIRUBIN,TOTAL 0.6 mg/dL (0.2-1)
[2022-08-25] MEDS ORDERED: LACTATED RINGERS SOLUTION 1,000 ML/1,000 ML INFUS.BAG IV SCH (18:30)
[2022-08-25] MEDS ORDERED: LACTATED RINGERS SOLUTION 1000 ML INFUS.BAG IV ONE (18:33)
[2022-08-25] MEDS ORDERED: METOPROLOL TARTRATE 50 MG TABLET (FP) ONE (19:27)
[2022-08-25] MEDS: METOPROLOL TARTRATE 50 MG TABLET (FP) PO SCH ×2 (19:29→21:13)
[2022-08-25 19:40] LABS: EPI CELLS 5 /uL (0-25.1); HYALINE CASTS 0 /uL (0-3.1); PH,URINE 5.5 (5.0-8.0); URINE APPEARANCE CLOUDY; URINE BACTERIA >9,000 /uL (0-1359); URINE BILIRUBIN NEGATIVE (NEGATIVE); URINE COLOR YELLOW; URINE GLUCOSE (UA) TRACE (NEGATIVE); URINE KETONE NEGATIVE (NEGATIVE); URINE LEUK ESTERASE 3+ (NEGATIVE); URINE NITRITE POSITIVE (NEGATIVE); URINE PROTEIN 2+ (NEGATIVE); URINE RBC 24 /uL (0-23.9); URINE UROBILINOGEN 0.2 mg/dL (0.2-1.0); URINE WBC 1773 /uL (0-25.8)
[2022-08-25] MEDS ORDERED: morphine CARPU-JECT 2 MG/1 ML DISP.SYRIN IVPUSH ONE (19:48)
[2022-08-25] MEDS ORDERED: FAMOTIDINE 20 MG/50 ML IVPB 20 MG/50 ML MG IVPB ONE ×2 (19:49→19:51)
[2022-08-25] MEDS ORDERED: clonazePAM 0.5 MG TABLET PO SCH (21:01)
[2022-08-25] MEDS ORDERED: HALOPERIDOL LACTATE 5 MG/ML IM ONE ×2 (21:07→21:15)
[2022-08-25] MEDS ORDERED: clonazePAM 0.5 MG TABLET ONE (21:15)
[2022-08-25] MEDS: clonazePAM 0.5 MG TABLET PO SCH (21:27)
[2022-08-26 07:44] LABS: BASO % 1.2 % (0-2.0); EOS % 4.8 % (0-4.5); HEMATOCRIT 27.3 % (32.4-45.2); HEMOGLOBIN 8.8 GM/dL (10.7-15.3); LYMPH % 25.8 % (8-40); MCH 30.2 pg (25.7-33.7); MCHC 32.4 g/dl (32.0-36.0); MEAN CELL VOLUME 93.2 fl (80-96); MEAN PLT VOLUME 7.8 fl (7.5-11.1); MONO % 7.5 % (3.8-10.2); NEUT % 60.7 % (42.8-82.8); PLATELET COUNT 179 10^3/uL (134-434); RBC 2.92 M/mm3 (3.60-5.2); RDW 13.6 % (11.6-15.6); WHITE BLOOD COUNT 4.9 K/mm3 (4.0-10.0)
[2022-08-26 08:03] LABS: BLOOD UREA NITROGEN 38.3 mg/dL (7-18); CALCIUM 8.2 mg/dL (8.5-10.1)
[2022-08-26 08:04] LABS: ALBUMIN 3.2 g/dl (3.4-5.0)
[2022-08-26 08:06] LABS: CREATININE 1.5 mg/dL (0.55-1.3)
[2022-08-26 08:07] LABS: BILIRUBIN,TOTAL 0.4 mg/dL (0.2-1); TOT PROT 6.6 g/dl (6.4-8.2)
[2022-08-26] MEDS ORDERED: clonazePAM 0.5 MG TABLET ONE (10:32)
[2022-08-26] MEDS ORDERED: levETIRAcetam 500 MG TABLET (FP) PO ONE (10:32)
[2022-08-26] MEDS ORDERED: CEFTRIAXONE 1 GM/50 ML BAG ONE (10:33)
[2022-08-26] MEDS: clonazePAM 0.5 MG TABLET PO SCH (10:49)
[2022-08-26] MEDS: levETIRAcetam 500 MG TABLET (FP) PO SCH (10:49)
[2022-08-26] MEDS: CEFTRIAXONE 1 GM in DEXTROSE 5%-WATER - 50 ML IVPB SCH (10:49)
[2022-08-27] MEDS: CEFTRIAXONE 1 GM in DEXTROSE 5%-WATER - 50 ML IVPB SCH (09:46)
[2022-08-27] MEDS: levETIRAcetam 500 MG TABLET (FP) PO SCH ×3 (09:47→21:31)
[2022-08-27] MEDS: clonazePAM 0.5 MG TABLET PO SCH ×3 (09:47→21:00)
[2022-08-27 11:02] VITALS: BMI 21.1
[2022-08-27] MEDS: INSULIN SLIDING SCALE (NOVOLOG) 1 VIAL SQ SCH ×2 (17:22→21:35)
[2022-08-27] MEDS ORDERED: HALOPERIDOL LACTATE 5 MG/ML IM ONE (19:50)
[2022-08-27] MEDS: FLUTICASONE/SALMETEROL 100 MCG/50 MCG DISKUS IH SCH (21:31)
[2022-08-27] MEDS: SENNOSIDES 8.6MG TABLET (FP) PO SCH (21:31)
[2022-08-28] MEDS: INSULIN SLIDING SCALE (NOVOLOG) 1 VIAL SQ SCH ×4 (06:16→22:16)
[2022-08-28] MEDS: FERROUS SO4 325 MG TABLET (FP) PO SCH (09:25)
[2022-08-28] MEDS: ASPIRIN 81 MG CHEWABLE TABLETS PO SCH (09:25)
[2022-08-28] MEDS: clonazePAM 0.5 MG TABLET PO SCH ×2 (09:25→22:08)
[2022-08-28] MEDS: amLODIPine BESYLATE 5 MG TABLET (FP) PO SCH (09:25)
[2022-08-28] MEDS: SERTRALINE HCL 50 MG TABLET (FP) PO SCH (09:25)
[2022-08-28] MEDS: CEFTRIAXONE 1 GM in DEXTROSE 5%-WATER - 50 ML IVPB SCH (09:26)
[2022-08-28] MEDS: FLUTICASONE/SALMETEROL 100 MCG/50 MCG DISKUS IH SCH ×2 (09:27→22:08)
[2022-08-28] MEDS: levETIRAcetam 500 MG TABLET (FP) PO SCH ×2 (09:27→22:08)
[2022-08-28 13:51] LABS: BASO % 1.3 % (0-2.0); EOS % 2.9 % (0-4.5); HEMATOCRIT 26.7 % (32.4-45.2); HEMOGLOBIN 8.5 GM/dL (10.7-15.3); LYMPH % 28.1 % (8-40); MCHC 31.9 g/dl (32.0-36.0); MEAN PLT VOLUME 9.3 fl (7.5-11.1); MONO % 5.2 % (3.8-10.2); NEUT % 62.5 % (42.8-82.8); PLATELET COUNT 193 10^3/uL (134-434); RBC 2.84 M/mm3 (3.60-5.2); RDW 14.3 % (11.6-15.6); WHITE BLOOD COUNT 4.7 K/mm3 (4.0-10.0)
[2022-08-28 14:01] LABS: CALCIUM 8.5 mg/dL (8.5-10.1)
[2022-08-28 14:02] LABS: ALBUMIN 3.2 g/dl (3.4-5.0); BLOOD UREA NITROGEN 33.7 mg/dL (7-18)
[2022-08-28 14:05] LABS: CREATININE 1.6 mg/dL (0.55-1.3)
[2022-08-28 14:06] LABS: TOT PROT 6.6 g/dl (6.4-8.2)
[2022-08-28 14:07] LABS: BILIRUBIN,TOTAL 0.3 mg/dL (0.2-1)
[2022-08-28] MEDS: SENNOSIDES 8.6MG TABLET (FP) PO SCH (22:16)
[2022-08-29] MEDS: INSULIN SLIDING SCALE (NOVOLOG) 1 VIAL SQ SCH ×4 (06:51→21:35)
[2022-08-29 08:29] LABS: BASO % 1.2 % (0-2.0); EOS % 4.8 % (0-4.5); HEMATOCRIT 23.4 % (32.4-45.2); HEMOGLOBIN 7.7 GM/dL (10.7-15.3); LYMPH % 33.1 % (8-40); MCH 30.5 pg (25.7-33.7); MCHC 32.8 g/dl (32.0-36.0); MEAN CELL VOLUME 93.2 fl (80-96); MEAN PLT VOLUME 8.8 fl (7.5-11.1); MONO % 6.2 % (3.8-10.2); NEUT % 54.7 % (42.8-82.8); PLATELET COUNT 191 10^3/uL (134-434); RBC 2.51 M/mm3 (3.60-5.2); RDW 13.8 % (11.6-15.6); WHITE BLOOD COUNT 5.9 K/mm3 (4.0-10.0)
[2022-08-29 09:16] LABS: BLOOD UREA NITROGEN 46.2 mg/dL (7-18); CALCIUM 8.3 mg/dL (8.5-10.1)
[2022-08-29 09:19] LABS: CREATININE 1.6 mg/dL (0.55-1.3)
[2022-08-29 09:21] LABS: BILIRUBIN,TOTAL 0.4 mg/dL (0.2-1); TOT PROT 6.1 g/dl (6.4-8.2)
[2022-08-29] MEDS: CEFTRIAXONE 1 GM in DEXTROSE 5%-WATER - 50 ML IVPB SCH (10:12)
[2022-08-29] MEDS: SERTRALINE HCL 50 MG TABLET (FP) PO SCH (10:12)
[2022-08-29] MEDS: clonazePAM 0.5 MG TABLET PO SCH (10:12)
[2022-08-29] MEDS: levETIRAcetam 500 MG TABLET (FP) PO SCH ×2 (10:12→21:35)
[2022-08-29] MEDS: ASPIRIN 81 MG CHEWABLE TABLETS PO SCH (10:12)
[2022-08-29] MEDS: FERROUS SO4 325 MG TABLET (FP) PO SCH (10:12)
[2022-08-29] MEDS: amLODIPine BESYLATE 5 MG TABLET (FP) PO SCH (10:12)
[2022-08-29] MEDS: FLUTICASONE/SALMETEROL 100 MCG/50 MCG DISKUS IH SCH ×2 (10:13→21:35)
[2022-08-29] MEDS: PANTOPRAZOLE 40 MG TABLET PO SCH (15:36)
[2022-08-29] MEDS: CEFUROXIME AXETIL 500 MG TABLET PO SCH (17:13)
[2022-08-29] MEDS ORDERED: IRON SUCROSE INJECTION 200 MG in SODIUM CHLORIDE 90 ML IVPB ONE (17:30)
[2022-08-29 19:19] LABS: HEMATOCRIT 25.5 % (32.4-45.2); HEMOGLOBIN 8.4 GM/dL (10.7-15.3); MCH 30.7 pg (25.7-33.7); MCHC 33.1 g/dl (32.0-36.0); MEAN CELL VOLUME 92.8 fl (80-96); PLATELET COUNT 190 10^3/uL (134-434); RBC 2.75 M/mm3 (3.60-5.2); RDW 14.3 % (11.6-15.6)
[2022-08-29] MEDS: SENNOSIDES 8.6MG TABLET (FP) PO SCH (21:35)
[2022-08-30] MEDS: INSULIN SLIDING SCALE (NOVOLOG) 1 VIAL SQ SCH ×2 (06:17→11:41)
[2022-08-30] MEDS: FERROUS SO4 325 MG TABLET (FP) PO SCH (08:19)
[2022-08-30 08:39] LABS: BASO % 1.1 % (0-2.0); EOS % 3.9 % (0-4.5); HEMATOCRIT 27.2 % (32.4-45.2); HEMOGLOBIN 9.2 GM/dL (10.7-15.3); MCH 31.1 pg (25.7-33.7); MCHC 33.7 g/dl (32.0-36.0); MEAN CELL VOLUME 92.3 fl (80-96); MEAN PLT VOLUME 9.2 fl (7.5-11.1); MONO % 7.5 % (3.8-10.2); NEUT % 56.5 % (42.8-82.8); PLATELET COUNT 194 10^3/uL (134-434); RBC 2.95 M/mm3 (3.60-5.2); RDW 13.8 % (11.6-15.6); WHITE BLOOD COUNT 7.3 K/mm3 (4.0-10.0)
[2022-08-30 09:22] LABS: ALBUMIN 3.5 g/dl (3.4-5.0); BLOOD UREA NITROGEN 41.8 mg/dL (7-18); CALCIUM 8.6 mg/dL (8.5-10.1)
[2022-08-30 09:25] LABS: CREATININE 1.5 mg/dL (0.55-1.3)
[2022-08-30 09:27] LABS: BILIRUBIN,TOTAL 0.4 mg/dL (0.2-1); TOT PROT 7.1 g/dl (6.4-8.2)
[2022-08-30] MEDS: amLODIPine BESYLATE 5 MG TABLET (FP) PO SCH (09:52)
[2022-08-30] MEDS: ASPIRIN 81 MG CHEWABLE TABLETS PO SCH (09:53)
[2022-08-30] MEDS: SERTRALINE HCL 50 MG TABLET (FP) PO SCH (09:53)
[2022-08-30] MEDS: FLUTICASONE/SALMETEROL 100 MCG/50 MCG DISKUS IH SCH (09:53)
[2022-08-30] MEDS: levETIRAcetam 500 MG TABLET (FP) PO SCH (09:53)
[2022-08-30] MEDS: PANTOPRAZOLE 40 MG TABLET PO SCH (09:53)
[2022-08-30] MEDS: CEFUROXIME AXETIL 500 MG TABLET PO SCH (09:55)
[2022-08-30 15:26] VITALS: BP 128/72; PULSE 74; RESP 20; TEMP 98.2
== END 2022-08-30 16:25 | DRG 689 ==
LOC: JER 15:44 → JERBED 20:54 → J4W 08-27 04:38
PROVIDERS: ADMIT Internal Medicine; ATTEND Family Medicine
DX: N39.0 Urinary tract infection, site not specified (principal); G93.41 Metabolic encephalopathy; F03.911 Unspecified dementia, unspecified severity, with agitation; I12.9 Hypertensive chronic kidney disease with stage 1 through stage 4 chronic kidney disease, or unspecified chronic kidney disease; E11.22 Type 2 diabetes mellitus with diabetic chronic kidney disease; N18.9 Chronic kidney disease, unspecified; R45.1 Restlessness and agitation; K21.9 Gastro-esophageal reflux disease without esophagitis; I25.10 Atherosclerotic heart disease of native coronary artery without angina pectoris; E78.5 Hyperlipidemia, unspecified
CPT/HCPCS: 0241U-QW; 36415; 70450-TC; 71045-TC-FY; 74176-TC; 80053; 81003; 82728; 82962; 83540; 84484; 85025; 85027; 87086; 87186; 93005; 93010; 93306-TC; 97116-GP; 97162-GP; 99285-25; C9803-CS; J1756; U0003; U0005

== ENCOUNTER 2022-09-24 13:11 | Inpatient (IN) | payer OTHER ==
[2022-09-24 14:11] VITALS: BMI 24.0
[2022-09-24 14:31] LABS: BASO % 1.2 % (0-2.0); EOS % 2.7 % (0-4.5); HEMATOCRIT 33.3 % (32.4-45.2); HEMOGLOBIN 10.9 GM/dL (10.7-15.3); LYMPH % 36.4 % (8-40); MCH 30.4 pg (25.7-33.7); MCHC 32.7 g/dl (32.0-36.0); MEAN CELL VOLUME 92.8 fl (80-96); MEAN PLT VOLUME 8.7 fl (7.5-11.1); MONO % 5.8 % (3.8-10.2); NEUT % 53.9 % (42.8-82.8); PLATELET COUNT 188 10^3/uL (134-434); RBC 3.59 M/mm3 (3.60-5.2); RDW 13.5 % (11.6-15.6); WHITE BLOOD COUNT 5.8 K/mm3 (4.0-10.0)
[2022-09-24 14:52] LABS: BLOOD UREA NITROGEN 45.3 mg/dL (7-18); CALCIUM 8.7 mg/dL (8.5-10.1)
[2022-09-24 14:53] LABS: ALBUMIN 3.5 g/dl (3.4-5.0)
[2022-09-24 14:56] LABS: CREATININE 1.5 mg/dL (0.55-1.3)
[2022-09-24 14:57] LABS: BILIRUBIN,TOTAL 0.5 mg/dL (0.2-1); TOT PROT 7.7 g/dl (6.4-8.2)
[2022-09-24] MEDS ORDERED: LACTATED RINGERS SOLUTION 1,000 ML/1,000 ML INFUS.BAG IV ONE (15:10)
[2022-09-24] MEDS ORDERED: clonazePAM 0.5 MG ODT TABLETS SL ONE (15:11)
[2022-09-24] MEDS ORDERED: clonazePAM 0.25 MG ODT TABLETS SL ONE (15:19)
[2022-09-24] MEDS ORDERED: TRIMETHOBENZAMIDE HCL 200MG/2ML INJ IM ONE (16:46)
[2022-09-24 17:47] LABS: EPI CELLS 7 /uL (0-25.1); HYALINE CASTS 0 /uL (0-3.1); PH,URINE 5.5 (5.0-8.0); URINE APPEARANCE CLEAR; URINE BACTERIA 1008 /uL (0-1359); URINE BILIRUBIN NEGATIVE (NEGATIVE); URINE COLOR YELLOW; URINE GLUCOSE (UA) NEGATIVE (NEGATIVE); URINE KETONE NEGATIVE (NEGATIVE); URINE LEUK ESTERASE NEGATIVE (NEGATIVE); URINE NITRITE NEGATIVE (NEGATIVE); URINE PROTEIN 2+ (NEGATIVE); URINE RBC 9 /uL (0-23.9); URINE UROBILINOGEN 0.2 mg/dL (0.2-1.0); URINE WBC 21 /uL (0-25.8)
[2022-09-24] MEDS ORDERED: DEXTROSE 50%-WATER - 25 GM/50 ML VIAL IVPUSH ONE (18:58)
[2022-09-24] MEDS ORDERED: DEXTROSE 50%-WATER 25 GM/50 ML DISP.SYRIN ONE (19:03)
[2022-09-24] MEDS ORDERED: LIDOCAINE 5% TOPICAL PATCH TP ONE ×2 (20:11)
[2022-09-24 21:19] LABS: BLOOD UREA NITROGEN 43.8 mg/dL (7-18); CALCIUM 8.2 mg/dL (8.5-10.1)
[2022-09-24 21:23] LABS: CREATININE 1.3 mg/dL (0.55-1.3)
[2022-09-24] MEDS ORDERED: LIDOCAINE PATCH REMOVAL MC SCH ×2 (22:00)
[2022-09-24] MEDS ORDERED: LORazepam 2 MG/ML SDV VIAL IVPUSH ONE (22:02)
[2022-09-25] MEDS: INSULIN SLIDING SCALE (NOVOLOG) 1 VIAL SQ SCH ×5 (06:22→21:12)
[2022-09-25] MEDS: ENOXAPARIN NA (PORCINE) 40 MG/0.4 ML DISP.SYRIN SQ SCH (09:15)
[2022-09-25 09:23] LABS: BASO % 1.2 % (0-2.0); EOS % 2.8 % (0-4.5); HEMATOCRIT 26.6 % (32.4-45.2); HEMOGLOBIN 9.1 GM/dL (10.7-15.3); LYMPH % 24.5 % (8-40); MCH 31.1 pg (25.7-33.7); MCHC 34.3 g/dl (32.0-36.0); MEAN CELL VOLUME 90.8 fl (80-96); MEAN PLT VOLUME 8.3 fl (7.5-11.1); MONO % 8.2 % (3.8-10.2); NEUT % 63.3 % (42.8-82.8); PLATELET COUNT 165 10^3/uL (134-434); RBC 2.93 M/mm3 (3.60-5.2)
[2022-09-25 09:59] LABS: CALCIUM 8.5 mg/dL (8.5-10.1)
[2022-09-25 10:00] LABS: BLOOD UREA NITROGEN 39.7 mg/dL (7-18)
[2022-09-25] MEDS ORDERED: SERTRALINE HCL 50 MG TABLET (FP) PO SCH (10:00)
[2022-09-25] MEDS ORDERED: clonazePAM 0.5 MG TABLET PO SCH (10:00)
[2022-09-25 10:03] LABS: CREATININE 1.2 mg/dL (0.55-1.3)
[2022-09-25 10:04] LABS: BILIRUBIN,TOTAL 0.3 mg/dL (0.2-1); TOT PROT 6.4 g/dl (6.4-8.2)
[2022-09-25] MEDS: FERROUS SO4 325 MG TABLET (FP) PO SCH (10:35)
[2022-09-25] MEDS: levETIRAcetam 500 MG TABLET (FP) PO SCH ×2 (10:35→21:03)
[2022-09-25] MEDS: ASPIRIN 81 MG CHEWABLE TABLETS PO SCH (10:35)
[2022-09-25] MEDS: amLODIPine BESYLATE 5 MG TABLET (FP) PO SCH (10:35)
[2022-09-25] MEDS ORDERED: SENNOSIDES 8.6MG TABLET (FP) PO SCH (22:00)
[2022-09-25] MEDS ORDERED: ATORVASTATIN CA 20 MG TABLET (FP) PO SCH (22:00)
[2022-09-26] MEDS: INSULIN SLIDING SCALE (NOVOLOG) 1 VIAL SQ SCH ×2 (06:24→11:54)
[2022-09-26 07:05] LABS: BASO % 1.2 % (0-2.0); EOS % 2.2 % (0-4.5); HEMATOCRIT 27.5 % (32.4-45.2); LYMPH % 28.6 % (8-40); MCH 30.4 pg (25.7-33.7); MEAN CELL VOLUME 92.3 fl (80-96); MEAN PLT VOLUME 8.3 fl (7.5-11.1); MONO % 9.3 % (3.8-10.2); NEUT % 58.7 % (42.8-82.8); PLATELET COUNT 164 10^3/uL (134-434); RBC 2.98 M/mm3 (3.60-5.2); RDW 12.9 % (11.6-15.6)
[2022-09-26 07:24] LABS: CALCIUM 8.3 mg/dL (8.5-10.1)
[2022-09-26 07:25] LABS: BLOOD UREA NITROGEN 46.9 mg/dL (7-18)
[2022-09-26 07:28] LABS: CREATININE 1.5 mg/dL (0.55-1.3)
[2022-09-26 07:30] LABS: BILIRUBIN,TOTAL 0.3 mg/dL (0.2-1); TOT PROT 6.2 g/dl (6.4-8.2)
[2022-09-26] MEDS ORDERED: SERTRALINE HCL 50 MG TABLET (FP) PO SCH (07:52)
[2022-09-26] MEDS: amLODIPine BESYLATE 5 MG TABLET (FP) PO SCH (10:16)
[2022-09-26] MEDS: ASPIRIN 81 MG CHEWABLE TABLETS PO SCH (10:17)
[2022-09-26] MEDS: levETIRAcetam 500 MG TABLET (FP) PO SCH (10:20)
[2022-09-26] MEDS: FERROUS SO4 325 MG TABLET (FP) PO SCH (10:20)
[2022-09-26] MEDS: ENOXAPARIN NA (PORCINE) 40 MG/0.4 ML DISP.SYRIN SQ SCH (10:21)
[2022-09-26] MEDS ORDERED: SODIUM CHLORIDE 0.45% 1,000 ML IV SCH (11:45)
[2022-09-26 14:57] VITALS: BP 107/77; PULSE 87; RESP 20; TEMP 99.3
== END 2022-09-26 15:25 | DRG 71 ==
LOC: JER 13:11 → JERBED 16:55 → J4S 21:29
PROVIDERS: ADMIT Family Medicine; ATTEND Family Medicine
DX: G93.41 Metabolic encephalopathy (principal); R47.01 Aphasia; K21.9 Gastro-esophageal reflux disease without esophagitis; I25.10 Atherosclerotic heart disease of native coronary artery without angina pectoris; I12.9 Hypertensive chronic kidney disease with stage 1 through stage 4 chronic kidney disease, or unspecified chronic kidney disease; E11.22 Type 2 diabetes mellitus with diabetic chronic kidney disease; D63.8 Anemia in other chronic diseases classified elsewhere; N18.9 Chronic kidney disease, unspecified; Z86.73 Personal history of transient ischemic attack (TIA), and cerebral infarction without residual deficits; R56.9 Unspecified convulsions; D64.9 Anemia, unspecified; Z86.16 Personal history of COVID-19; G30.9 Alzheimer's disease, unspecified; F02.80 Dementia in other diseases classified elsewhere, unspecified severity, without behavioral disturbance, psychotic disturbance, mood disturbance, and anxiety
CPT/HCPCS: 0241U-QW; 36415; 70450-TC; 71045-TC-FY; 74176-TC; 80048; 80053; 81003; 82728; 82962; 83036; 83540; 83550; 84443; 84484; 85025; 87086; 87186; 93005; 93010; 99285-25

== ENCOUNTER 2023-04-07 07:20 | Emergency (ER) | payer OTHER ==
[2023-04-07] MEDS ORDERED: ACETAMINOPHEN 500 MG TABLET (FP) PO ONE (07:54)
[2023-04-07 08:10] VITALS: TEMP 97.8
[2023-04-07 08:11] VITALS: RESP 18; BMI 26.4
[2023-04-07] MEDS ORDERED: ACETAMINOPHEN 325 MG TABLET (FP) ONE (09:09)
[2023-04-07 09:13] LABS: BASO % 1.2 % (0-2.0); EOS % 4.8 % (0-4.5); HEMATOCRIT 29.6 % (32.4-45.2); HEMOGLOBIN 9.7 GM/dL (10.7-15.3); LYMPH % 28.8 % (8-40); MCH 30.2 pg (25.7-33.7); MCHC 32.8 g/dl (32.0-36.0); MEAN CELL VOLUME 92.1 fl (80-96); MEAN PLT VOLUME 8.5 fl (7.5-11.1); MONO % 5.9 % (3.8-10.2); NEUT % 59.3 % (42.8-82.8); PLATELET COUNT 218 10^3/uL (134-434); RBC 3.22 M/mm3 (3.60-5.2); RDW 12.7 % (11.6-15.6); WHITE BLOOD COUNT 5.9 K/mm3 (4.0-10.0)
[2023-04-07 09:31] LABS: POTASSIUM 5.1 mmol/L (3.5-5.1)
[2023-04-07 09:33] LABS: CALCIUM 8.3 mg/dL (8.5-10.1)
[2023-04-07 09:34] LABS: BLOOD UREA NITROGEN 51.1 mg/dL (7-18)
[2023-04-07 09:36] LABS: CREATININE 1.4 mg/dL (0.55-1.3)
[2023-04-07 09:38] LABS: BILIRUBIN,TOTAL 0.3 mg/dL (0.2-1); MAGNESIUM 2.3 mg/dL (1.8-2.4); TOT PROT 7.2 g/dl (6.4-8.2)
[2023-04-07 16:48] VITALS: BP 163/72; PULSE 73
== END 2023-04-07 16:48 ==
LOC: JER 07:20
DX: S00.03XA Contusion of scalp, initial encounter (principal); F03.90 Unspecified dementia, unspecified severity, without behavioral disturbance, psychotic disturbance, mood disturbance, and anxiety; W19.XXXA Unspecified fall, initial encounter; Z20.822 Contact with and (suspected) exposure to COVID-19
CPT/HCPCS: 0241U-QW; 36415; 70450-TC; 70486-TC; 71045-TC-FY; 72125-TC; 80053; 83735; 84484; 85025; 93005; 93010; 99285-25

== ENCOUNTER 2023-11-19 10:31 | Inpatient (IN) | payer OTHER ==
[2023-11-19 11:30] LABS: VENOUS BASE EXCESS -21.8 mmol/L (-2-2); VENOUS O2 SATURATION 79.7 % (70-80); VENOUS PCO2 26.6 mmHg (38-52)
[2023-11-19 11:32] LABS: VENOUS PH 7.05 (7.310-7.410)
[2023-11-19 11:37] LABS: HEMATOCRIT 30.9 % (32.4-45.2); HEMOGLOBIN 9.7 GM/dL (10.7-15.3); MCH 30.8 pg (25.7-33.7); MCHC 31.3 g/dl (32.0-36.0); MEAN CELL VOLUME 98.1 fl (80-96); MEAN PLT VOLUME 8.8 fl (7.5-11.1); PLATELET COUNT 279 10^3/uL (134-434); RBC 3.15 M/mm3 (3.60-5.2); RDW 21.6 % (11.6-15.6)
[2023-11-19 11:43] LABS: INR 0.98 (0.83-1.09); PROTHROMBIN TIME (PATIENT) 11.4 SEC (9.7-13.0)
[2023-11-19 11:46] LABS: ACTIVATED PTT 35.8 SECONDS (25.2-36.5)
[2023-11-19 11:51] LABS: MAGNESIUM 2.2 mg/dL (1.8-2.4)
[2023-11-19 11:55] LABS: LACTIC ACID 2.6 mmol/L (0.4-2.0)
[2023-11-19] MEDS ORDERED: PIPERACILLIN/TAZOB 2.25 GM 2.25 GM/50 ML BAG IVPB ONE (12:04)
[2023-11-19] MEDS: LACTATED RINGERS SOLUTION 1000 ML INFUS.BAG IV ONE (12:10)
[2023-11-19] MEDS: PIPERACILLIN/TAZOB 2.25 GM 2.25 GM in DEXTROSE 5%-WATER - 50 ML IVPB ONE (12:11)
[2023-11-19] MEDS ORDERED: VANCOMYCIN 1 GRAM (PRE-DOCKED) 1,000 MG/250 ML BAG IVPB ONE (12:19)
[2023-11-19 12:25] LABS: ALBUMIN 1.5 g/dl (3.4-5.0); BLOOD UREA NITROGEN 58.3 mg/dL (7-18); CALCIUM 7.1 mg/dL (8.5-10.1)
[2023-11-19] MEDS: VANCOMYCIN 1,000 MG in DEXTROSE 5%-WATER - 250 ML IVPB ONE (12:26)
[2023-11-19 12:28] LABS: CREATININE 2.7 mg/dL (0.55-1.3)
[2023-11-19 12:29] LABS: TOT PROT 5.4 g/dl (6.4-8.2)
[2023-11-19 12:30] LABS: BILIRUBIN,TOTAL 0.3 mg/dL (0.2-1)
[2023-11-19 12:47] LABS: WHITE BLOOD COUNT 6.3 K/mm3 (4.0-10.0)
[2023-11-19 13:04] LABS: ANISOCYTOSIS 1+; MACROCYTOSIS 1+
[2023-11-19 13:59] LABS: VENOUS BASE EXCESS -21.4 mmol/L (-2-2); VENOUS O2 SATURATION 62.8 % (70-80); VENOUS PCO2 27.6 mmHg (38-52)
[2023-11-19 14:01] LABS: VENOUS PH 7.055 (7.310-7.410)
[2023-11-19 14:19] LABS: BLOOD UREA NITROGEN 57.2 mg/dL (7-18)
[2023-11-19 14:22] LABS: CREATININE 2.7 mg/dL (0.55-1.3)
[2023-11-19 14:41] LABS: LACTIC ACID 3.2 mmol/L (0.4-2.0)
[2023-11-19] MEDS ORDERED: SODIUM BICARBONATE 8.4% 50 MEQ/50 ML DISP.SYRIN ONE (15:10)
[2023-11-19] MEDS: SODIUM BICARBONATE 8.4% - 150 MEQ in DEXTROSE 5%-WATER - 950 ML IVPB SCH (15:31)
[2023-11-19] MEDS ORDERED: NOREPINEPHRINE BITARTRATE/D5W 8 MG/250 ML BAG IVPB ONE (15:32)
[2023-11-19] MEDS: NOREPINEPHRINE BITARTRATE 4,000 MCG in DEXTROSE 5%-WATER - 496 ML IV SCH (15:40)
[2023-11-19] MEDS ORDERED: LEVOTHYROXINE SODIUM 100 MCG 5 ML VIAL IVPUSH SCH (17:15)
[2023-11-19] MEDS ORDERED: NOREPINEPHRINE BITARTRATE 16,000 MCG in SODIUM CHLORIDE 484 ML IV SCH (17:30)
[2023-11-19] MEDS: HEPARIN NA (PORCINE) 5,000 UNITS/ML 1ML VIAL SQ SCH (17:33)
[2023-11-19] MEDS ORDERED: INSULIN (NOVOLOG) ASPART 100 UNITS/ML 10ML VIAL ONE (17:35)
[2023-11-19] MEDS: NOREPINEPHRINE BITARTRATE/D5W 8 MG/250 ML BAG IVPB SCH (17:45)
[2023-11-19] MEDS: SODIUM BICARBONATE 8.4% 50 MEQ/50 ML DISP.SYRIN IVPUSH ONE (17:53)
[2023-11-19] MEDS: INSULIN ASPART SLIDING SCALE (NOVOLOG) 1 VIAL SQ SCH (17:55)
[2023-11-19] MEDS: HYDROCORTISONE SOD SUCCINATE 100 MG/2 ML VIAL IVPB SCH (18:11)
[2023-11-19] MEDS: LEVOTHYROXINE SODIUM 100 MCG 5 ML VIAL IVPUSH ONE (18:11)
[2023-11-19 18:18] LABS: ARTERIAL BLD GAS O2 SATURATION 99.4 % (95-98); ARTERIAL BLOOD GAS BASE EXCESS -15.1 mmol/L (-2-2); ARTERIAL BLOOD GAS PO2 230.6 mmHg (80-100)
[2023-11-19 18:23] LABS: ALLENS TEST POSITIVE
[2023-11-19 18:24] LABS: VENT MODE S/T; VENT RATE 14
[2023-11-19 20:28] LABS: EPI CELLS 9 /uL (0-25.1); HYALINE CASTS 0 /uL (0-3.1); PH,URINE 5.5 (5.0-8.0); URINE APPEARANCE TURBID; URINE BACTERIA 1160 /uL (0-1359); URINE BILIRUBIN NEGATIVE (NEGATIVE); URINE COLOR YELLOW; URINE GLUCOSE (UA) NEGATIVE (NEGATIVE); URINE KETONE NEGATIVE (NEGATIVE); URINE LEUK ESTERASE 3+ (NEGATIVE); URINE NITRITE NEGATIVE (NEGATIVE); URINE PROTEIN 2+ (NEGATIVE); URINE UROBILINOGEN 0.2 mg/dL (0.2-1.0); URINE WBC 7550 /uL (0-25.8)
[2023-11-19 20:53] LABS: LACTIC ACID 4.8 mmol/L (0.4-2.0)
[2023-11-19] MEDS: CHLORHEXIDINE GLUCONATE 4% CLEANSER FOR DECOLONIZATION TP SCH (21:25)
[2023-11-19] MEDS: PIPERACILLIN/TAZOB 2.25 GM 2.25 GM in DEXTROSE 5%-WATER - 50 ML IVPB SCH (21:25)
[2023-11-19] MEDS: MUPIROCIN 2% TOPICAL OINTMENT FOR DECOLONIZATION NS SCH (21:26)
[2023-11-19 22:56] LABS: URINE RBC 208.9 /uL (0-23.9); YEAST MODERATE (NEGATIVE)
[2023-11-20] MEDS: VASopressin 40 UNITS/100 ML BAG IV SCH (04:10)
[2023-11-20] MEDS: LEVOTHYROXINE SODIUM 100 MCG 5 ML VIAL IVPUSH SCH (06:02)
[2023-11-20 06:57] LABS: HEMATOCRIT 27.9 % (32.4-45.2); HEMOGLOBIN 9.1 GM/dL (10.7-15.3); MCHC 32.8 g/dl (32.0-36.0); MEAN CELL VOLUME 94.5 fl (80-96); MEAN PLT VOLUME 8.9 fl (7.5-11.1); PLATELET COUNT 248 10^3/uL (134-434); RBC 2.95 M/mm3 (3.60-5.2); RDW 21.1 % (11.6-15.6)
[2023-11-20 07:02] LABS: CHLORIDE 107 mmol/L (98-107); POTASSIUM 3.7 mmol/L (3.5-5.1); SODIUM 134 mmol/L (136-145); WHITE BLOOD COUNT 7.3 K/mm3 (4.0-10.0)
[2023-11-20 07:04] LABS: ALBUMIN 1.3 g/dl (3.4-5.0); ANION GAP 10 mmol/L (4-13); BLOOD UREA NITROGEN 56.4 mg/dL (7-18); CO2 17 mmol/L (21-32); GLUCOSE,RANDOM 159 mg/dL (74-106); MAGNESIUM 1.8 mg/dL (1.8-2.4)
[2023-11-20 07:07] LABS: CREATININE 2.6 mg/dL (0.55-1.3); PHOSPHOROUS 3.2 mg/dL (2.5-4.9); SGOT/AST 42 U/L (15-37); SGPT/ALT 21 U/L (13-61)
[2023-11-20 07:09] LABS: BILIRUBIN,TOTAL 0.4 mg/dL (0.2-1); TOT PROT 4.5 g/dl (6.4-8.2)
[2023-11-20 07:14] LABS: ALK PHOS 765 U/L (45-117); CALCIUM 6.6 mg/dL (8.5-10.1)
[2023-11-20] MEDS: MEROPENEM 500 MG in DEXTROSE 5%-WATER 100 ML IVPB SCH ×2 (08:30→20:48)
[2023-11-20] MEDS: CALCIUM GLUCONATE 10% - 1,000 MG/10 ML VIAL IVPB ONE (08:56)
[2023-11-20] MEDS: PIPERACILLIN/TAZOB 2.25 GM 2.25 GM in DEXTROSE 5%-WATER - 50 ML IVPB SCH (08:56)
[2023-11-20 09:03] LABS: LACTIC ACID 4.8 mmol/L (0.4-2.0)
[2023-11-20 09:40] LABS: ANISOCYTOSIS 1+; CORRECTED WBC 4.77 K/mm3; MACROCYTOSIS 1+
[2023-11-20] MEDS ORDERED: LEVOTHYROXINE SODIUM 100 MCG 5 ML VIAL IVPUSH SCH (10:00)
[2023-11-20 10:04] LABS: ARTERIAL BLD GAS O2 SATURATION 96.4 % (95-98); ARTERIAL BLOOD GAS PO2 86.8 mmHg (80-100); ARTERIAL BLOOD GAS pH 7.347 (7.350-7.450)
[2023-11-20 10:07] LABS: ALLENS TEST POSITIVE
[2023-11-20 10:10] LABS: VENT MODE S/T; VENT RATE 14
[2023-11-20 10:51] LABS: N-TERMINAL BNP 6604.3 pg/ml (5-450)
[2023-11-20] MEDS ORDERED: INSULIN (NOVOLOG) ASPART 100 UNITS/ML 10ML VIAL ONE ×3 (11:00→16:10)
[2023-11-20] MEDS: VANCOMYCIN/WATER 1250 MG 1,250 MG/250 ML BAG IVPB SCH ×2 (11:29→13:30)
[2023-11-20] MEDS: FUROSEMIDE INJECTION 100 MG in SODIUM CHLORIDE 40 ML IVPB SCH (11:54)
[2023-11-20 18:26] LABS: LACTIC ACID 6.7 mmol/L (0.4-2.0)
[2023-11-20] MEDS: SODIUM CHLORIDE 0.9% 500 ML INFUS.BAG IV ONE (19:00)
[2023-11-20 20:58] LABS: ARTERIAL BLD GAS O2 SATURATION 93.8 % (95-98); ARTERIAL BLOOD GAS PO2 76.1 mmHg (80-100)
[2023-11-20 21:02] LABS: ALLENS TEST POSITIVE
[2023-11-20 21:03] LABS: PT'S TEMP 97.4; VENT MODE S/T; VENT RATE 14
[2023-11-20 21:13] LABS: CHLORIDE 107 mmol/L (98-107); POTASSIUM 3.7 mmol/L (3.5-5.1); SODIUM 135 mmol/L (136-145)
[2023-11-20 21:15] LABS: ANION GAP 15 mmol/L (4-13); CO2 13 mmol/L (21-32); GLUCOSE,RANDOM 151 mg/dL (74-106)
[2023-11-20 21:16] LABS: ALBUMIN 1.2 g/dl (3.4-5.0); BLOOD UREA NITROGEN 56.2 mg/dL (7-18); MAGNESIUM 1.8 mg/dL (1.8-2.4)
[2023-11-20 21:18] LABS: SGOT/AST 40 U/L (15-37); SGPT/ALT 18 U/L (13-61)
[2023-11-20 21:19] LABS: CREATININE 2.6 mg/dL (0.55-1.3)
[2023-11-20 21:20] LABS: BILIRUBIN,TOTAL 0.4 mg/dL (0.2-1); TOT PROT 4.4 g/dl (6.4-8.2)
[2023-11-20 21:22] LABS: ALK PHOS 654 U/L (45-117); CALCIUM 6.4 mg/dL (8.5-10.1)
[2023-11-20 23:19] LABS: LACTIC ACID 5.9 mmol/L (0.4-2.0)
[2023-11-21 07:07] LABS: HEMATOCRIT 27.8 % (32.4-45.2); HEMOGLOBIN 8.8 GM/dL (10.7-15.3); MCH 30.1 pg (25.7-33.7); MCHC 31.6 g/dl (32.0-36.0); MEAN CELL VOLUME 95.4 fl (80-96); MEAN PLT VOLUME 8.9 fl (7.5-11.1); PLATELET COUNT 196 10^3/uL (134-434); RBC 2.91 M/mm3 (3.60-5.2); RDW 21.6 % (11.6-15.6)
[2023-11-21 07:24] LABS: WHITE BLOOD COUNT 17.7 K/mm3 (4.0-10.0)
[2023-11-21 07:40] LABS: BILIRUBIN,TOTAL 0.4 mg/dL (0.2-1); BLOOD UREA NITROGEN 55.9 mg/dL (7-18)
[2023-11-21 07:41] LABS: ALK PHOS 680 U/L (45-117); TOT PROT 4.7 g/dl (6.4-8.2)
[2023-11-21 07:42] LABS: CO2 11 mmol/L (21-32); GLUCOSE,RANDOM 184 mg/dL (74-106); SGOT/AST 45 U/L (15-37)
[2023-11-21 07:43] LABS: ALBUMIN 1.3 g/dl (3.4-5.0); CREATININE 2.8 mg/dL (0.55-1.3); MAGNESIUM 1.9 mg/dL (1.8-2.4); SGPT/ALT 17 U/L (13-61)
[2023-11-21 07:46] LABS: ANION GAP 19 mmol/L (4-13); CHLORIDE 105 mmol/L (98-107); POTASSIUM 3.9 mmol/L (3.5-5.1); SODIUM 134 mmol/L (136-145)
[2023-11-21 08:33] LABS: CALCIUM 6.6 mg/dL (8.5-10.1)
[2023-11-21 10:34] LABS: ANISOCYTOSIS 0; CORRECTED WBC 14.51 K/mm3; MACROCYTOSIS 0
[2023-11-21 13:20] VITALS: BMI 23.3
[2023-11-21] MEDS: SODIUM BICARBONATE 8.4% 50 MEQ/50 ML DISP.SYRIN IVPUSH SCH (15:05)
[2023-11-22 06:37] LABS: HEMATOCRIT 28.4 % (32.4-45.2); HEMOGLOBIN 9.1 GM/dL (10.7-15.3); MCH 30.5 pg (25.7-33.7); MEAN CELL VOLUME 95.2 fl (80-96); MEAN PLT VOLUME 8.3 fl (7.5-11.1); PLATELET COUNT 168 10^3/uL (134-434); RBC 2.99 M/mm3 (3.60-5.2); RDW 21.3 % (11.6-15.6)
[2023-11-22 06:50] LABS: WHITE BLOOD COUNT 22.1 K/mm3 (4.0-10.0)
[2023-11-22 06:57] LABS: CHLORIDE 102 mmol/L (98-107); POTASSIUM 3.7 mmol/L (3.5-5.1); SODIUM 131 mmol/L (136-145)
[2023-11-22 07:01] LABS: ALBUMIN 1.4 g/dl (3.4-5.0); ANION GAP 14 mmol/L (4-13); BLOOD UREA NITROGEN 57.6 mg/dL (7-18); CO2 15 mmol/L (21-32); GLUCOSE,RANDOM 207 mg/dL (74-106); MAGNESIUM 1.7 mg/dL (1.8-2.4)
[2023-11-22 07:04] LABS: CREATININE 2.9 mg/dL (0.55-1.3); PHOSPHOROUS 4.1 mg/dL (2.5-4.9); SGOT/AST 49 U/L (15-37); SGPT/ALT 17 U/L (13-61)
[2023-11-22 07:05] LABS: BILIRUBIN,TOTAL 0.6 mg/dL (0.2-1); TOT PROT 4.6 g/dl (6.4-8.2)
[2023-11-22 07:16] LABS: ALK PHOS 616 U/L (45-117); CALCIUM 6.3 mg/dL (8.5-10.1)
[2023-11-22] MEDS ORDERED: SODIUM CHLORIDE 1,000 ML IV SCH (07:30)
[2023-11-22] MEDS: MAGNESIUM 2GM/50ML STERILE WATER IVPB IVPB ONE (08:22)
[2023-11-22] MEDS: CALCIUM GLUCONATE 10% - 1,000 MG/10 ML VIAL IVPB ONE (08:30)
[2023-11-22 09:52] LABS: CORRECTED WBC 19.39 K/mm3
[2023-11-22 10:10] VITALS: TEMP 97.9
[2023-11-22] MEDS: NOREPINEPHRINE 0.9 % NACL 8 MG/250 ML BAG IVPB SCH (12:08)
[2023-11-22 12:11] VITALS: BP 67/49
[2023-11-22 12:20] VITALS: RESP 30
[2023-11-22] MEDS ORDERED: NOREPINEPHRINE BITARTRATE 4 MG/4 ML ML IV ONE (13:10)
[2023-11-22] MEDS: MORPHINE SULFATE/0.9% NACL/PF 100 MG/100 ML BAG IVPB SCH (16:22)
[2023-11-22] MEDS: PHENYLEPHRINE NS PREMIX 50,000 MCG/500 ML BAG IVPB SCH (16:23)
[2023-11-22] MEDS: MORPHINE 100 MG/100 ML MG IVPB SCH (16:29)
[2023-11-22 18:28] VITALS: PULSE 40
== END 2023-11-22 21:22 | disposition expired | DRG 871 ==
LOC: JER 10:31 → JERBED 12:37 → JICU 16:18
PROVIDERS: ADMIT Internal Medicine; ATTEND Internal Medicine
PROC: 05HY33Z Insertion of Infusion Device into Upper Vein, Percutaneous Approach (ICD-10-PCS; principal; 2023-11-19)
DX: A41.9 Sepsis, unspecified organism (principal); E03.5 Myxedema coma; R65.21 Severe sepsis with septic shock; J96.01 Acute respiratory failure with hypoxia; J18.9 Pneumonia, unspecified organism; E87.21 Acute metabolic acidosis; N39.0 Urinary tract infection, site not specified; F03.90 Unspecified dementia, unspecified severity, without behavioral disturbance, psychotic disturbance, mood disturbance, and anxiety; E11.22 Type 2 diabetes mellitus with diabetic chronic kidney disease; E03.9 Hypothyroidism, unspecified; D64.9 Anemia, unspecified; N18.9 Chronic kidney disease, unspecified; I25.10 Atherosclerotic heart disease of native coronary artery without angina pectoris; I12.9 Hypertensive chronic kidney disease with stage 1 through stage 4 chronic kidney disease, or unspecified chronic kidney disease; E78.5 Hyperlipidemia, unspecified; L89.150 Pressure ulcer of sacral region, unstageable; T68.XXXA Hypothermia, initial encounter; I46.9 Cardiac arrest, cause unspecified; X58.XXXA Exposure to other specified factors, initial encounter; Y93.9 Activity, unspecified; Y92.9 Unspecified place or not applicable
CPT/HCPCS: 0241U-QW; 36415; 36600; 71045-TC-FY; 76775-TC; 76937; 80048; 80053; 81003; 82024; 82533; 82550; 82553; 82803; 82962; 83605; 83735; 83880; 84100; 84439; 84443; 84484; 85025; 85027; 85610; 85730; 86850; 86900; 86901; 87040; 87086; 87186; 93005; 93010; 93306-TC; 93308; 94660; 99285-25; G0480; J1644; J3490